=== PATIENT | male | born 1945 | race American Indian/Alaskan Native ===

== ENCOUNTER 2018-01-31 16:18 | Inpatient (IN) | payer MEDICARE ==
[2018-01-31] MEDS ORDERED: NITRO-BID 2% TP ONE ×2 (16:40→16:41)
[2018-01-31 17:06] LABS: Basophils % (Auto) 0.5 % (0.0-1.8); Eosinophils # (Auto) 0.1 K/mm3 (0.0-0.4); Eosinophils % (Auto) 1.1 % (0.0-4.3); Hematocrit 28.3 % (35.5-45.6); Hemoglobin 8.5 gm/dl (11.8-15.2); Lymphocytes # (Auto) 0.2 K/mm3 (1.2-5.4); Lymphocytes % (Auto) 3.6 % (13.4-35.0); Mean Corpuscular HGB Conc 30 % (32-34); Mean Corpuscular Volume 83 fl (84-94); Monocytes # (Auto) 0.8 K/mm3 (0.0-0.8); Monocytes % (Auto) 11.6 % (0.0-7.3); Platelet Count 289 K/mm3 (140-440); Red Cell Distribution Width 16.1 % (13.2-15.2)
[2018-01-31] MEDS ORDERED: NACL 0.9% 100 ML IV PRN (17:08)
[2018-01-31] MEDS ORDERED: NORMODYNE IV ONE ×3 (17:11→18:27)
[2018-01-31 17:13] LABS: Mean Corpuscular Hemoglobin 25 pg (28-32)
[2018-01-31 17:16] LABS: INR 1.38 (0.87-1.13)
[2018-01-31 17:17] LABS: Partial Thromboplastin Time 36.7 Sec. (24.2-36.6)
--- NOTE | 2018-01-31 17:30 | XRay Report ---
FINAL REPORT EXAM: XR CHEST 1V AP HISTORY: Dyspnea TECHNIQUE: Frontal chest radiograph. PRIORS: None. FINDINGS: There is mild cardiomegaly. Atherosclerotic calcifications are seen in the thoracic aorta. Scattered diffuse increased interstitial markings are seen in the lungs with more confluent ground-glass opacities in the right lower lobe. There is likely a small right pleural effusion. No pneumothorax. No acute osseous abnormality. IMPRESSION: Findings may represent interstitial pneumonitis versus pulmonary edema. Small right pleural effusion. Right lower lobe atelectasis versus pneumonia.
--- NOTE | 2018-01-31 17:35 | Emergency Department Report ---
ED General Adult HPI - General Chief complaint: Dyspnea/Respdistress Stated complaint: SEBASTIAN Time Seen by Provider: 01/31/18 16:24 Source: family, EMS Mode of arrival: Stretcher Limitations: Other - History of Present Illness Initial comments: The patient was transported to this facility on CPAP. He is not to be a bit hypotensive in the field. His sugar was normal. Paramedics were unaware of his pulse oximetry on room air because transport was primary service and the patient was already placed on supplemental O2 by the fire department. Patient states that he is breathing better. He is observed have continued increased work of breathing. However, he is awake and alert. Per paramedics his mental status has improved since they began CPAP. Patient does not complain of pain. He denies recent fever or chills. His family states he was too short of breath to make it to dialysis today. This is his regular scheduled today. He did not miss dialysis on Saturday. However apparently he cut his dialysis short on Saturday. He is currently a chronic dialysis patient at [facility] in [place]. -: Gradual Severity scale (0 -10): 0 - Related Data Home Medications Medication Instructions Recorded Confirmed Last Taken Prednisone 5 mg PO DAILY 01/31/18 01/31/18 1 Day Ago ~01/30/18 Tacrolimus [Prograf] 3 mg PO BID 01/31/18 01/31/18 1 Day Ago ~01/30/18 Tamsulosin [Flomax] 0.4 mg PO QHS 01/31/18 01/31/18 1 Day Ago ~01/30/18 cloNIDine [Catapres] 0.2 mg PO TID 01/31/18 01/31/18 1 Day Ago ~01/30/18 Allergies Allergy/AdvReac Type Severity Reaction Status Date / Time No Known Allergies Allergy Unverified 04/18/15 19:25 ED Review of Systems ROS: Stated complaint: SEBASTIAN Other details as noted in HPI Constitutional: denies: chills, fever Eyes: denies: eye discharge, vision change ENT: denies: ear pain, throat pain Respiratory: see HPI, shortness of breath Cardiovascular: denies: chest pain, palpitations Endocrine: no symptoms reported Gastrointestinal: denies: abdominal pain, vomiting Genitourinary: as per HPI Musculoskeletal: denies: back pain, joint swelling, arthralgia Skin: denies: rash, lesions Neurological: denies: headache, weakness Psychiatric: denies: anxiety, depression Hematological/Lymphatic: denies: easy bleeding, easy bruising ED Past Medical Hx - Past Medical History Hx Hypertension: Yes Hx Congestive Heart Failure: Yes Hx Diabetes: Yes Hx Renal Disease: Yes - Surgical History Additional Surgical History: kidney transplant 2 years ago - Social History Smoking Status: Never Smoker Substance Use Type: None - Medications Home Medications: Home Medications Medication Instructions Recorded Confirmed Last Taken Type Prednisone 5 mg PO DAILY 01/31/18 01/31/18 1 Day Ago History ~01/30/18 Tacrolimus [Prograf] 3 mg PO BID 01/31/18 01/31/18 1 Day Ago History ~01/30/18 Tamsulosin [Flomax] 0.4 mg PO QHS 01/31/18 01/31/18 1 Day Ago History ~01/30/18 cloNIDine [Catapres] 0.2 mg PO TID 01/31/18 01/31/18 1 Day Ago History ~01/30/18 ED Physical Exam - General Limitations: Physical Limitation, Other General appearance: alert, in no apparent distress - Head Head exam: Present: atraumatic, normocephalic - Eye Eye exam: Present: normal appearance. Absent: scleral icterus - ENT ENT exam: Present: mucous membranes moist - Neck Neck exam: Present: normal inspection. Absent: tenderness, meningismus - Respiratory Respiratory exam: Present: respiratory distress, rales (entire lung field bilaterally), accessory muscle use, other (increased work of breathing) - Cardiovascular Cardiovascular Exam: Present: regular rate, normal rhythm. Absent: systolic murmur, diastolic murmur, rubs, gallop - GI/Abdominal GI/Abdominal exam: Present: soft, normal bowel sounds. Absent: distended, tenderness, guarding, rebound, rigid - Rectal Rectal exam: Present: deferred - Extremities Exam Extremities exam: Present: normal inspection - Back Exam Back exam: Present: normal inspection - Neurological Exam Neurological exam: Present: alert, oriented X3, CN II-XII intact. Absent: motor sensory deficit - Psychiatric Psychiatric exam: Present: normal affect, normal mood - Skin Skin exam: Present: warm, dry, intact, normal color. Absent: rash ED Course Vital Signs 01/31/18 01/31/18 01/31/18 16:19 16:21 16:25 Temperature 97.9 F Pulse Rate 91 H 90 Respiratory 28 H 26 H 28 H Rate Blood Pressure Blood Pressure [Right] O2 Sat by Pulse 91 100 100 Oximetry O2 Sat by Pulse Oximetry [ Bilateral Throughout] 01/31/18 01/31/18 01/31/18 16:30 16:31 16:44 Temperature Pulse Rate 85 78 Respiratory 21 Rate Blood Pressure 179/80 175/90 Blood Pressure 179/80 [Right] O2 Sat by Pulse 100 Oximetry O2 Sat by Pulse Oximetry [ Bilateral Throughout] 01/31/18 01/31/18 01/31/18 16:45 17:01 17:13 Temperature Pulse Rate 82 82 82 Respiratory 19 17 Rate Blood Pressure 176/76 181/78 185/78 Blood Pressure [Right] O2 Sat by Pulse 100 100 Oximetry O2 Sat by Pulse Oximetry [ Bilateral Throughout] 01/31/18 01/31/18 01/31/18 17:15 17:31 17:45 Temperature 98.8 F Pulse Rate 70 74 71 Respiratory 16 17 18 Rate Blood Pressure 167/74 167/72 184/82 Blood Pressure [Right] O2 Sat by Pulse 97 100 100 Oximetry O2 Sat by Pulse 100 Oximetry [ Bilateral Throughout] 01/31/18 01/31/18 01/31/18 18:00 18:15 18:30 Temperature Pulse Rate 72 71 73 Respiratory 18 18 Rate Blood Pressure 192/95 191/87 187/85 Blood Pressure [Right] O2 Sat by Pulse 100 100 Oximetry O2 Sat by Pulse Oximetry [ Bilateral Throughout] 01/31/18 18:45 Temperature Pulse Rate 72 Respiratory Rate Blood Pressure 201/91 Blood Pressure [Right] O2 Sat by Pulse Oximetry O2 Sat by Pulse Oximetry [ Bilateral Throughout] - Reevaluation(s) Reevaluation #1: Patient was placed on BiPAP. He continues to be clinically stable. His chest x -ray is consistent with pulmonary edema. I spoke to Dr. Pizano and the dialysis unit concerning urgent dialysis. This is pending. Patient will be admitted by the hospitalist service. 01/31/18 17:36 Reevaluation #2: Patient has been seen by nephrology. He has been given a titrated dose of labetalol during his dialysis. We have been able to take him off BiPAP now. He will be admitted by the hospitalist service. 01/31/18 18:53 ED Medical Decision Making - Lab Data Result diagrams: 01/31/18 16:35 01/31/18 16:35 Laboratory Results - last 24 hr 01/31/18 01/31/18 01/31/18 16:35 16:35 16:35 WBC 6.5 RBC 3.40 L Hgb 8.5 L Hct 28.3 L MCV 83 L MCH 25 L MCHC 30 L RDW 16.1 H Plt Count 289 Lymph % (Auto) 3.6 L [place] % (Auto) 11.6 H Eos % (Auto) 1.1 Baso % (Auto) 0.5 Lymph # 0.2 L [place] # 0.8 Eos # 0.1 Baso # 0.0 Seg Neutrophils % 83.2 H Seg Neutrophils # 5.4 PT 17.8 H INR 1.38 H APTT 36.7 H Sodium 137 Potassium 4.0 Chloride 93.7 L Carbon Dioxide 23 Anion Gap 24 BUN 31 H Creatinine 5.7 H Estimated GFR 12 BUN/Creatinine Ratio 5 Glucose 318 H Calcium 7.0 L Magnesium 1.80 - EKG Data -: EKG Interpreted by Me EKG shows normal: sinus rhythm, intervals Rate: normal - EKG Data Interpretation: LVH (associated repolarization abnormality) - Radiology Data Radiology results: report reviewed (pulmonary edema noted) interpreted by me: Pulmonary edema Critical Care Time: Yes Critical care time in (mins) excluding proc time.: 70 Critical care attestation.: If time is entered above; I have spent that time in minutes in the direct care of this critically ill patient, excluding procedure time. ED Disposition Clinical Impression: ESRD needing dialysis, Uncontrolled hypertension Pulmonary edema Qualifiers: Chronicity: acute Qualified Code(s): J81.0 - Acute pulmonary edema Anemia Qualifiers: Anemia type: unspecified type Qualified Code(s): D64.9 - Anemia, unspecified Hyperglycemia due to type 2 diabetes mellitus Qualifiers: Diabetes mellitus retirement insulin use: unspecified retirement insulin use status Qualified Code(s): E11.65 - Type 2 diabetes mellitus with hyperglycemia Disposition: OP ADMIT IP TO THIS HOSP Is pt being admited?: Yes Does the pt Need Aspirin: Yes Condition: Stable Time of Disposition: 18:51
[2018-01-31 17:37] LABS: Alanine Aminotransferase 33 units/L (7-56); Albumin 3.2 g/dL (3.9-5); Bilirubin,Direct 0.2 mg/dL (0-0.2)
[2018-01-31] MEDS ORDERED: HumuLIN R IV ONE (17:37)
[2018-01-31 17:55] LABS: Chol/HDL Ratio 1.87 %; HDL Cholesterol 62 mg/dL (40-59); LDL Cholesterol,Direct 47 mg/dL (50-130)
--- NOTE | 2018-01-31 18:36 | Consultation ---
History of Present Illness - Reason for Consult Consult date: 01/31/18 end stage renal disease, accelerated hypertension, other (Pulmonary edema, volume overload) - History of Present Illness The patient is a 72 YO AAM with historsy significant for S/p failed Renal transplant started back on hemodialysis few days ago, ESRD, HTN, Anemia and medical non-compliance was brought into the ER by EMS with shortness of breath. Unable to obtain detailed history from patient sine patient was on BiPAP. He was found to have volume overload with pulmonary edema. During the last hemodialysis treatment he refused to remove sufficient fluid and reduced the dialysis time. He gets hemodialysis at [facility] and followed by . Patient was seen and examined while he was on hemodialysis. Past History Past Medical History: anemia, dialysis, ESRD, hypertension, other (Failed kidney transplant.) Medications and Allergies Allergies Allergy/AdvReac Type Severity Reaction Status Date / Time No Known Allergies Allergy Unverified 04/18/15 19:25 Home Medications Medication Instructions Recorded Confirmed Last Taken Type Prednisone 5 mg PO DAILY 01/31/18 01/31/18 1 Day Ago History ~01/30/18 Tacrolimus [Prograf] 3 mg PO BID 01/31/18 01/31/18 1 Day Ago History ~01/30/18 Tamsulosin [Flomax] 0.4 mg PO QHS 01/31/18 01/31/18 1 Day Ago History ~01/30/18 cloNIDine [Catapres] 0.2 mg PO TID 01/31/18 01/31/18 1 Day Ago History ~01/30/18 Active Meds: Active Medications Sodium Chloride (Nacl 0.9%) 100 mls @ 999 mls/hr IV VEDA PRN PRN Reason: Hypotension Review of Systems ROS unobtainable: due to mental status (Patient was on BiPAP) Exam - Vital Signs Vital signs: Vital Signs Temp Pulse Resp Pulse Ox 97.9 F 91 H 28 H 91 01/31/18 16:19 01/31/18 16:19 01/31/18 16:19 01/31/18 16:19 - General Appearance General appearance: well-developed, well-nourished, appears stated age, other ( on BIPAP) EENT: ATNC, PERRL, hearing intact Neck: Present: neck supple, trachea midline Heart: regular, S1S2, no murmurs Gastrointestinal: Present: normoactive bowel sounds. Absent: tenderness Integumentary: no rash, warm and dry Neurologic: other (follows command) Musculoskeletal: Present: other (left arm AVF, no edema) Psychiatric: cooperative Results - Lab Results 01/31/18 16:35 01/31/18 16:35 Most recent lab results Calcium 7.0 mg/dL (8.4-10.2) L 01/31/18 16:35 Phosphorus 3.40 mg/dL (2.5-4.5) 01/31/18 16:35 Magnesium 1.80 mg/dL (1.7-2.3) 01/31/18 16:35 Assessment and Plan 1. Volume overload with pulmonary edema: Emergent hemodialysis as planned. UF 3-4 Lts as tolerated. 2. ESRD: Hemodialysis three times a week. 3. Uncontrolled HTN: UF with hemodialysis. Resume home meds. Monitor BP. 4. Anemia: Epogen when the BP is controlled. 5. Medical non-compliance.
[2018-01-31] MEDS: BABY ASPIRIN PO SCH (22:48)
[2018-02-01] MEDS ORDERED: D50W (25GM) Syringe IV PRN (09:37)
--- NOTE | 2018-02-01 10:07 | Progress Note ---
Assessment and Plan 1. Volume overload with pulmonary edema: Symptoms improved after urgent hemodialysis yesterday. 2. ESRD: Hemodialysis three times a week. 3. Uncontrolled HTN: BP is better. 4. Anemia: Epogen as needed. 5. Medical non-compliance: Compliance encouraged. Subjective Date of service: 02/01/18 Interval history: Patient is feeling better today. Objective - Vital Signs Vital signs: Vital Signs - 12hr 01/31/18 01/31/18 02/01/18 22:10 22:35 00:19 Temperature 97.9 F 97.2 F L Pulse Rate 74 72 68 Respiratory 14 22 18 Rate Blood Pressure 151/69 155/68 171/80 O2 Sat by Pulse 100 99 100 Oximetry 02/01/18 02/01/18 02/01/18 01:25 05:03 08:06 Temperature 98.1 F 98.8 F Pulse Rate 68 72 70 Respiratory 20 18 Rate Blood Pressure 172/79 175/80 O2 Sat by Pulse 100 100 Oximetry - General Appearance General appearance: well-developed, well-nourished, appears stated age, other ( no distress) EENT: ATNC, PERRL, hearing intact Neck: supple Respiratory: Present: Clear to Ascultation Cardiology: S1S2, no murmurs Gastrointestinal: normoactive bowel sounds, no tenderness Integumentary: no rash, warm and dry Neurologic: no focal deficit, no asterixis, alert and oriented x3 Musculoskeletal: other (no edema, left arm AVF) Psychiatric: mood/affect appropriate, cooperative - Lab 01/31/18 16:35 01/31/18 16:35 Most recent lab results Calcium 7.0 mg/dL (8.4-10.2) L 01/31/18 16:35 Phosphorus 3.40 mg/dL (2.5-4.5) 01/31/18 16:35 Magnesium 1.80 mg/dL (1.7-2.3) 01/31/18 16:35
[2018-02-01] MEDS: BABY ASPIRIN PO SCH (10:21)
[2018-02-01] MEDS: CATAPRES PO SCH ×3 (10:40→21:40)
[2018-02-01] MEDS: HumaLOG SUB-Q SCH ×3 (12:35→23:18)
--- NOTE | 2018-02-01 14:26 | History and Physical Report ---
History of Present Illness Date of examination: 02/01/18 Date of admission: 01/31/18 16:56 Chief complaint: Shortness of breath Cough Generalized weakness History of present illness: Patient seen and examined chart reviewed records from the emergency room also reviewed. 72-year-old male in the patient was admitted initially to the hospitalist service presented emergency room yesterday on account of progressive shortness of breath cough and generalized weakness. Patient with history of end-stage renal disease on hemodialysis patient recently had failure of kidney transplant and restarted on hemodialysis approximately one month ago stated that he has been having progressive shortness of breath over the last one week currently on 3 times weekly hemodialysis and stated that he has not missed any days of dialysis. Patient reported a cough became more problematic yesterday with associated shortness of breath cough productive of mostly initially greenish sputum but has become clear, no fever no chest pain. 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 Redding who is not on staff at [facility]. Patient denied any leg swelling but has been having some orthopnea, denied any fever or chills. Past History Past Medical History: anemia, diabetes (previous hemicolectomy, permanent colostomy secondary to colon cancer), dialysis, ESRD, hypertension, other ( Failed kidney transplant.) Past Surgical History: bowel surgery (permanent colostomy secondary to colon cancer) Social history: , lives with family Family history: hypertension Medications and Allergies Allergies Allergy/AdvReac Type Severity Reaction Status Date / Time No Known Allergies Allergy Unverified 04/18/15 19:25 Home Medications Medication Instructions Recorded Confirmed Last Taken Type Prednisone 5 mg PO DAILY 01/31/18 01/31/18 1 Day Ago History ~01/30/18 Tacrolimus [Prograf] 3 mg PO BID 01/31/18 01/31/18 1 Day Ago History ~01/30/18 Tamsulosin [Flomax] 0.4 mg PO QHS 01/31/18 01/31/18 1 Day Ago History ~01/30/18 cloNIDine [Catapres] 0.2 mg PO TID 01/31/18 01/31/18 1 Day Ago History ~01/30/18 Active Meds: Active Medications Aspirin (Baby Aspirin) 81 mg PO QDAY [facility] Last Admin: 02/01/18 10:21 Dose: 81 mg Clonidine HCl (Catapres) 0.2 mg PO TID [facility] Last Admin: 02/01/18 10:40 Dose: 0.2 mg Dextrose (D50w (25gm) Syringe) 50 ml IV PRN PRN PRN Reason: Hypoglycemia Sodium Chloride (Nacl 0.9%) 100 mls @ 999 mls/hr IV VEDA PRN PRN Reason: Hypotension Insulin Human Lispro (Humalog) 0 unit SUB-Q ACHS [facility]; Protocol Last Admin: 02/01/18 12:35 Dose: Not Given Review of Systems Constitutional: fatigue, weakness Cardiovascular: orthopnea, palpitations, syncope, high blood pressure Respiratory: shortness of breath, dyspnea on exertion Allergic/Immunologic: wheezing Exam - Physical Exam Narrative exam: GENERAL: Chronically ill-looking, mild respiratory distress HEENT: Head examination showed normocephalic. Patient is mildly pale, not jaundiced, and not cyanosed. ucous membrane is moist, pharynx is clear, no exudates or hemorrhage. Dentition is normal.]ARAM: [Supe. Neck showed good range of motion. Engorged neck veins.] Nckascultation showed no carotid bruit.] LIDIA/LUNGS: [Good ai exchange bilateral coarse rales was in the bases bilaterally , prolonged expiration] HERTCARDIOVASCULAR: [No mumur Regular rate and rhythm. S1 and S2 only, no S3 gallop, no S4.] ABDMEN [Abdomenis oft, nontender. Patient has normal bowel sounds. There is no abdominal distention. Liver and spleen not palpably enlarged colostomy in place and functional no guarding no rebound no palpable mass palpable abdomen.] SKIN [Thre isno rsh. There is no edema. There is no diaphoresis.] NEURO [Thepatiet is wake, alert, and oriented. The patient is cooperative. The patient has no focal neurologic deficits. Cranial nerves 2-12 grossly normal, power is 5/5 in all the extremities tested. The patient has normal speech and gait.] MUSCULSKELETL: [There is n tendeness or deformity. There is no limitation range of motion. There is no evidence of acute injury.] EXTREMIIES: [N pedal edema, novaricose veins, good peripheral pulses symmetrical and bilaterally, no pretibial edema, no finger or toe clubbing.] - Constitutional Vitals: Temp Pulse Resp BP Pulse Ox 98.8 F 70 18 175/80 100 02/01/18 08:06 02/01/18 10:40 02/01/18 08:06 02/01/18 10:40 02/01/18 08:06 Results - Labs CBC & Chem 7: 01/31/18 16:35 01/31/18 16:35 Labs: Abnormal lab results 01/31/18 01/31/18 01/31/18 Range/Units 16:35 16:35 16:35 RBC 3.40 L (3.65-5.03) M/mm3 Hgb 8.5 L (11.8-15.2) gm/dl Hct 28.3 L (35.5-45.6) % MCV 83 L (84-94) fl MCH 25 L (28-32) pg MCHC 30 L (32-34) % RDW 16.1 H (13.2-15.2) % Lymph % (Auto) 3.6 L (13.4-35.0) % [place] % (Auto) 11.6 H (0.0-7.3) % Lymph # 0.2 L (1.2-5.4) K/mm3 Seg Neutrophils % 83.2 H (40.0-70.0) % PT 17.8 H (12.2-14.9) Sec. INR 1.38 H (0.87-1.13) APTT 36.7 H (24.2-36.6) Sec. Chloride 93.7 L (98-107) mmol/L BUN 31 H (9-20) mg/dL Creatinine 5.7 H (0.8-1.5) mg/dL Glucose 318 H (75-100) mg/dL POC Glucose (70-105) Calcium 7.0 L (8.4-10.2) mg/dL Alkaline Phosphatase (35-129) units/L Troponin T (0.00-0.029) ng/mL NT-Pro-B Natriuret Pep (0-900) pg/mL Albumin (3.9-5) g/dL LDL Cholesterol Direct (50-130) mg/dL HDL Cholesterol (40-59) mg/dL 01/31/18 02/01/18 Range/Units 16:35 11:15 RBC (3.65-5.03) M/mm3 Hgb (11.8-15.2) gm/dl Hct (35.5-45.6) % MCV (84-94) fl MCH (28-32) pg MCHC (32-34) % RDW (13.2-15.2) % Lymph % (Auto) (13.4-35.0) % [place] % (Auto) (0.0-7.3) % Lymph # (1.2-5.4) K/mm3 Seg Neutrophils % (40.0-70.0) % PT (12.2-14.9) Sec. INR (0.87-1.13) APTT (24.2-36.6) Sec. Chloride (98-107) mmol/L BUN (9-20) mg/dL Creatinine (0.8-1.5) mg/dL Glucose (75-100) mg/dL POC Glucose 147 H (70-105) Calcium (8.4-10.2) mg/dL Alkaline Phosphatase 167 H (35-129) units/L Troponin T 0.136 H* (0.00-0.029) ng/mL NT-Pro-B Natriuret Pep > 56279 H (0-900) pg/mL Albumin 3.2 L (3.9-5) g/dL LDL Cholesterol Direct 47 L (50-130) mg/dL HDL Cholesterol 62 H (40-59) mg/dL Assessment and Plan - Patient Problems (1) ESRD needing dialysis Current Visit: Yes Status: Acute Plan to address problem: Patient currently admitted with pulmonary edema, and see renal disease now back on hemodialysis and patient will need urgent hemodialysis. Nephrology consult already placed and patient has been evaluated had hemodialysis yesterday and probably will need another hemodialysis today. (2) Hyperglycemia due to type 2 diabetes mellitus Current Visit: Yes Status: Acute Qualifiers: Diabetes mellitus intermediate designer insulin use: unspecified intermediate insulin use status Qualified Code(s): E11.65 - Type 2 diabetes mellitus with hyperglycemia Plan to address problem: Will add long-acting insulin as well as sliding scale regular insulin for better coverage of uncontrolled diabetes at this time, admitting blood sugar was noted to be 347 (3) Pulmonary edema Current Visit: Yes Status: Acute Qualifiers: Chronicity: acute Qualified Code(s): J81.0 - Acute pulmonary edema Plan to address problem: Patient to have hemodialysis to pull additional volume (4) Uncontrolled hypertension Current Visit: Yes Status: Acute Plan to address problem: Currently medication will adjust current medication for better optimal control of blood pressure.
[2018-02-01] MEDS: TYLENOL PO PRN (15:15)
[2018-02-01] MEDS ORDERED: MUCINEX ER PO ONE ×2 (16:00→23:28)
[2018-02-01] MEDS ORDERED: CATAPRES PO SCH (20:00)
[2018-02-01] MEDS: BIDIL 20/37.5MG PO SCH (21:40)
[2018-02-01] MEDS: FLOMAX PO SCH (21:41)
[2018-02-01] MEDS ORDERED: LANTUS SUB-Q SCH (22:00)
[2018-02-01] MEDS ORDERED: DUONEB *Not for PRN Use IH (23:07)
[2018-02-01] MEDS: LANTUS SUB-Q SCH (23:18)
[2018-02-01] MEDS ORDERED: PROVENTIL IH PRN (23:45)
[2018-02-02] MEDS: BIDIL 20/37.5MG PO SCH ×3 (06:24→21:20)
[2018-02-02 07:01] LABS: Hematocrit 29.6 % (35.5-45.6); Hemoglobin 9.3 gm/dl (11.8-15.2); Mean Corpuscular HGB Conc 31 % (32-34); Mean Corpuscular Volume 81 fl (84-94); Platelet Count 287 K/mm3 (140-440); Red Blood Count 3.65 M/mm3 (3.65-5.03); Red Cell Distribution Width 16.1 % (13.2-15.2)
[2018-02-02 07:04] LABS: Mean Corpuscular Hemoglobin 26 pg (28-32)
--- NOTE | 2018-02-02 08:29 | Progress Note ---
Assessment and Plan 1. Volume overload with pulmonary edema: Symptoms improved after urgent hemodialysis 2 days ago. 2. ESRD: Hemodialysis three times a week. 3. Uncontrolled HTN: BP is better. 4. Anemia: Epogen as needed. 5. Medical non-compliance: Compliance encouraged. Subjective Date of service: 02/02/18 Interval history: Patient is feeling better today. Objective - Vital Signs Vital signs: Vital Signs - 12hr 02/01/18 02/02/18 02/02/18 21:40 00:20 01:15 Temperature 98.2 F Pulse Rate 77 64 Pulse Rate [ 64 Bilateral Throughout] Respiratory 18 Rate Respiratory 20 Rate [Bilateral Throughout] Blood Pressure 116/68 Blood Pressure 145/76 [Right] O2 Sat by Pulse 99 Oximetry 02/02/18 02/02/18 02/02/18 01:33 04:11 04:56 Temperature 98.2 F Pulse Rate 64 71 Pulse Rate [ 69 Bilateral Throughout] Respiratory 18 Rate Respiratory 20 Rate [Bilateral Throughout] Blood Pressure Blood Pressure 154/77 [Right] O2 Sat by Pulse 93 Oximetry 02/02/18 06:24 Temperature Pulse Rate 71 Pulse Rate [ Bilateral Throughout] Respiratory Rate Respiratory Rate [Bilateral Throughout] Blood Pressure 154/77 Blood Pressure [Right] O2 Sat by Pulse Oximetry - General Appearance General appearance: well-developed, well-nourished, appears stated age, other ( no distress) EENT: ATNC, PERRL, hearing intact, vision intact Neck: supple Respiratory: Present: Clear to Ascultation Cardiology: regular, S1S2, no murmurs Gastrointestinal: normoactive bowel sounds, no tenderness, no distended Integumentary: no rash, warm and dry Neurologic: no focal deficit, no asterixis, alert and oriented x3 Musculoskeletal: other (no edema, left arm AVF) Psychiatric: cooperative - Lab 02/02/18 06:26 01/31/18 16:35 Most recent lab results Calcium 7.0 mg/dL (8.4-10.2) L 01/31/18 16:35 Phosphorus 3.40 mg/dL (2.5-4.5) 01/31/18 16:35 Magnesium 1.80 mg/dL (1.7-2.3) 01/31/18 16:35
[2018-02-02] MEDS ORDERED: MUCINEX ER PO SCH (10:00)
[2018-02-02] MEDS: HumaLOG SUB-Q SCH ×4 (10:53→22:47)
[2018-02-02] MEDS: CATAPRES PO SCH ×3 (10:54→21:20)
[2018-02-02] MEDS: BABY ASPIRIN PO SCH (10:55)
--- NOTE | 2018-02-02 15:26 | Progress Note ---
Assessment and Plan - Patient Problems (1) ESRD needing dialysis Current Visit: Yes Status: Acute Plan to address problem: Patient currently admitted with pulmonary edema, and see renal disease now back on hemodialysis and patient will need urgent hemodialysis. Nephrology consult already placed and patient has been evaluated had hemodialysis yesterday and probably will need another hemodialysis today. (2) Hyperglycemia due to type 2 diabetes mellitus Current Visit: Yes Status: Acute Qualifiers: Diabetes mellitus meterman insulin use: unspecified penitentiary insulin use status Qualified Code(s): E11.65 - Type 2 diabetes mellitus with hyperglycemia Plan to address problem: Will add long-acting insulin as well as sliding scale regular insulin for better coverage of uncontrolled diabetes at this time, admitting blood sugar was noted to be 347 (3) Pulmonary edema Current Visit: Yes Status: Acute Qualifiers: Chronicity: acute Qualified Code(s): J81.0 - Acute pulmonary edema Plan to address problem: Patient to have hemodialysis to pull additional volume (4) Uncontrolled hypertension Current Visit: Yes Status: Acute Plan to address problem: Currently medication will adjust current medication for better optimal control of blood pressure. Subjective Date of service: 02/02/18 Principal diagnosis: congestive heart failure, end-stage renal disease. Interval history: Pressure stated that he is feeling better less short of breath and her reported cough minimally productive of clear sputum no chest pain Objective - Exam Narrative Exam: GENERAL: Chronically ill-looking, mild respiratory distress HEENT: Head examination showed normocephalic. Patient is mildly pale, not jaundiced, and not cyanosed. ucous membrane is moist, pharynx is clear, no exudates or hemorrhage. Dentition is normal.]ARAM: [Supe. Neck showed good range of motion. Engorged neck veins.] Nckascultation showed no carotid bruit.] LIDIA/LUNGS: [Good ai exchange bilateral coarse rales was in the bases bilaterally , prolonged expiration] HERTCARDIOVASCULAR: [No mumur Regular rate and rhythm. S1 and S2 only, no S3 gallop, no S4.] ABDMEN [Abdomenis oft, nontender. Patient has normal bowel sounds. There is no abdominal distention. Liver and spleen not palpably enlarged colostomy in place and functional no guarding no rebound no palpable mass palpable abdomen.] SKIN [Thre isno rsh. There is no edema. There is no diaphoresis.] NEURO [Thepatiet is wake, alert, and oriented. The patient is cooperative. The patient has no focal neurologic deficits. Cranial nerves 2-12 grossly normal, power is 5/5 in all the extremities tested. The patient has normal speech and gait.] MUSCULSKELETL: [There is n tendeness or deformity. There is no limitation range of motion. There is no evidence of acute injury.] EXTREMIIES: [N pedal edema, novaricose veins, good peripheral pulses symmetrical and bilaterally, no pretibial edema, no finger or toe clubbing.] - Constitutional Vitals: Vital Signs - 12hr 02/02/18 02/02/18 02/02/18 04:11 04:56 06:24 Temperature 98.2 F Pulse Rate 64 71 71 Respiratory 18 Rate Blood Pressure 154/77 Blood Pressure 154/77 [Right] O2 Sat by Pulse 93 Oximetry 02/02/18 02/02/18 02/02/18 08:55 09:05 10:54 Temperature 98.6 F 98.6 F Pulse Rate 74 74 72 Respiratory 18 18 Rate Blood Pressure Blood Pressure 133/65 133/65 [Right] O2 Sat by Pulse 95 95 Oximetry 02/02/18 02/02/18 12:33 14:27 Temperature 97.6 F Pulse Rate 69 73 Respiratory 18 Rate Blood Pressure 138/60 Blood Pressure 139/56 [Right] O2 Sat by Pulse 97 Oximetry - Labs CBC & Chem 7: 02/02/18 06:26 01/31/18 16:35 Labs: Abnormal lab results 02/02/18 02/02/18 02/02/18 Range/Units 04:42 06:26 12:21 Hgb 9.3 L (11.8-15.2) gm/dl Hct 29.6 L (35.5-45.6) % MCV 81 L (84-94) fl MCH 26 L (28-32) pg MCHC 31 L (32-34) % RDW 16.1 H (13.2-15.2) % POC Glucose 160 H 219 H (70-105)
[2018-02-02] MEDS: LANTUS SUB-Q SCH (21:20)
[2018-02-02] MEDS: FLOMAX PO SCH (21:20)
[2018-02-02] MEDS ORDERED: MUCINEX ER PO ONE (23:10)
[2018-02-03] MEDS: TYLENOL PO PRN (00:31)
[2018-02-03] MEDS: BIDIL 20/37.5MG PO SCH ×3 (05:24→22:55)
[2018-02-03] MEDS: HumaLOG SUB-Q SCH ×4 (09:00→22:56)
[2018-02-03] MEDS: BABY ASPIRIN PO SCH (09:02)
--- NOTE | 2018-02-03 09:14 | Discharge Summary ---
Providers - Providers Date of Admission: 01/31/18 16:56 Date of discharge: 02/03/18 Attending physician: LORI ALVAREZ 01/31/18 16:40 Consult to Physician [CONS] Urgent Comment: Consulting Provider: KAVON NOE Physician Instructions: Reason For Exam: ESRD needs dialysis Primary care physician: LORI ALVAREZ Hospitalization Reason for admission: shortness of breath, weakness Condition: Stable Pertinent studies: Chest x-ray showing increased vascular congestion Procedures: Emergency hemodialysis for pulmonary edema and volume overload Hospital course: 72-year-old male who was admitted via the emergency room with complaint of acute shortness of breath and difficulty with ambulation and generalized weakness. 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 Cough was described as mostly clear but with thick sputum no associated chest pain but patient has shortness of breath with minimal exertion and also orthopnea. Patient was evaluated in emergency room and consult was made to nephrology patient was evaluated by Dr. estrada and Emergency hemodialysis was ordered which was performed with some improvement in overall symptoms. Further evaluation including cardiac enzyme was unremarkable patient has chronically elevated troponin levels but there was no EKG changes consistent with any acute cardiac event. Patient had a repeat hemodialysis performed yesterday and has continued to improve clinically overall. Patient has remained afebrile white count has remained within normal range and patient is able to ambulate with minimal difficulty at this time and assessed to be stable enough to be discharged home to follow-up with his primary care physician Dr. Alvarez and also to follow up with the track moving machine operator Dr. Redding in [place]. Stressed the need for low- sodium diet and water restriction to patient's and compliance with follow-up. Disposition: TO HOME OR SELFCARE - Discharge Diagnoses (1) ESRD needing dialysis Status: Chronic (2) Hyperglycemia due to type 2 diabetes mellitus Status: Chronic Qualifiers: Diabetes mellitus fpc insulin use: unspecified supervisor chemical insulin use status Qualified Code(s): E11.65 - Type 2 diabetes mellitus with hyperglycemia (3) Pulmonary edema Status: Resolved Qualifiers: Chronicity: acute Qualified Code(s): J81.0 - Acute pulmonary edema (4) Uncontrolled hypertension Status: Resolved Core Measure Documentation - Palliative Care Palliative Care/ Comfort Measures: Not Applicable - Core Measures Any of the following diagnoses?: heart failure - Heart Failure Discharge Requirements MARSHA/ARB for LVSD if EF <40%: Yes Beta tiffany at discharge: Yes Exam - Physical Exam Narrative exam: GENERAL: Chronically ill-looking, mild respiratory distress HEENT: Head examination showed normocephalic. Patient is mildly pale, not jaundiced, and not cyanosed. ucous membrane is moist, pharynx is clear, no exudates or hemorrhage. Dentition is normal.]ARAM: [Supe. Neck showed good range of motion. Engorged neck veins.] Nckascultation showed no carotid bruit.] LIDIA/LUNGS: [Good ai exchange bilateral coarse rales was in the bases bilaterally , prolonged expiration] HERTCARDIOVASCULAR: [No mumur Regular rate and rhythm. S1 and S2 only, no S3 gallop, no S4.] ABDMEN [Abdomenis oft, nontender. Patient has normal bowel sounds. There is no abdominal distention. Liver and spleen not palpably enlarged colostomy in place and functional no guarding no rebound no palpable mass palpable abdomen.] SKIN [Thre isno rsh. There is no edema. There is no diaphoresis.] NEURO [Thepatiet is wake, alert, and oriented. The patient is cooperative. The patient has no focal neurologic deficits. Cranial nerves 2-12 grossly normal, power is 5/5 in all the extremities tested. The patient has normal speech and gait.] MUSCULSKELETL: [There is n tendeness or deformity. There is no limitation range of motion. There is no evidence of acute injury.] EXTREMIIES: [N pedal edema, novaricose veins, good peripheral pulses symmetrical and bilaterally, no pretibial edema, no finger or toe clubbing.] - Constitutional Vitals: Temp Pulse Resp BP Pulse Ox 97.4 F L 57 L 18 148/65 96 02/03/18 07:36 02/03/18 07:36 02/03/18 07:36 02/03/18 07:36 02/03/18 07:36 Plan Activity: advance as tolerated Weight Bearing Status: Full Weight Bearing Diet: low salt, diabetic (discharge only after hemodialysis is completed and patient is cleared by nephrology for discharge), low carbohydrate Special Instructions: restrict fluid intake to (1200 mL per day) Follow up with: PRIMARY CARE, [Referring] - 3-5 Days
[2018-02-03] MEDS ORDERED: NACL 0.9% 100 ML IV PRN (09:47)
--- NOTE | 2018-02-03 09:49 | Progress Note ---
Assessment and Plan 1. Volume overload with pulmonary edema: Symptoms improved after urgent hemodialysis. Salt and fluid compliance encouraged. 2. ESRD: Hemodialysis three times a week. HD today. 3. Uncontrolled HTN: BP is better. 4. Anemia: Epogen as needed. 5. Medical non-compliance: Compliance encouraged. Subjective Date of service: 02/03/18 Principal diagnosis: congestive heart failure, end-stage renal disease. Interval history: Patient is feeling better overall. Objective - Vital Signs Vital signs: Vital Signs - 12hr 02/02/18 02/02/18 02/03/18 22:00 23:31 00:31 Temperature 97.7 F Pulse Rate 69 Respiratory 20 22 Rate Blood Pressure 147/78 O2 Sat by Pulse 99 100 Oximetry 02/03/18 02/03/18 02/03/18 04:29 04:52 07:36 Temperature 98.0 F 97.4 F L Pulse Rate 69 62 57 L Respiratory 20 18 Rate Blood Pressure 147/70 148/65 O2 Sat by Pulse 98 96 Oximetry - General Appearance General appearance: well-developed, well-nourished, appears stated age, other ( no distress) EENT: ATNC, PERRL, hearing intact, vision intact Neck: supple Respiratory: Present: Rales (faint) Cardiology: regular, S1S2, no murmurs Gastrointestinal: normoactive bowel sounds, no tenderness, no distended Integumentary: no rash, warm and dry Neurologic: no focal deficit, no asterixis Musculoskeletal: other (no edema) Psychiatric: mood/affect appropriate, cooperative - Lab 02/02/18 06:26 01/31/18 16:35 Most recent lab results Calcium 7.0 mg/dL (8.4-10.2) L 01/31/18 16:35 Phosphorus 3.40 mg/dL (2.5-4.5) 01/31/18 16:35 Magnesium 1.80 mg/dL (1.7-2.3) 01/31/18 16:35
[2018-02-03] MEDS: CATAPRES PO SCH ×3 (14:00→22:55)
[2018-02-03] MEDS ORDERED: GUAIFENESIN DM SYRUP PO PRN (14:58)
[2018-02-03] MEDS: LANTUS SUB-Q SCH (22:53)
[2018-02-03] MEDS: FLOMAX PO SCH (22:55)
[2018-02-04] MEDS: BIDIL 20/37.5MG PO SCH (06:51)
--- NOTE | 2018-02-04 08:16 | Progress Note ---
Assessment and Plan 1. Volume overload with pulmonary edema: Symptoms improved after urgent hemodialysis. Salt and fluid compliance encouraged. 2. ESRD: Hemodialysis three times a week. 3. Uncontrolled HTN: BP is better. 4. Anemia: Epogen as needed. 5. Medical non-compliance: Compliance encouraged. Subjective Date of service: 02/04/18 Principal diagnosis: congestive heart failure, end-stage renal disease. Interval history: Patient is feeling better overall. Patient couldn't go home yesterday, he is leaving today. Objective - Vital Signs Vital signs: Vital Signs - 12hr 02/03/18 02/03/18 02/03/18 22:00 22:55 23:57 Temperature 98.7 F Pulse Rate 84 89 Respiratory 18 Rate Blood Pressure 188/85 130/68 Blood Pressure [Right] O2 Sat by Pulse 99 98 Oximetry 02/03/18 02/04/18 02/04/18 23:58 04:10 06:51 Temperature 98.1 F Pulse Rate 86 86 81 Respiratory 18 Rate Blood Pressure 134/66 Blood Pressure 134/66 [Right] O2 Sat by Pulse 99 99 Oximetry - General Appearance General appearance: well-developed, well-nourished, appears stated age, other ( no distress) EENT: ATNC, PERRL, hearing intact, vision intact Neck: supple Respiratory: Present: Clear to Ascultation Cardiology: regular, S1S2 Gastrointestinal: normoactive bowel sounds, no tenderness, no distended, other ( ostomy noted) Integumentary: no rash, warm and dry Neurologic: no focal deficit, no asterixis, alert and oriented x3 Musculoskeletal: other (no edema, left arm AVF) Psychiatric: mood/affect appropriate, cooperative - Lab 02/02/18 06:26 01/31/18 16:35 Most recent lab results Calcium 7.0 mg/dL (8.4-10.2) L 01/31/18 16:35 Phosphorus 3.40 mg/dL (2.5-4.5) 01/31/18 16:35 Magnesium 1.80 mg/dL (1.7-2.3) 01/31/18 16:35
[2018-02-04 09:06] VITALS: BP 133/76
--- NOTE | 2018-02-04 09:38 | Progress Note ---
Assessment and Plan - Patient Problems (1) ESRD needing dialysis Current Visit: Yes Status: Chronic Plan to address problem: Patient currently admitted with pulmonary edema, and see renal disease now back on hemodialysis and patient will need urgent hemodialysis. Nephrology consult already placed and patient has been evaluated had hemodialysis yesterday and probably will need another hemodialysis today. (2) Hyperglycemia due to type 2 diabetes mellitus Current Visit: Yes Status: Chronic Qualifiers: Diabetes mellitus fci insulin use: unspecified fci insulin use status Qualified Code(s): E11.65 - Type 2 diabetes mellitus with hyperglycemia Plan to address problem: Will add long-acting insulin as well as sliding scale regular insulin for better coverage of uncontrolled diabetes at this time, admitting blood sugar was noted to be 347 (3) Pulmonary edema Current Visit: Yes Status: Resolved Qualifiers: Chronicity: acute Qualified Code(s): J81.0 - Acute pulmonary edema Plan to address problem: Patient to have hemodialysis to pull additional volume (4) Uncontrolled hypertension Current Visit: Yes Status: Resolved Plan to address problem: Currently medication will adjust current medication for better optimal control of blood pressure. Subjective Date of service: 02/04/18 Principal diagnosis: congestive heart failure, end-stage renal disease. Interval history: Patient could not be discharged yesterday due to hemodialysis completed late in the evening. Patient feeling better no new complaints remains afebrile no chest pain and shortness of breath is improving. Objective - Exam Narrative Exam: GENERAL: Chronically ill-looking, mild respiratory distress HEENT: Head examination showed normocephalic. Patient is mildly pale, not jaundiced, and not cyanosed. ucous membrane is moist, pharynx is clear, no exudates or hemorrhage. Dentition is normal.]ARAM: [Supe. Neck showed good range of motion. Engorged neck veins.] Nckascultation showed no carotid bruit.] LIDIA/LUNGS: [Good ai exchange bilateral coarse rales was in the bases bilaterally , prolonged expiration] HERTCARDIOVASCULAR: [No mumur Regular rate and rhythm. S1 and S2 only, no S3 gallop, no S4.] ABDMEN [Abdomenis oft, nontender. Patient has normal bowel sounds. There is no abdominal distention. Liver and spleen not palpably enlarged colostomy in place and functional no guarding no rebound no palpable mass palpable abdomen.] SKIN [Thre isno rsh. There is no edema. There is no diaphoresis.] NEURO [Thepatiet is wake, alert, and oriented. The patient is cooperative. The patient has no focal neurologic deficits. Cranial nerves 2-12 grossly normal, power is 5/5 in all the extremities tested. The patient has normal speech and gait.] MUSCULSKELETL: [There is n tendeness or deformity. There is no limitation range of motion. There is no evidence of acute injury.] EXTREMIIES: [N pedal edema, novaricose veins, good peripheral pulses symmetrical and bilaterally, no pretibial edema, no finger or toe clubbing.] - Constitutional Vitals: Vital Signs - 12hr 02/03/18 02/03/18 02/03/18 22:00 22:55 23:57 Temperature 98.7 F Pulse Rate 84 89 Respiratory 18 Rate Blood Pressure 188/85 130/68 Blood Pressure [Right] O2 Sat by Pulse 99 98 Oximetry 02/03/18 02/04/18 02/04/18 23:58 04:10 06:51 Temperature 98.1 F Pulse Rate 86 86 81 Respiratory 18 Rate Blood Pressure 134/66 Blood Pressure 134/66 [Right] O2 Sat by Pulse 99 99 Oximetry 02/04/18 07:55 Temperature 98.0 F Pulse Rate 84 Respiratory 18 Rate Blood Pressure 133/76 Blood Pressure [Right] O2 Sat by Pulse 93 Oximetry - Labs CBC & Chem 7: 02/02/18 06:26 01/31/18 16:35 Labs: Abnormal lab results 02/03/18 02/03/18 02/04/18 Range/Units 10:32 22:53 06:11 POC Glucose 128 H 193 H 130 H (70-105)
[2018-02-04] MEDS: BABY ASPIRIN PO SCH (10:23)
[2018-02-04] MEDS: HumaLOG SUB-Q SCH (10:24)
== END 2018-02-04 11:18 | disposition home or self-care (01) | DRG 291 ==
LOC: ED 16:18 → 4A 16:56
PROVIDERS: ADMIT Internal Medicine; ATTEND Internal Medicine
PROC: 5A09357 Assistance with Respiratory Ventilation, Less than 24 Consecutive Hours, Continuous Positive Airway Pressure (ICD-10-PCS; principal; 2018-01-31)
PROC: 5A1D70Z Performance of Urinary Filtration, Intermittent, Less than 6 Hours Per Day (ICD-10-PCS; 2018-01-31)
PROC: 5A1D70Z Performance of Urinary Filtration, Intermittent, Less than 6 Hours Per Day (ICD-10-PCS; 2018-02-03)
DX: I13.2 Hypertensive heart and chronic kidney disease with heart failure and with stage 5 chronic kidney disease, or end stage renal disease (principal); N18.6 End stage renal disease; Z94.0 Kidney transplant status; J81.1 Chronic pulmonary edema; E87.70 Fluid overload, unspecified; E11.22 Type 2 diabetes mellitus with diabetic chronic kidney disease; E11.65 Type 2 diabetes mellitus with hyperglycemia; I50.9 Heart failure, unspecified; D64.9 Anemia, unspecified; Z79.899 Other long term (current) drug therapy; Z82.49 Family history of ischemic heart disease and other diseases of the circulatory system; Z91.14 Patient's other noncompliance with medication regimen
CPT/HCPCS: 36415; 71045; 80048; 80061; 80074; 82962; 83735; 83880; 84100; 84484; 85025; 85027; 85610; 85730; 93005; 93010; 94640; 94760; 96374; 99291; J1815

== ENCOUNTER 2018-08-14 14:14 | Inpatient (IN) | payer BC, MEDICARE ==
[2018-08-14] MEDS ORDERED: SODIUM CHLORIDE FLUSH SYRINGE 10 ML IV PRN (14:53)
[2018-08-14] MEDS ORDERED: D50W (25GM) Syringe IV PRN (14:53)
[2018-08-14 16:37] LABS: Basophils # (Auto) 0.1 K/mm3 (0.0-0.1); Basophils % (Auto) 1.9 % (0.0-1.8); Eosinophils # (Auto) 0.7 K/mm3 (0.0-0.4); Eosinophils % (Auto) 11.6 % (0.0-4.3); Hematocrit 32.8 % (35.5-45.6); Hemoglobin 10.5 gm/dl (11.8-15.2); Lymphocytes # (Auto) 0.9 K/mm3 (1.2-5.4); Lymphocytes % (Auto) 14.1 % (13.4-35.0); Mean Corpuscular HGB Conc 32 % (32-34); Mean Corpuscular Hemoglobin 26 pg (28-32); Mean Corpuscular Volume 82 fl (84-94); Monocytes # (Auto) 0.6 K/mm3 (0.0-0.8); Monocytes % (Auto) 10.5 % (0.0-7.3); Platelet Count 214 K/mm3 (140-440); Red Cell Distribution Width 18.4 % (13.2-15.2)
[2018-08-14 16:47] LABS: INR 1.41 (0.87-1.13)
[2018-08-14 16:48] LABS: Partial Thromboplastin Time 37.6 Sec. (24.2-36.6)
[2018-08-14 16:52] LABS: Albumin 3.5 g/dL (3.9-5); Calcium 8.2 mg/dL (8.4-10.2)
[2018-08-14] MEDS: HumuLIN R SUB-Q SCH (19:10)
[2018-08-14] MEDS: SODIUM CHLORIDE FLUSH SYRINGE 10 ML IV SCH (22:00)
--- NOTE | 2018-08-14 23:01 | History and Physical Report ---
History of Present Illness Date of examination: 08/14/18 Date of admission: 08/14/18 15:36 Chief complaint: Blood in the Urine Weakness History of present illness: 72 year old male brought to the pffice by family friend with complaint of blood in the urine on and off for the past four weeks .Patient stated that initially the urine had just tinge of redness but over the past few days ,his urine has been mostly blood . patient denied any associated urinary frequency and no burning with urination .Patient denied fever or chills but stated ongoing progressive weakness . Patient stated that he has not seek any treatment for the complaint because his has been busy and not able to bring him to the office . 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 Pateint also on treatment for Type 2 Diabetes and hypertension both of which he claimed are well controlled on current regimen . Patient was evaluated in the office and urine evaluation showed gross hematuria sundeep now being admitted for further evaluation and Urological workup . Past History Past Medical History: anemia, cancer, diabetes, dialysis, ESRD, heart failure, hypertension, hyperlipidemia, renal failure Past Surgical History: bowel surgery Social history: Medications and Allergies Allergies Allergy/AdvReac Type Severity Reaction Status Date / Time No Known Allergies Allergy Unverified 04/18/15 19:25 Home Medications Medication Instructions Recorded Confirmed Last Taken Type ALBUTEROL NEB's [Proventil 0.083% 2.5 mg IH Q6HRT PRN nebu 02/03/18 08/14/18 Unknown Rx NEBS] Isosorb Dinit/Hydralazine [Bidil 1 each PO Q8HR tablet 02/03/18 08/14/18 Rx 20/37.5MG] cloNIDine [Catapres] 0.2 mg PO TID tablet 02/03/18 08/14/18 08/13/18 Rx Active Meds: Active Medications Dextrose (D50w (25gm) Syringe) 50 ml IV PRN PRN PRN Reason: Hypoglycemia Insulin Human Regular (Humulin R) 0 units SUB-Q [facility]; Protocol Last Admin: 08/14/18 19:10 Dose: Not Given Sodium Chloride (Sodium Chloride Flush Syringe 10 Ml) 10 ml IV BID LUCHO Sodium Chloride (Sodium Chloride Flush Syringe 10 Ml) 10 ml IV PRN PRN PRN Reason: LINE FLUSH Review of Systems Constitutional: weight loss, anorexia, weakness, malaise, lethargy Cardiovascular: shortness of breath, dyspnea on exertion, high blood pressure, decreased exercise tolerance Respiratory: shortness of breath Gastrointestinal: loss of appetite Genitourinary Male: hematuria Endocrine: weight change Exam - Constitutional Vitals: Temp Pulse Resp BP Pulse Ox 97.9 F 78 20 158/91 97 08/14/18 16:53 08/14/18 16:53 08/14/18 16:53 08/14/18 16:53 08/14/18 16:53 General appearance: Present: no acute distress - EENT Eyes: Present: PERRL ENT: hearing intact - Neck Neck: Present: supple, normal ROM - Respiratory Respiratory effort: normal Respiratory: bilateral: CTA - Cardiovascular Rhythm: regular Heart Sounds: Present: S1 & S2 - Extremities Extremities: no ischemia, pulses intact, pulses symmetrical, No edema, normal temperature, normal color - Abdominal General gastrointestinal: Present: soft, non-tender, other (colostomy in place ) - Rectal Rectal Exam: deferred - Integumentary Integumentary: Present: warm - Musculoskeletal Musculoskeletal: generalized weakness - Psychiatric Psychiatric: appropriate mood/affect - Neurologic Neurologic: CNII-XII intact Results - Labs CBC & Chem 7: 08/15/18 04:43 08/14/18 16:10 Labs: Abnormal lab results 08/14/18 08/14/18 08/14/18 Range/Units 16:10 16:10 16:10 Hgb 10.5 L (11.8-15.2) gm/dl Hct 32.8 L (35.5-45.6) % MCV 82 L (84-94) fl MCH 26 L (28-32) pg RDW 18.4 H (13.2-15.2) % [place] % (Auto) 10.5 H (0.0-7.3) % Eos % (Auto) 11.6 H (0.0-4.3) % Baso % (Auto) 1.9 H (0.0-1.8) % Lymph # 0.9 L (1.2-5.4) K/mm3 Eos # 0.7 H (0.0-0.4) K/mm3 PT 17.8 H (12.2-14.9) Sec. INR 1.41 H (0.87-1.13) APTT 37.6 H (24.2-36.6) Sec. Sodium 135 L (137-145) mmol/L Chloride 94.2 L (98-107) mmol/L BUN 24 H (9-20) mg/dL Creatinine 4.3 H (0.8-1.5) mg/dL Glucose 116 H (75-100) mg/dL Calcium 8.2 L (8.4-10.2) mg/dL Total Protein 8.3 H (6.3-8.2) g/dL Albumin 3.5 L (3.9-5) g/dL Assessment and Plan - Patient Problems (1) Hematuria Current Visit: Yes Status: Acute Qualifiers: Hematuria type: gross Qualified Code(s): R31.0 - Gross hematuria Plan to address problem: Monitor hemoglobin, blood pressure noted is stable, awaiting urology evaluation no obvious sign of infection. 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 Receiving heparin during hemodialysis this would need to be discontinued per nephrology evaluation (2) Anemia Current Visit: No Status: Acute Qualifiers: Anemia type: unspecified type Qualified Code(s): D64.9 - Anemia, unspecified Plan to address problem: Monitor hemoglobin (3) ESRD needing dialysis Current Visit: No Status: Chronic Plan to address problem: Patient underwent hemodialysis and nephrology consults pending patient to have hemodialysis today (4) Hyperglycemia due to type 2 diabetes mellitus Current Visit: No Status: Chronic Qualifiers: Diabetes mellitus adjunct faculty for medical terminology insulin use: unspecified adjunct faculty for medical terminology insulin use status Qualified Code(s): E11.65 - Type 2 diabetes mellitus with hyperglycemia Plan to address problem: Start him on longer acting. Insulin Levemir with additional sliding scale regular insulin coverage monitor blood sugar
[2018-08-15] MEDS: HumuLIN R SUB-Q SCH ×4 (01:15→22:00)
[2018-08-15 05:50] LABS: Basophils # (Auto) 0.1 K/mm3 (0.0-0.1); Basophils % (Auto) 2.1 % (0.0-1.8); Eosinophils # (Auto) 0.9 K/mm3 (0.0-0.4); Hematocrit 32.6 % (35.5-45.6); Hemoglobin 10.3 gm/dl (11.8-15.2); Lymphocytes # (Auto) 0.8 K/mm3 (1.2-5.4); Lymphocytes % (Auto) 12.3 % (13.4-35.0); Mean Corpuscular HGB Conc 31 % (32-34); Mean Corpuscular Volume 82 fl (84-94); Monocytes # (Auto) 0.9 K/mm3 (0.0-0.8); Monocytes % (Auto) 12.9 % (0.0-7.3); Platelet Count 217 K/mm3 (140-440); Red Blood Count 3.96 M/mm3 (3.65-5.03); Red Cell Distribution Width 18.8 % (13.2-15.2)
[2018-08-15 05:57] LABS: Mean Corpuscular Hemoglobin 26 pg (28-32)
--- NOTE | 2018-08-15 09:28 | Progress Note ---
Assessment and Plan - Patient Problems (1) Hematuria Current Visit: Yes Status: Acute Qualifiers: Hematuria type: gross Qualified Code(s): R31.0 - Gross hematuria Plan to address problem: Monitor hemoglobin, blood pressure noted is stable, awaiting urology evaluation no obvious sign of infection. 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 Receiving heparin during hemodialysis this would need to be discontinued per nephrology evaluation (2) Anemia Current Visit: No Status: Acute Qualifiers: Anemia type: unspecified type Qualified Code(s): D64.9 - Anemia, unspecified Plan to address problem: Monitor hemoglobin (3) ESRD needing dialysis Current Visit: No Status: Chronic Plan to address problem: Patient underwent hemodialysis and nephrology consults pending patient to have hemodialysis today (4) Hyperglycemia due to type 2 diabetes mellitus Current Visit: No Status: Chronic Qualifiers: Diabetes mellitus senior living insulin use: unspecified senior living insulin use status Qualified Code(s): E11.65 - Type 2 diabetes mellitus with hyperglycemia Plan to address problem: Start him on longer acting. Insulin Levemir with additional sliding scale regular insulin coverage monitor blood sugar Subjective Date of service: 08/15/18 Principal diagnosis: hematuria, ESRD of disease on hemodialysis Interval history: Patient seen and examined chart reviewed, patient has ongoing hematuria, no fever noted. No chills. No shortness of breath. Patient denies any new complaints blood pressure stable Objective - Constitutional Vitals: Vital Signs - 12hr 08/14/18 08/14/18 08/15/18 22:00 23:23 06:22 Temperature 98.2 F 97.7 F Pulse Rate 81 87 Respiratory 20 17 17 Rate Blood Pressure 154/76 180/98 O2 Sat by Pulse 100 100 92 Oximetry General appearance: Present: no acute distress - Neck Neck: supple, normal ROM - Respiratory Respiratory effort: normal Respiratory: bilateral: CTA - Cardiovascular Rhythm: regular Heart Sounds: Present: S1 & S2 Extremities: no ischemia, normal temperature - Gastrointestinal General gastrointestinal: Present: soft, non-tender Rectal Exam: deferred - Genitourinary Male genitourinary: normal - Integumentary Integumentary: warm, dry - Musculoskeletal Musculoskeletal: strength equal bilaterally, generalized weakness - Neurologic Neurologic: CNII-XII intact - Psychiatric Psychiatric: appropriate mood/affect - Labs CBC & Chem 7: 08/15/18 04:43 08/14/18 16:10 Labs: Abnormal lab results 08/14/18 08/14/18 08/14/18 Range/Units 16:10 16:10 16:10 Hgb 10.5 L (11.8-15.2) gm/dl Hct 32.8 L (35.5-45.6) % MCV 82 L (84-94) fl MCH 26 L (28-32) pg MCHC (32-34) % RDW 18.4 H (13.2-15.2) % Lymph % (Auto) (13.4-35.0) % [place] % (Auto) 10.5 H (0.0-7.3) % Eos % (Auto) 11.6 H (0.0-4.3) % Baso % (Auto) 1.9 H (0.0-1.8) % Lymph # 0.9 L (1.2-5.4) K/mm3 [place] # (0.0-0.8) K/mm3 Eos # 0.7 H (0.0-0.4) K/mm3 PT 17.8 H (12.2-14.9) Sec. INR 1.41 H (0.87-1.13) APTT 37.6 H (24.2-36.6) Sec. Sodium 135 L (137-145) mmol/L Chloride 94.2 L (98-107) mmol/L BUN 24 H (9-20) mg/dL Creatinine 4.3 H (0.8-1.5) mg/dL Glucose 116 H (75-100) mg/dL POC Glucose (70-105) Calcium 8.2 L (8.4-10.2) mg/dL Total Protein 8.3 H (6.3-8.2) g/dL Albumin 3.5 L (3.9-5) g/dL 08/15/18 08/15/18 08/15/18 Range/Units 01:15 04:43 07:41 Hgb 10.3 L (11.8-15.2) gm/dl Hct 32.6 L (35.5-45.6) % MCV 82 L (84-94) fl MCH 26 L (28-32) pg MCHC 31 L (32-34) % RDW 18.8 H (13.2-15.2) % Lymph % (Auto) 12.3 L (13.4-35.0) % [place] % (Auto) 12.9 H (0.0-7.3) % Eos % (Auto) 14.0 H (0.0-4.3) % Baso % (Auto) 2.1 H (0.0-1.8) % Lymph # 0.8 L (1.2-5.4) K/mm3 [place] # 0.9 H (0.0-0.8) K/mm3 Eos # 0.9 H (0.0-0.4) K/mm3 PT (12.2-14.9) Sec. INR (0.87-1.13) APTT (24.2-36.6) Sec. Sodium (137-145) mmol/L Chloride (98-107) mmol/L BUN (9-20) mg/dL Creatinine (0.8-1.5) mg/dL Glucose (75-100) mg/dL POC Glucose 140 H 106 H (70-105) Calcium (8.4-10.2) mg/dL Total Protein (6.3-8.2) g/dL Albumin (3.9-5) g/dL
[2018-08-15] MEDS ORDERED: PROVENTIL IH PRN (09:32)
--- NOTE | 2018-08-15 10:10 | Consultation ---
History of Present Illness - Reason for Consult Consult date: 08/15/18 end stage renal disease Requesting physician: LORI CORONA - History of Present Illness 72 year old male brought to the pffice by family friend with complaint of blood in the urine on and off for the past four weeks .Patient stated that initially the urine had just tinge of redness but over the past few days ,his urine has been mostly blood . patient denied any associated urinary frequency and no burning with urination .Patient denied fever or chills but stated ongoing progressive weakness . Patient stated that he has not seek any treatment for the complaint because his has been busy and not able to bring him to the office . Patient is currently on treatment for end stage renal disease and on hemodialysis three times weekly (,, Saturday )and last dialysis was yesterday ( [facility]ician Dr Redding at [facility] [place] ) Patient is status post kidney transplant and transplant rejection last January after which he was restarted on Hemodialysis . Pateint also on treatment for Type 2 Diabetes and hypertension both of which he claimed are well controlled on current regimen . Patient was evaluated in the office and urine evaluation showed gross hematuria and now being admitted for further evaluation and Urological workup . Past History Past Medical History: anemia, cancer, diabetes, dialysis, ESRD, heart failure, hypertension, hyperlipidemia, renal failure Past Surgical History: bowel surgery Social history: Review of Systems Constitutional: weight loss, anorexia, weakness, malaise, lethargy Cardiovascular: shortness of breath, dyspnea on exertion, high blood pressure, decreased exercise tolerance Respiratory: shortness of breath Gastrointestinal: loss of appetite Genitourinary Male: hematuria Endocrine: weight change Past History Past Medical History: anemia, cancer, diabetes, dialysis, ESRD, heart failure, hypertension, hyperlipidemia, renal failure Past Surgical History: bowel surgery Social history: Medications and Allergies Allergies Allergy/AdvReac Type Severity Reaction Status Date / Time No Known Allergies Allergy Unverified 04/18/15 19:25 Home Medications Medication Instructions Recorded Confirmed Last Taken Type ALBUTEROL NEB's [Proventil 0.083% 2.5 mg IH Q6HRT PRN nebu 02/03/18 08/14/18 Unknown Rx NEBS] Isosorb Dinit/Hydralazine [Bidil 1 each PO Q8HR tablet 02/03/18 08/14/18 Rx 20/37.5MG] cloNIDine [Catapres] 0.2 mg PO TID tablet 02/03/18 08/14/18 08/13/18 Rx Active Meds: Active Medications Albuterol (Proventil) 2.5 mg IH Q6HRT PRN PRN Reason: Shortness Of Breath Clonidine HCl (Catapres) 0.2 mg PO TID LUCHO Dextrose (D50w (25gm) Syringe) 50 ml IV PRN PRN PRN Reason: Hypoglycemia Insulin Glargine (Lantus) 10 units SUB-Q QHS [facility] Insulin Human Regular (Humulin R) 0 units SUB-Q ACHS [facility]; Protocol Last Admin: 08/15/18 01:15 Dose: Not Given Isosorbide Dinitrate/Hydralazine (Bidil 20/37.5mg) 1 each PO Q8HR [facility] Sodium Chloride (Sodium Chloride Flush Syringe 10 Ml) 10 ml IV BID LUCHO Last Admin: 08/14/18 22:00 Dose: 10 ml Sodium Chloride (Sodium Chloride Flush Syringe 10 Ml) 10 ml IV PRN PRN PRN Reason: LINE FLUSH Exam - Vital Signs Vital signs: Vital Signs Temp Pulse Resp BP Pulse Ox 97.9 F 78 20 158/91 97 08/14/18 16:53 08/14/18 16:53 08/14/18 16:53 08/14/18 16:53 08/14/18 16:53 - Physical Exam Narrative exam: General appearance: Present: no acute distress - EENT Eyes: Present: PERRL ENT: hearing intact - Neck Neck: Present: supple, normal ROM - Respiratory Respiratory effort: normal Respiratory: bilateral: CTA - Cardiovascular Rhythm: regular Heart Sounds: Present: S1 & S2 - Extremities Extremities: no ischemia, pulses intact, pulses symmetrical, No edema, normal temperature, normal color - Abdominal General gastrointestinal: Present: soft, non-tender, other (colostomy in place ) - Rectal Rectal Exam: deferred - Integumentary Integumentary: Present: warm - Musculoskeletal Musculoskeletal: generalized weakness - Psychiatric Psychiatric: appropriate mood/affect - Neurologic Neurologic: CNII-XII intact Results - Lab Results 08/15/18 04:43 08/14/18 16:10 Most recent lab results Calcium 8.2 mg/dL (8.4-10.2) L 08/14/18 16:10 Assessment and Plan Impression: * ESRD * gross hematuria * HTN * anemia in ESRD Plan: * HD q MWF * no heparin with HD * urology to evalated hematuria * strict i/os * uf as tolerated with hd * cbc/lytes prn
[2018-08-15] MEDS ORDERED: PROCRIT IV PRN (10:12)
[2018-08-15] MEDS ORDERED: NACL 0.9% 100 ML IV PRN (10:12)
--- NOTE | 2018-08-15 10:54 | Cat Scan Report ---
CT abdomen and pelvis without contrast: Gross hematuria; failed transplant. Transverse images are obtained from lower chest to the ischium with coronal and sagittal 2-D reformatted images. No priors. The lung markings the bases are coarse. Coronary vascular calcification noted. There is pneumobilia. The pancreas is difficult to assess but has moderate fatty change. Small [place] kidneys bilaterally with a 2.5 cm cyst on the right kidney. Small nonobstructing calculi in both kidneys. Transplanted kidney in the right pelvis with no evidence of obstruction. The bladder is difficult to clearly distinguish but appears quite contracted. No evidence of calculus. Extensive fecal and gas throughout the colon. Small bowel evaluation quite limited due to lack of contrast but there is no obvious dilatation. Extensive vascular calcification in the abdominal aorta and branches. No evidence of aneurysm identified. The bones are generally demineralized with scattered cysts along the articular margins of the fourth and fifth vertebral bodies and in the posterior processes. Almost collapsed L4-5 interspace. Impressions: 1. Pneumobilia possibly from prior anastomotic surgery. Correlate with history. 2. Small [place] kidneys with transplant and right lower quadrant. Failed by history. 3. Extensive fecal matter throughout the colon.
[2018-08-15] MEDS ORDERED: AFLURIA QUAD 2018-2019 SYRINGE IM ONE (12:00)
[2018-08-15] MEDS: BIDIL 20/37.5MG PO SCH ×2 (12:35→21:49)
[2018-08-15] MEDS: SODIUM CHLORIDE FLUSH SYRINGE 10 ML IV SCH ×2 (12:35→21:51)
[2018-08-15] MEDS: CATAPRES PO SCH ×2 (12:36→21:49)
--- NOTE | 2018-08-15 12:47 | Consultation ---
History of Present Illness - Reason for Consult Consult date: 08/15/18 - History of Present Illness 2 year old male brought to the pffice by family friend with complaint of blood in the urine on and off for the past four weeks .Patient stated that initially the urine had just tinge of redness but over the past few days ,his urine has been mostly blood . patient denied any associated urinary frequency and no burning with urination .Patient denied fever or chills but stated ongoing progressive weakness . Patient stated that he has not seek any treatment for the complaint because his has been busy and not able to bring him to the office . Patient is currently on treatment for end stage renal disease and on hemodialysis three times weekly (,, Saturday )and last dialysis was yesterday ( [facility] [place] [facility] [place] Patient is status post kidney transplant and transplant rejection last January after which he was restarted on Hemodialysis . Pateint also on treatment for Type 2 Diabetes and hypertension both of which he claimed are well controlled on current regimen . pt states had cysto 1-2 yrs ago as part of transplant work up will see if we can get records from Dr. Alvarez [facility] today (08-15-18)---small [place] kidneys, + collapsed L4-5 A/P gross hematuria will review transplant records may need cysto Past History Past Medical History: anemia, cancer, diabetes, dialysis, ESRD, heart failure, hypertension, hyperlipidemia, renal failure Past Surgical History: bowel surgery Social history: Medications and Allergies Allergies Allergy/AdvReac Type Severity Reaction Status Date / Time No Known Allergies Allergy Unverified 04/18/15 19:25 Home Medications Medication Instructions Recorded Confirmed Last Taken Type ALBUTEROL NEB's [Proventil 0.083% 2.5 mg IH Q6HRT PRN nebu 02/03/18 08/14/18 Unknown Rx NEBS] Isosorb Dinit/Hydralazine [Bidil 1 each PO Q8HR tablet 02/03/18 08/14/18 Rx 20/37.5MG] cloNIDine [Catapres] 0.2 mg PO TID tablet 02/03/18 08/14/18 08/13/18 Rx Active Meds: Active Medications Albuterol (Proventil) 2.5 mg IH Q6HRT PRN PRN Reason: Shortness Of Breath Clonidine HCl (Catapres) 0.2 mg PO TID [facility] Last Admin: 08/15/18 12:36 Dose: 0.2 mg Dextrose (D50w (25gm) Syringe) 50 ml IV PRN PRN PRN Reason: Hypoglycemia Epoetin [place] (Procrit) 10,000 unit IV VEDA PRN PRN Reason: hemodialysis Sodium Chloride (Nacl 0.9%) 100 mls @ 999 mls/hr IV VEDA PRN PRN Reason: Hypotension Ceftriaxone Sodium (Rocephin/Ns 1 Gm/50 Ml) 1 gm in 50 mls @ 100 mls/hr IV Q24HR LUCHO; Protocol Insulin Glargine (Lantus) 10 units SUB-Q QHS LUCHO Insulin Human Regular (Humulin R) 0 units SUB-Q ACHS LUCHO; Protocol Last Admin: 08/15/18 11:30 Dose: Not Given Isosorbide Dinitrate/Hydralazine (Bidil 20/37.5mg) 1 each PO Q8HR [facility] Last Admin: 08/15/18 12:35 Dose: 1 each Sodium Chloride (Sodium Chloride Flush Syringe 10 Ml) 10 ml IV BID [facility] Last Admin: 08/15/18 12:35 Dose: 10 ml Sodium Chloride (Sodium Chloride Flush Syringe 10 Ml) 10 ml IV PRN PRN PRN Reason: LINE FLUSH Exam - Constitutional Vitals: Temp Pulse Resp BP Pulse Ox 97.8 F 78 18 166/83 96 08/15/18 12:10 08/15/18 12:10 08/15/18 12:10 08/15/18 12:10 08/15/18 12:10 Results - Labs CBC & Chem 7: 08/15/18 04:43 08/14/18 16:10 Labs: Abnormal lab results 08/14/18 08/14/18 08/14/18 Range/Units 16:10 16:10 16:10 Hgb 10.5 L (11.8-15.2) gm/dl Hct 32.8 L (35.5-45.6) % MCV 82 L (84-94) fl MCH 26 L (28-32) pg MCHC (32-34) % RDW 18.4 H (13.2-15.2) % Lymph % (Auto) (13.4-35.0) % [place] % (Auto) 10.5 H (0.0-7.3) % Eos % (Auto) 11.6 H (0.0-4.3) % Baso % (Auto) 1.9 H (0.0-1.8) % Lymph # 0.9 L (1.2-5.4) K/mm3 [place] # (0.0-0.8) K/mm3 Eos # 0.7 H (0.0-0.4) K/mm3 PT 17.8 H (12.2-14.9) Sec. INR 1.41 H (0.87-1.13) APTT 37.6 H (24.2-36.6) Sec. Sodium 135 L (137-145) mmol/L Chloride 94.2 L (98-107) mmol/L BUN 24 H (9-20) mg/dL Creatinine 4.3 H (0.8-1.5) mg/dL Glucose 116 H (75-100) mg/dL POC Glucose (70-105) Calcium 8.2 L (8.4-10.2) mg/dL Total Protein 8.3 H (6.3-8.2) g/dL Albumin 3.5 L (3.9-5) g/dL 08/15/18 08/15/18 08/15/18 Range/Units 01:15 04:43 07:41 Hgb 10.3 L (11.8-15.2) gm/dl Hct 32.6 L (35.5-45.6) % MCV 82 L (84-94) fl MCH 26 L (28-32) pg MCHC 31 L (32-34) % RDW 18.8 H (13.2-15.2) % Lymph % (Auto) 12.3 L (13.4-35.0) % [place] % (Auto) 12.9 H (0.0-7.3) % Eos % (Auto) 14.0 H (0.0-4.3) % Baso % (Auto) 2.1 H (0.0-1.8) % Lymph # 0.8 L (1.2-5.4) K/mm3 [place] # 0.9 H (0.0-0.8) K/mm3 Eos # 0.9 H (0.0-0.4) K/mm3 PT (12.2-14.9) Sec. INR (0.87-1.13) APTT (24.2-36.6) Sec. Sodium (137-145) mmol/L Chloride (98-107) mmol/L BUN (9-20) mg/dL Creatinine (0.8-1.5) mg/dL Glucose (75-100) mg/dL POC Glucose 140 H 106 H (70-105) Calcium (8.4-10.2) mg/dL Total Protein (6.3-8.2) g/dL Albumin (3.9-5) g/dL
--- NOTE | 2018-08-15 15:04 | Ultrasound Report ---
Renal ultrasound: Renal failure. Transplant. The [place] right kidney is markedly echogenic. The inferior contour is difficult to assess for size. It may be as long as 8 cm. No calculus, mass, hydronephrosis. The [place] left kidney is not identified. The transplanted kidney is in the right lower quadrant measuring 11.5 cm in length. It is generally echogenic. No hydronephrosis and no renal mass identified. No perinephric stranding. Color imaging demonstrates vascular flow. Impressions: Abnormal transplant kidney echogenicity consistent with failure. No obstruction identified.
[2018-08-15] MEDS: ROCEPHIN/NS 1 GM/50 ML 1 GM/50 ML BAG IV SCH (15:18)
[2018-08-15] MEDS ORDERED: NACL 0.9 (PRIMING MACHINE ONLY DIALYSIS) MC ONE (20:20)
[2018-08-15] MEDS: LANTUS SUB-Q SCH (21:47)
[2018-08-16 05:42] LABS: BUN/Creatinine Ratio 5; Blood Urea Nitrogen 19 mg/dL (9-20); Calcium 8.1 mg/dL (8.4-10.2); Hemolysis Index 259
[2018-08-16 05:51] LABS: Albumin 3.4 g/dL (3.9-5); Calcium 8.1 mg/dL (8.4-10.2)
[2018-08-16] MEDS: BIDIL 20/37.5MG PO SCH ×3 (05:54→22:50)
[2018-08-16 07:24] LABS: Hematocrit 31.5 % (35.5-45.6); Hemoglobin 10.1 gm/dl (11.8-15.2); Red Blood Count 3.85 M/mm3 (3.65-5.03)
[2018-08-16 07:25] LABS: Basophils % (Auto) 1.7 % (0.0-1.8); Eosinophils % (Auto) 15.1 % (0.0-4.3); Lymphocytes % (Auto) 9.2 % (13.4-35.0); Mean Corpuscular HGB Conc 32 % (32-34); Mean Corpuscular Hemoglobin 26 pg (28-32); Mean Corpuscular Volume 82 fl (84-94); Monocytes % (Auto) 12.4 % (0.0-7.3); Platelet Count 190 K/mm3 (140-440)
[2018-08-16 07:26] LABS: Basophils # (Auto) 0.1 K/mm3 (0.0-0.1); Eosinophils # (Auto) 0.9 K/mm3 (0.0-0.4); Lymphocytes # (Auto) 0.6 K/mm3 (1.2-5.4); Monocytes # (Auto) 0.7 K/mm3 (0.0-0.8)
[2018-08-16] MEDS: HumuLIN R SUB-Q SCH ×5 (08:05→23:20)
[2018-08-16] MEDS: CATAPRES PO SCH ×3 (08:40→22:56)
[2018-08-16] MEDS: ROCEPHIN/NS 1 GM/50 ML 1 GM/50 ML BAG IV SCH (09:45)
[2018-08-16] MEDS: SODIUM CHLORIDE FLUSH SYRINGE 10 ML IV SCH ×2 (10:16→23:21)
--- NOTE | 2018-08-16 12:02 | Progress Note ---
Assessment and Plan Impression: * ESRD * gross hematuria * HTN * anemia in ESRD Plan: * HD q TTHSAT * no heparin with HD * urology to evalated hematuria * strict i/os * uf as tolerated with hd * cbc/lytes prn Subjective Date of service: 08/16/18 Principal diagnosis: hematuria, ESRD of disease on hemodialysis Interval history: resting well in bed today Objective - Exam Narrative Exam: General appearance: Present: no acute distress - EENT Eyes: Present: PERRL ENT: hearing intact - Neck Neck: Present: supple, normal ROM - Respiratory Respiratory effort: normal Respiratory: bilateral: CTA - Cardiovascular Rhythm: regular Heart Sounds: Present: S1 & S2 - Extremities Extremities: no ischemia, pulses intact, pulses symmetrical, No edema, normal temperature, normal color - Abdominal General gastrointestinal: Present: soft, non-tender, other (colostomy in place ) - Rectal Rectal Exam: deferred - Integumentary Integumentary: Present: warm - Musculoskeletal Musculoskeletal: generalized weakness - Psychiatric Psychiatric: appropriate mood/affect - Neurologic Neurologic: CNII-XII intact - Vital Signs Vital signs: Vital Signs - 12hr 08/16/18 08/16/18 08/16/18 05:54 08:32 08:40 Temperature 97.8 F Pulse Rate 75 80 78 Respiratory 18 Rate Respiratory Rate [Chest] Blood Pressure 158/85 147/75 147/75 O2 Sat by Pulse 96 Oximetry 08/16/18 10:00 Temperature Pulse Rate Respiratory 18 Rate Respiratory 18 Rate [Chest] Blood Pressure O2 Sat by Pulse Oximetry - Lab 08/16/18 06:39 08/16/18 04:25 Most recent lab results Calcium 8.1 mg/dL (8.4-10.2) L 08/16/18 04:25
--- NOTE | 2018-08-16 12:05 | Progress Note ---
Assessment and Plan - Gross Hematuria contiue to monitor. For cycto per Urology - ESRD on HD on F Nephrology folowing - Anemia of chronic disease From ESRD and hematuria - Diabetes mellitus continue with SSI Consistent carbohydrate diet - DVT PPx with SCD only b/c hematuria Subjective Date of service: 08/16/18 Principal diagnosis: hematuria, ESRD of disease on hemodialysis Interval history: Still having hematuria. No fever Objective - Exam Narrative Exam: Constitutional: Well-nourished well-developed. In no distress Head: Normocephalic atraumatic Eyes: Pupils are equal round and reactive to light Nose: No enlarged turbinates, no septal deviation. Mouth: Moist mucous membranes. Neck: Supple no thyromegaly. No bruit. No JVD Heart: Regular rate and rhythm, S1-S2 abnormal. No rubs murmurs or gallop Lungs: Clear to auscultation bilaterally no rales or rhonchi Abdomen: Soft, nontender. Bowel sound are present. Extremities: No edema no cyanosis and no clubbing. Neuro: Alert oriented Oriented x3. No focal sensory or motor deficit. Skin: No rashes no hyperemic spots Psychiatry: Euthymic. Calm. - Constitutional Vitals: Vital Signs - 12hr 08/16/18 08/16/18 08/16/18 05:54 08:32 08:40 Temperature 97.8 F Pulse Rate 75 80 78 Respiratory 18 Rate Respiratory Rate [Chest] Blood Pressure 158/85 147/75 147/75 O2 Sat by Pulse 96 Oximetry 08/16/18 10:00 Temperature Pulse Rate Respiratory 18 Rate Respiratory 18 Rate [Chest] Blood Pressure O2 Sat by Pulse Oximetry - Labs CBC & Chem 7: 08/16/18 06:39 08/16/18 04:25 Labs: Abnormal lab results 08/15/18 08/15/18 08/16/18 Range/Units 12:12 21:39 04:25 Hgb (11.8-15.2) gm/dl Hct (35.5-45.6) % MCV (84-94) fl MCH (28-32) pg RDW (13.2-15.2) % Lymph % (Auto) (13.4-35.0) % [place] % (Auto) (0.0-7.3) % Eos % (Auto) (0.0-4.3) % Lymph # (1.2-5.4) K/mm3 Eos # (0.0-0.4) K/mm3 Sodium 135 L (137-145) mmol/L Chloride 94.9 L (98-107) mmol/L Creatinine 4.0 H (0.8-1.5) mg/dL POC Glucose 134 H 165 H (70-105) Calcium 8.1 L (8.4-10.2) mg/dL Albumin (3.9-5) g/dL 08/16/18 08/16/18 Range/Units 04:25 06:39 Hgb 10.1 L (11.8-15.2) gm/dl Hct 31.5 L (35.5-45.6) % MCV 82 L (84-94) fl MCH 26 L (28-32) pg RDW 19.0 H (13.2-15.2) % Lymph % (Auto) 9.2 L (13.4-35.0) % [place] % (Auto) 12.4 H (0.0-7.3) % Eos % (Auto) 15.1 H (0.0-4.3) % Lymph # 0.6 L (1.2-5.4) K/mm3 Eos # 0.9 H (0.0-0.4) K/mm3 Sodium 136 L (137-145) mmol/L Chloride 95.8 L (98-107) mmol/L Creatinine 3.8 H (0.8-1.5) mg/dL POC Glucose (70-105) Calcium 8.1 L (8.4-10.2) mg/dL Albumin 3.4 L (3.9-5) g/dL
[2018-08-16] MEDS ORDERED: NACL 0.9 (PRIMING MACHINE ONLY DIALYSIS) MC ONE (13:55)
[2018-08-16] MEDS: LANTUS SUB-Q SCH (22:51)
[2018-08-17 00:03] LABS: Creatine Kinase MB 2.5 ng/mL (0.0-4.0)
[2018-08-17] MEDS: BIDIL 20/37.5MG PO SCH ×3 (06:00→22:32)
[2018-08-17] MEDS: HumuLIN R SUB-Q SCH ×4 (07:44→22:32)
[2018-08-17 08:34] LABS: Albumin 3.5 g/dL (3.9-5); Calcium 8.1 mg/dL (8.4-10.2)
--- NOTE | 2018-08-17 09:44 | Progress Note ---
Assessment and Plan Impression: * ESRD * gross hematuria * HTN * anemia in ESRD Plan: * HD q TTHSAT * no heparin with HD * urology following, cysto in am * strict i/os * bp control--will amend medications * uf as tolerated with hd * cbc/lytes prn Subjective Date of service: 08/17/18 Principal diagnosis: hematuria, ESRD of disease on hemodialysis Interval history: resting well in bed today Objective - Exam Narrative Exam: General appearance: Present: no acute distress - EENT Eyes: Present: PERRL ENT: hearing intact - Neck Neck: Present: supple, normal ROM - Respiratory Respiratory effort: normal Respiratory: bilateral: CTA - Cardiovascular Rhythm: regular Heart Sounds: Present: S1 & S2 - Extremities Extremities: no ischemia, pulses intact, pulses symmetrical, No edema, normal temperature, normal color - Abdominal General gastrointestinal: Present: soft, non-tender, other (colostomy in place ) - Rectal Rectal Exam: deferred - Integumentary Integumentary: Present: warm - Musculoskeletal Musculoskeletal: generalized weakness - Psychiatric Psychiatric: appropriate mood/affect - Neurologic Neurologic: CNII-XII intact - Vital Signs Vital signs: Vital Signs - 12hr 08/16/18 08/16/18 08/16/18 22:17 22:22 22:50 Temperature 97.8 F 97.8 F Pulse Rate 90 90 Respiratory 16 16 Rate Blood Pressure 141/79 122/74 122/74 O2 Sat by Pulse 95 Oximetry 08/16/18 08/17/18 08/17/18 22:56 05:32 06:00 Temperature 97.8 F Pulse Rate 90 77 83 Respiratory 20 Rate Blood Pressure 122/74 181/104 171/111 O2 Sat by Pulse 99 Oximetry - Lab 08/16/18 06:39 08/17/18 07:47 Most recent lab results Calcium 8.1 mg/dL (8.4-10.2) L 08/17/18 07:47
[2018-08-17] MEDS: ROCEPHIN/NS 1 GM/50 ML 1 GM/50 ML BAG IV SCH (11:25)
--- NOTE | 2018-08-17 12:39 | Progress Note ---
Assessment and Plan - Gross Hematuria continue to monitor. For cycto in am per Urology - ESRD on HD on TTH and Sat Nephrology following - Anemia of chronic disease From ESRD and hematuria - Diabetes mellitus continue with SSI Consistent carbohydrate diet - Hypertension BP control optimized - DVT PPx with SCD only b/c hematuria Subjective Date of service: 08/17/18 Principal diagnosis: hematuria, ESRD of disease on hemodialysis Interval history: Still having hematuria. No abdominal pain or fever. sitting up and having lunch Objective - Exam Narrative Exam: Constitutional: Well-nourished well-developed.In no distress Head: Normocephalic atraumatic Eyes: Pupils are equal round and reactive to light Nose: No enlarged turbinates, no septal deviation. Mouth: Moist mucous membranes. Neck: Supple no thyromegaly. No bruit. No JVD Heart: Regular rate and rhythm, S1-S2 abnormal. No rubs murmurs or gallop Lungs: Clear to auscultation bilaterally no rales or rhonchi Abdomen: Soft, nontender. Bowel sound are present. Extremities: No edema no cyanosis and no clubbing. Neuro: Alert oriented Oriented x3. No focal sensory or motor deficit. Skin: No rashes no hyperemic spots Psychiatry: Euthymic. Calm. - Constitutional Vitals: Vital Signs - 12hr 08/17/18 08/17/18 05:32 06:00 Temperature 97.8 F Pulse Rate 77 83 Respiratory 20 Rate Blood Pressure 181/104 171/111 O2 Sat by Pulse 99 Oximetry - Labs CBC & Chem 7: 08/16/18 06:39 08/17/18 07:47 Labs: Abnormal lab results 08/16/18 08/17/18 Range/Units 21:38 07:47 Sodium 135 L (137-145) mmol/L Chloride 92.5 L (98-107) mmol/L BUN 22 H (9-20) mg/dL Creatinine 3.5 H (0.8-1.5) mg/dL Glucose 60 L (75-100) mg/dL POC Glucose 157 H (70-105) Calcium 8.1 L (8.4-10.2) mg/dL ALT 6 L (7-56) units/L Albumin 3.5 L (3.9-5) g/dL
[2018-08-17] MEDS: COZAAR PO SCH (13:33)
[2018-08-17] MEDS: CATAPRES PO SCH ×3 (13:33→22:30)
[2018-08-17] MEDS: SODIUM CHLORIDE FLUSH SYRINGE 10 ML IV SCH (13:34)
[2018-08-17] MEDS: LANTUS SUB-Q SCH (22:33)
[2018-08-18 07:20] LABS: Albumin 3.4 g/dL (3.9-5)
[2018-08-18] MEDS: HumuLIN R SUB-Q SCH ×4 (07:30→21:47)
--- NOTE | 2018-08-18 08:33 | Progress Note ---
Assessment and Plan Impression: * ESRD * gross hematuria * HTN * anemia in ESRD Plan: * Continue HD q TTHSAT * He undergoes dialysis at [facility] under the care of Dr Mouna Cordon on TTS schedule * no heparin with HD * urology following, cysto scheduled for today * strict i/os * bp control--will amend medications * uf as tolerated with hd * cbc/lytes prn Subjective Date of service: 08/18/18 Principal diagnosis: hematuria, ESRD of disease on hemodialysis Interval history: patient is comfortable today . Denies SOB . Objective - Vital Signs Vital signs: Vital Signs - 12hr 08/17/18 08/17/18 08/17/18 22:30 22:32 22:58 Temperature 98.2 F Pulse Rate 75 Respiratory 16 Rate Blood Pressure 105/60 105/60 137/77 O2 Sat by Pulse 96 Oximetry 08/18/18 05:47 Temperature 98.4 F Pulse Rate 75 Respiratory 18 Rate Blood Pressure 166/84 O2 Sat by Pulse 97 Oximetry - General Appearance General appearance: well-developed, well-nourished, appears stated age EENT: PERRL, mucous membranes moist Neck: no JVD, no thyromegaly, no carotid bruit, supple Respiratory: Present: Clear to Ascultation Cardiology: regular, normal heart rate, S1S2, no murmurs Gastrointestinal: normal, normoactive bowel sounds Integumentary: no rash, other (AVF left UE . Good bruit and thrill ) - Lab 08/16/18 06:39 08/18/18 06:15 Most recent lab results Calcium 8.0 mg/dL (8.4-10.2) L 08/18/18 06:15
[2018-08-18] MEDS: SODIUM CHLORIDE FLUSH SYRINGE 10 ML IV SCH ×3 (11:37→21:59)
[2018-08-18] MEDS: ROCEPHIN/NS 1 GM/50 ML 1 GM/50 ML BAG IV SCH (11:39)
[2018-08-18] MEDS: CATAPRES PO SCH ×3 (11:39→21:54)
[2018-08-18] MEDS: BIDIL 20/37.5MG PO SCH ×3 (14:49→21:58)
[2018-08-18] MEDS: COZAAR PO SCH (14:50)
[2018-08-18] MEDS: LANTUS SUB-Q SCH (21:47)
[2018-08-19 05:45] LABS: Albumin 3.4 g/dL (3.9-5); Calcium 7.5 mg/dL (8.4-10.2)
[2018-08-19] MEDS: BIDIL 20/37.5MG PO SCH ×3 (06:00→22:05)
--- NOTE | 2018-08-19 08:36 | Progress Note ---
Assessment and Plan - Patient Problems (1) Hematuria Current Visit: Yes Status: Chronic Qualifiers: Hematuria type: gross Qualified Code(s): R31.0 - Gross hematuria Plan to address problem: Patient scheduled for cystoscopy possibly today. Patient currently nothing by mouth (2) Anemia Current Visit: No Status: Acute Qualifiers: Anemia type: due to chronic kidney disease Chronic kidney disease stage: on chronic dialysis Qualified Code(s): N18.6 - End stage renal disease; D63.1 - Anemia in chronic kidney disease; Z99.2 - Dependence on renal dialysis Plan to address problem: Monitor hemoglobin. 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 Insulin Levemir with additional sliding scale regular insulin coverage monitor blood sugar Subjective Date of service: 08/18/18 Principal diagnosis: hematuria, ESRD of disease on hemodialysis Interval history: Patient seen and examined charts reviewed, events over the weekend noted. Patient stated that he continues to have hematuria but denied any pain no fever no chills reported vitals stable Objective - Exam Narrative Exam: GENERAL: Patient is not in any acute distress HEENT: Mildly pale but not jaundiced and not cyanosed NECK: [No JVD, no thyroid enlargement and no lymphadenopathy.] CHEST/LUNGS: [Good air exchange bilaterally, no wheeze, no rales and no rhonchi. ] [No chest wall tenderness, percussion is normal, symmetrical chest wall.] HEART/CARDIOVASCULAR: Regular rate and rhythm. First and Second heart sounds only systolic murmur grade 3/6 in the mitral area ABDOMEN: Abdomen is flat soft active bowel sounds, colostomy in place and functional SKIN: [Warm and dry, no rash.] NEURO: [Awake, alert, oriented x3, speech normal. Power 5/5 in all the extremities.] EXTREMITIES: [No pedal edema, good peripheral pulses, no finger or toe clubbing. ] - Constitutional Vitals: Vital Signs - 12hr 08/18/18 08/18/18 08/18/18 21:52 21:53 21:54 Temperature 98.4 F Pulse Rate 76 77 77 Respiratory 18 Rate Respiratory Rate [Chest] Blood Pressure 138/68 138/68 O2 Sat by Pulse 96 96 Oximetry 08/18/18 08/19/18 08/19/18 22:00 00:17 05:49 Temperature 98.4 F 98.3 F Pulse Rate 78 81 Respiratory 16 16 Rate Respiratory 18 Rate [Chest] Blood Pressure 141/85 149/81 O2 Sat by Pulse 98 94 Oximetry - Labs CBC & Chem 7: 08/16/18 06:39 08/19/18 04:51 Labs: Abnormal lab results 08/18/18 08/18/18 08/18/18 Range/Units 11:28 16:42 21:26 Sodium (137-145) mmol/L Chloride (98-107) mmol/L BUN (9-20) mg/dL Creatinine (0.8-1.5) mg/dL Glucose (75-100) mg/dL POC Glucose 116 H 162 H 171 H (70-105) Calcium (8.4-10.2) mg/dL Albumin (3.9-5) g/dL 08/19/18 Range/Units 04:51 Sodium 132 L (137-145) mmol/L Chloride 92.7 L (98-107) mmol/L BUN 50 H (9-20) mg/dL Creatinine 6.3 H (0.8-1.5) mg/dL Glucose 106 H (75-100) mg/dL POC Glucose (70-105) Calcium 7.5 L (8.4-10.2) mg/dL Albumin 3.4 L (3.9-5) g/dL
--- NOTE | 2018-08-19 08:38 | Progress Note ---
Assessment and Plan - Patient Problems (1) Hematuria Current Visit: Yes Status: Chronic Qualifiers: Hematuria type: gross Qualified Code(s): R31.0 - Gross hematuria Plan to address problem: Cystoscopy scheduled for this morning. We'll contact Dr. Granda urologist to confirm and coordinate care with travel accommodations rater patient did not have hemodialysis yesterday (2) Anemia Current Visit: No Status: Acute Qualifiers: Anemia type: due to chronic kidney disease Chronic kidney disease stage: on chronic dialysis Qualified Code(s): N18.6 - End stage renal disease; D63.1 - Anemia in chronic kidney disease; Z99.2 - Dependence on renal dialysis Plan to address problem: Monitor hemoglobin. 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 Insulin Levemir with additional sliding scale regular insulin coverage monitor blood sugar Subjective Date of service: 08/19/18 Principal diagnosis: hematuria, ESRD of disease on hemodialysis Interval history: Patient seen and examined, denied any new complaints besides ongoing hematuria. Cystoscopy was not performed yesterday due to patient's knee was not on the list for the operating room. Patient now scheduled to have cystoscopy today, no fever reported patient denied any pain no shortness of breath Objective - Exam Narrative Exam: GENERAL: Patient is not in any acute distress HEENT: Mildly pale but not jaundiced and not cyanosed NECK: [No JVD, no thyroid enlargement and no lymphadenopathy.] CHEST/LUNGS: [Good air exchange bilaterally, no wheeze, no rales and no rhonchi. ] [No chest wall tenderness, percussion is normal, symmetrical chest wall.] HEART/CARDIOVASCULAR: Regular rate and rhythm. First and Second heart sounds only systolic murmur grade 3/6 in the mitral area ABDOMEN: Abdomen is flat soft active bowel sounds, colostomy in place and functional SKIN: [Warm and dry, no rash.] NEURO: [Awake, alert, oriented x3, speech normal. Power 5/5 in all the extremities.] EXTREMITIES: [No pedal edema, good peripheral pulses, no finger or toe clubbing. ] - Constitutional Vitals: Vital Signs - 12hr 08/18/18 08/18/18 08/18/18 21:52 21:53 21:54 Temperature 98.4 F Pulse Rate 76 77 77 Respiratory 18 Rate Respiratory Rate [Chest] Blood Pressure 138/68 138/68 O2 Sat by Pulse 96 96 Oximetry 08/18/18 08/19/18 08/19/18 22:00 00:17 05:49 Temperature 98.4 F 98.3 F Pulse Rate 78 81 Respiratory 16 16 Rate Respiratory 18 Rate [Chest] Blood Pressure 141/85 149/81 O2 Sat by Pulse 98 94 Oximetry - Labs CBC & Chem 7: 08/16/18 06:39 08/19/18 04:51 Labs: Abnormal lab results 08/18/18 08/18/18 08/18/18 Range/Units 11:28 16:42 21:26 Sodium (137-145) mmol/L Chloride (98-107) mmol/L BUN (9-20) mg/dL Creatinine (0.8-1.5) mg/dL Glucose (75-100) mg/dL POC Glucose 116 H 162 H 171 H (70-105) Calcium (8.4-10.2) mg/dL Albumin (3.9-5) g/dL 08/19/18 Range/Units 04:51 Sodium 132 L (137-145) mmol/L Chloride 92.7 L (98-107) mmol/L BUN 50 H (9-20) mg/dL Creatinine 6.3 H (0.8-1.5) mg/dL Glucose 106 H (75-100) mg/dL POC Glucose (70-105) Calcium 7.5 L (8.4-10.2) mg/dL Albumin 3.4 L (3.9-5) g/dL
[2018-08-19] MEDS: HumuLIN R SUB-Q SCH ×3 (08:56→22:06)
[2018-08-19] MEDS: CATAPRES PO SCH ×3 (08:57→22:05)
--- NOTE | 2018-08-19 08:57 | Progress Note ---
Assessment and Plan Impression: * ESRD * gross hematuria * HTN * anemia in ESRD Plan: * Continue HD q TTHSAT * He undergoes dialysis at [facility] under the care of Dr Mouna Cordon on TTS schedule * no heparin with HD * urology following, cysto rescheduled for today. Coordinate with dialysis . D/ W rolls baker * strict i/os * bp control--will amend medications * uf as tolerated with hd * cbc/lytes prn Subjective Date of service: 08/19/18 Principal diagnosis: hematuria, ESRD of disease on hemodialysis Interval history: patient is comfortable today . Denies SOB . Objective - Vital Signs Vital signs: Vital Signs - 12hr 08/18/18 08/18/18 08/18/18 21:52 21:53 21:54 Temperature 98.4 F Pulse Rate 76 77 77 Respiratory 18 Rate Respiratory Rate [Chest] Blood Pressure 138/68 138/68 O2 Sat by Pulse 96 96 Oximetry 08/18/18 08/19/18 08/19/18 22:00 00:17 05:49 Temperature 98.4 F 98.3 F Pulse Rate 78 81 Respiratory 16 16 Rate Respiratory 18 Rate [Chest] Blood Pressure 141/85 149/81 O2 Sat by Pulse 98 94 Oximetry - General Appearance General appearance: well-developed, well-nourished, appears stated age EENT: PERRL, mucous membranes moist Neck: no JVD, no thyromegaly, no carotid bruit, supple Respiratory: Present: Clear to Ascultation Cardiology: regular, normal heart rate, S1S2, no murmurs Gastrointestinal: normoactive bowel sounds, other (colostomy bag in place ) Integumentary: other (AVF left UE . Good bruit and thrill ) - Lab 08/16/18 06:39 08/19/18 04:51 Most recent lab results Calcium 7.5 mg/dL (8.4-10.2) L 08/19/18 04:51
[2018-08-19] MEDS: COZAAR PO SCH (10:00)
[2018-08-19] MEDS ORDERED: NACL 0.9 (PRIMING MACHINE ONLY DIALYSIS) MC ONE (12:48)
[2018-08-19] MEDS: ROCEPHIN/NS 1 GM/50 ML 1 GM/50 ML BAG IV SCH (14:27)
[2018-08-19] MEDS ORDERED: DIPRIVAN 10 MG/ML IV ONE (16:44)
[2018-08-19] MEDS ORDERED: XYLOCAINE MPF 2% ONE (16:45)
[2018-08-19] MEDS ORDERED: DILAUDID ONE (16:46)
--- NOTE | 2018-08-19 17:13 | Anesthesia Consultation ---
Anesthesia Consult and Med Hx Date of service: 08/19/18 - Airway Anesthetic Teeth Evaluation: Poor ROM Head & Neck: Adequate Mental/Hyoid Distance: Adequate Mallampati Class: Class II Intubation Access Assessment: Probably Good - Pulmonary Exam CTA: Yes - Cardiac Exam Cardiac Exam: RRR - Pre-Operative Health Status ASA Pre-Surgery Classification: ASA3 Proposed Anesthetic Plan: General - Pulmonary Hx Smoking: No Hx Asthma: No Hx Respiratory Symptoms: No COPD: No - Cardiovascular System Hx Hypertension: Yes Hx Heart Attack/AMI: No Hx Percutaneous Transluminal Coronary Angioplasty (PTCA): No - Central Nervous System Hx Seizures: No CVA: No - Endocrine Hx Renal Disease: Yes (hematuria) Hx End Stage Renal Disease: Yes (s/p failed renal transplant 2014; last HD ) Hx Insulin Dependent Diabetes: Yes - Hematic Hx Anemia: Yes - Additional Comments Anesthesia Medical History Comments: No hx anesthetic complications.
[2018-08-19] MEDS ORDERED: SUBLIMAZE IV PRN (17:25)
--- NOTE | 2018-08-19 17:26 | Anesthesia Day of Surgery ---
Anesthesia Day of Surgery - Day of Surgery Patient Examined: Yes Patient H&P Reviewed: Yes Patient is NPO: Yes
[2018-08-19] MEDS: SODIUM CHLORIDE FLUSH SYRINGE 10 ML IV SCH ×2 (17:35→22:08)
[2018-08-19] MEDS ORDERED: NACL 0.9% 1000 ML 1,000 ML ONE (17:51)
[2018-08-19] MEDS ORDERED: ZOFRAN ONE (17:59)
[2018-08-19] MEDS ORDERED: OMNIPAQUE (240mg) IV ONE (17:59)
[2018-08-19] MEDS ORDERED: ANCEF ONE (18:00)
--- NOTE | 2018-08-19 18:09 | Post Operative Note ---
Date of procedure: 08/19/18 Pre-op diagnosis: gross hematuria Post-op diagnosis: other (prostaic inflammation-------NO TUMORS OR STONES) Procedure: CYSTO, CYSTOGRAM Surgeon: JOSUE MOULTON Estimated blood loss: none Pathology: none Condition: stable Disposition: PACU (OK TO DC HOME (NO MEDS NEEDED)---F/U WITH OR OR [facility] )
[2018-08-19] MEDS ORDERED: NORMODYNE IV ONE ×2 (18:36→19:42)
--- NOTE | 2018-08-19 18:52 | Operative Report ---
PREOPERATIVE DIAGNOSIS: Gross hematuria. POSTOPERATIVE DIAGNOSES: Gross hematuria, prostatic inflammation. PROCEDURE: Cystoscopy, cystogram. SURGEON: Blair Granda MD ANESTHESIA: General. ESTIMATED BLOOD LOSS: Minimal. FLUIDS: Crystalloid. COMPLICATIONS: No complications. INDICATIONS: This 72-year-old gentleman admitted to the hospital by Dr. Alvarez for gross hematuria. CT of abdomen and pelvis was performed. Small kidneys were noted. Renal transplant in right lower quadrant of the pelvis failed by history. Also of note, the patient has collapsed L4-L5 vertebral interspace. No other abnormalities could be appreciated. Discussed options, he was cleared. They agreed to proceed with surgical intervention. DESCRIPTION OF PROCEDURE: The patient was taken to the operative suite, placed in supine position. After adequate general anesthesia, placed in a dorsal lithotomy position, prepped and draped in a sterile fashion. Pancystourethroscopy was performed with 22-Turkish Storz cystoscope, no urethral abnormalities. His prostate was consistent with a previous TUR, right lateral lobe mildly protruding into the bladder. Left side had been resected; however, there was some inflammation in the prostatic bed. Bladder, no tumors or stones were noted. Panendoscopy at the dome of the bladder, you could see the area of ureteral anastomosis. A cystogram was performed. No reflux in the [place] or transplant kidneys. Bladder was drained. Rectal exam could not be performed. The patient is status post colostomy. He was extubated and taken to recovery room in stable condition. JOB# [id number] HUGO/SAJI
--- NOTE | 2018-08-19 22:15 | Post Anesthesia Evaluation ---
- Post Anesthesia Evaluation Patient Participated: Yes Airway Patent: Yes Stable Respiratory Function: Yes Nausea/Vomiting: No Temp > 96.8F: Yes Pain Manageable: Yes Adequeate Hydration: Yes Anesthesia Complications: No
[2018-08-20] MEDS: LANTUS SUB-Q SCH (04:06)
[2018-08-20 06:12] LABS: Basophils # (Auto) 0.1 K/mm3 (0.0-0.1); Basophils % (Auto) 1.4 % (0.0-1.8); Eosinophils # (Auto) 0.2 K/mm3 (0.0-0.4); Hematocrit 34.3 % (35.5-45.6); Hemoglobin 10.7 gm/dl (11.8-15.2); Lymphocytes # (Auto) 0.7 K/mm3 (1.2-5.4); Lymphocytes % (Auto) 11.7 % (13.4-35.0); Mean Corpuscular HGB Conc 31 % (32-34); Mean Corpuscular Hemoglobin 26 pg (28-32); Mean Corpuscular Volume 84 fl (84-94); Monocytes # (Auto) 0.7 K/mm3 (0.0-0.8); Monocytes % (Auto) 11.4 % (0.0-7.3); Platelet Count 207 K/mm3 (140-440); Red Blood Count 4.09 M/mm3 (3.65-5.03); Red Cell Distribution Width 18.8 % (13.2-15.2)
[2018-08-20 06:35] LABS: Albumin 3.2 g/dL (3.9-5); Calcium 7.9 mg/dL (8.4-10.2)
[2018-08-20] MEDS: BIDIL 20/37.5MG PO SCH (06:40)
--- NOTE | 2018-08-20 07:28 | Fluoroscopy Report ---
FLUOROSCOPY CYSTOGRAM STATIC-OR History: Hematuria, end-stage renal disease. Findings: Fluoroscopy was provided by radiology during cystogram by the urologist. 3 fluoroscopic images were captured. In Classroom [employer] film of the pelvis is unremarkable other than vascular calcifications. The second image demonstrates a Mcdaniel catheter in the bladder and the bladder distended with contrast agent. No bladder abnormality is detected. The third image was obtained after removal of the Mcdaniel catheter with a small postvoid residual evident. Impression: Unremarkable bladder. Small post void residual.
[2018-08-20] MEDS: HumuLIN R SUB-Q SCH (07:29)
--- NOTE | 2018-08-20 08:41 | Discharge Summary ---
Providers - Providers Date of Admission: 08/14/18 15:36 Date of discharge: 08/20/18 Attending physician: LORI CORONA 08/14/18 14:53 Consult to Physician [CONS] Urgent Comment: Consulting Provider: BLAIR GRANDA Physician Instructions: Reason For Exam: GROSS HEMATURIA Consult to Physician [CONS] Urgent Comment: Consulting Provider: RACHEAL BANKS Physician Instructions: Reason For Exam: ESRD NEEDING DIALYSIS !! Primary care physician: LORI CORONA Hospitalization Reason for admission: gross hematuria Condition: Fair Pertinent studies: CT scan of the abdomen and pelvis Cystoscopy showing inflammation of the prostatic bed but no tumor or mass found Procedures: Cystoscopy under anesthesia showing inflammation of of the prostatic bed and the previously resected section of the prostate on the left lobe Hospital course: 72-year-old male with history of hypertension and diabetes and previous kidney transplants presented in the office on account of ongoing hematuria which had been ongoing for approximately 3-4 weeks prior to presentation. Patient describes painless hematuria no fever or chills. Patient has history of prostate resection approximately one year ago at [facility] and also history of kidney transplant which failed in January 2018 and patient now back on hemodialysis. Patient was evaluated on admission initial hemoglobin on admission was 10.8 and there was no evidence of urinary tract infection or sepsis. Consultation was put in to urology and patient was evaluated by Dr. Blair Granda and scheduled for operating room cystoscopy under general anesthesia. Patient was also evaluative. Continuum Of Care Manager Dr. Banks and patient had hemodialysis while on admission. Cystoscopy was performed under general anesthesia report showed inflammation of the prostatic bed and areas of previous prostate resection on the left lobe of the prostate there was no mass or tumor found inside the bladder. Patient continues to have intermittent hematuria Ultram the time of hospitalization. Urologist Dr. Singh advised patient to follow-up as outpatient and adviced that hematuria will gradually subside over time but no additional plan for surgery or any other procedure at this time. This was extended to the patient and his with a plan to follow-up with Dr. Granda as outpatient oral to follow-up with [facility] who performed initial prostatic resection over a year ago Patient had hemodialysis yesterday and is clinically stable and hemoglobin remained above 10 and no evidence of infection. Blood sugar and blood pressure remained fairly stable during. Of hospitalization. Patient will be discharged to follow-up as outpatient with the urologist. Disposition: DC-01 TO HOME OR SELFCARE - Discharge Diagnoses (1) Hematuria Status: Chronic Qualifiers: Hematuria type: gross Qualified Code(s): R31.0 - Gross hematuria Comment: Discussed with Dr. Blair Granda the urologist was advised patient that hematuria was gradually subside over time and to follow up as outpatient. No malignancy found on cystoscopy (2) Anemia Status: Acute Qualifiers: Anemia type: due to chronic kidney disease Chronic kidney disease stage: on chronic dialysis Qualified Code(s): N18.6 - End stage renal disease; D63.1 - Anemia in chronic kidney disease; Z99.2 - Dependence on renal dialysis Comment: Hemoglobin noted to be stable for the period of hospitalization despite ongoing hematuria (3) ESRD needing dialysis Status: Chronic Comment: . Patient to follow-up with is ld teacher Dr. 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 senior living insulin use status Qualified Code(s): E11.65 - Type 2 diabetes mellitus with hyperglycemia Comment: Continue current ongoing diabetes management and monitor blood sugar at home as previously Core Measure Documentation - Palliative Care Palliative Care/ Comfort Measures: Not Applicable - Core Measures Any of the following diagnoses?: none Exam - Physical Exam Narrative exam: GENERAL: Patient is not in any acute distress HEENT: Mildly pale but not jaundiced and not cyanosed NECK: [No JVD, no thyroid enlargement and no lymphadenopathy.] CHEST/LUNGS: [Good air exchange bilaterally, no wheeze, no rales and no rhonchi. ] [No chest wall tenderness, percussion is normal, symmetrical chest wall.] HEART/CARDIOVASCULAR: Regular rate and rhythm. First and Second heart sounds only systolic murmur grade 3/6 in the mitral area ABDOMEN: Abdomen is flat soft active bowel sounds, colostomy in place and functional SKIN: [Warm and dry, no rash.] NEURO: [Awake, alert, oriented x3, speech normal. Power 5/5 in all the extremities.] EXTREMITIES: [No pedal edema, good peripheral pulses, no finger or toe clubbing. ] - Constitutional Vitals: Temp Pulse Resp BP Pulse Ox 98.0 F 73 16 92/49 94 10//18 06:10 08/20/18 06:10 08/20/18 06:10 08/20/18 06:10 08/20/18 06:10 Plan Activity: no restrictions Weight Bearing Status: Full Weight Bearing Diet: renal Follow up with: LORI CORONA MD [Primary Care Provider] - 7 Days BLAIR GRANDA MD [Staff Physician] - 7 Days
[2018-08-20] MEDS: COZAAR PO SCH (09:14)
[2018-08-20] MEDS: CATAPRES PO SCH (09:14)
[2018-08-20] MEDS: SODIUM CHLORIDE FLUSH SYRINGE 10 ML IV SCH (09:16)
[2018-08-20 09:17] VITALS: BP 98/56
[2018-08-20] MEDS: ROCEPHIN/NS 1 GM/50 ML 1 GM/50 ML BAG IV SCH (10:13)
== END 2018-08-20 11:15 | disposition home or self-care (01) | DRG 727 ==
LOC: 3A 14:14 → UNDOADMIN 14:14 → 3A 15:36
PROVIDERS: ADMIT Internal Medicine; ATTEND Internal Medicine
PROC: 5A1D70Z Performance of Urinary Filtration, Intermittent, Less than 6 Hours Per Day (ICD-10-PCS; 2018-08-15)
PROC: 5A1D70Z Performance of Urinary Filtration, Intermittent, Less than 6 Hours Per Day (ICD-10-PCS; 2018-08-16)
PROC: BT14ZZZ Fluoroscopy of Kidneys, Ureters and Bladder (ICD-10-PCS; principal; 2018-08-19)
PROC: 0TJB8ZZ Inspection of Bladder, Via Natural or Artificial Opening Endoscopic (ICD-10-PCS; 2018-08-19)
PROC: 0TJD8ZZ Inspection of Urethra, Via Natural or Artificial Opening Endoscopic (ICD-10-PCS; 2018-08-19)
PROC: 5A1D70Z Performance of Urinary Filtration, Intermittent, Less than 6 Hours Per Day (ICD-10-PCS; 2018-08-19)
DX: N41.9 Inflammatory disease of prostate, unspecified (principal); N18.6 End stage renal disease; Z94.0 Kidney transplant status; I12.0 Hypertensive chronic kidney disease with stage 5 chronic kidney disease or end stage renal disease; E11.65 Type 2 diabetes mellitus with hyperglycemia; R31.0 Gross hematuria; D63.1 Anemia in chronic kidney disease; E11.22 Type 2 diabetes mellitus with diabetic chronic kidney disease; Z79.51 Long term (current) use of inhaled steroids; Z93.3 Colostomy status; Z99.2 Dependence on renal dialysis; Z79.84 Long term (current) use of oral hypoglycemic drugs
CPT/HCPCS: 36415; 74176; 74430; 76770; 80048; 80053; 82550; 82553; 82962; 85025; 85610; 85730; 90686; 93005; 93010; J0690; J0696; J0885; J1170; J1815; J2405; J2704; J7030; Q9967

== ENCOUNTER 2019-01-12 18:52 | Inpatient (IN) | payer MEDICARE ==
--- NOTE | 2019-01-12 20:31 | Emergency Department Report ---
ED Palpitations HPI - General Chief Complaint: Arrhythmia/Palpitations Stated Complaint: BRADYCARDIA DURING DIALYSIS Time Seen by Provider: 01/12/19 20:10 Source: patient Mode of arrival: Stretcher Limitations: No Limitations - History of Present Illness Initial Comments: 73-year-old male with history of ESRD presents to ED for bradycardia during dialysis. Patient states he received 2-1/2 hours of his three-hour dialysis treatment. Patient states he was on his heart rate went into the 30s. Patient denies being symptomatic at that time, denies chest pain, shortness of breath, dizziness, vomiting or nausea. Patient denies any cardiac history other than HTN. PCP: Kim Slabbing Machine Operator: Leo Software Firmware Engineer: Vahid -: This evening Context: occured during rest (during dialysis) Associated Symptoms: denies: chest pain, shortness of breath, syncope, near- syncope, nausea/vomiting, diaphoresis - Related Data Previous Rx's Medication Instructions Recorded Last Taken Type Isosorb Dinit/Hydralazine [Bidil 1 each PO Q8HR tablet 08/20/18 Unknown Rx 20/37.5MG] cloNIDine [Catapres] 0.2 mg PO TID tablet 08/20/18 Unknown Rx Allergies Allergy/AdvReac Type Severity Reaction Status Date / Time No Known Allergies Allergy Unverified 04/18/15 19:25 ED Review of Systems ROS: Stated complaint: BRADYCARDIA DURING DIALYSIS Other details as noted in HPI Comment: All other systems reviewed and negative Constitutional: denies: chills, fever Respiratory: denies: shortness of breath Cardiovascular: denies: chest pain Gastrointestinal: denies: nausea, vomiting Neurological: denies: weakness ED Past Medical Hx - Past Medical History Previous Medical History?: Yes Hx Hypertension: Yes Hx Heart Attack/AMI: No Hx Congestive Heart Failure: Yes Hx Diabetes: Yes Hx Renal Disease: Yes (hematuria, m/w/f dialysis, left fistula) Hx Seizures: No Hx Asthma: No Hx COPD: No Hx HIV: No - Surgical History Past Surgical History?: Yes Additional Surgical History: kidney transplant 2 years ago - Social History Smoking Status: Never Smoker Substance Use Type: None - Medications Home Medications: Home Medications Medication Instructions Recorded Confirmed Last Taken Type Isosorb Dinit/Hydralazine [Bidil 1 each PO Q8HR tablet 08/20/18 01/12/19 Unknown Rx 20/37.5MG] cloNIDine [Catapres] 0.2 mg PO TID tablet 08/20/18 01/12/19 Unknown Rx ED Physical Exam - General Limitations: No Limitations General appearance: alert, in no apparent distress, other (frail) - Head Head exam: Present: atraumatic, normocephalic - Eye Eye exam: Present: normal appearance - ENT ENT exam: Present: mucous membranes moist - Neck Neck exam: Present: normal inspection - Respiratory Respiratory exam: Present: normal lung sounds bilaterally. Absent: respiratory distress - Cardiovascular Cardiovascular Exam: Present: regular rate, normal rhythm - GI/Abdominal GI/Abdominal exam: Present: soft. Absent: distended, tenderness - Extremities Exam Extremities exam: Present: normal inspection - Neurological Exam Neurological exam: Present: alert, oriented X3 - Psychiatric Psychiatric exam: Present: normal affect, normal mood - Skin Skin exam: Present: warm, dry, intact, normal color ED Course Vital Signs 01/12/19 01/12/19 01/12/19 19:04 19:13 20:00 Temperature 97.9 F Pulse Rate 89 83 Respiratory 19 16 Rate Blood Pressure 153/95 147/85 Blood Pressure 153/95 [Right] O2 Sat by Pulse 97 96 98 Oximetry 01/12/19 01/12/19 01/12/19 21:00 21:20 22:00 Temperature Pulse Rate 89 84 Respiratory 18 12 Rate Blood Pressure 158/89 144/96 Blood Pressure 144/96 [Right] O2 Sat by Pulse 98 98 98 Oximetry 01/12/19 01/12/19 01/13/19 23:00 23:07 00:00 Temperature 98.1 F Pulse Rate 82 84 78 Respiratory 14 19 14 Rate Blood Pressure 145/101 Blood Pressure 145/101 [Right] O2 Sat by Pulse 98 99 100 Oximetry ED Medical Decision Making - Lab Data Result diagrams: 01/12/19 20:30 01/12/19 21:51 - EKG Data -: EKG Interpreted by Me EKG shows normal: sinus rhythm Rate: normal (rate 83) - EKG Data When compared to previous EKG there are: no significant change (compared to ) Interpretation: LVH, other (mult PVCs present; T wave inversion V4-6, I, aVL; prolonged QT) - Radiology Data Radiology results: report reviewed, image reviewed - Medical Decision Making 73-year-old male presents to the ED for bradycardia that occurred during dialysis today. Apparently has been normal here in ED. Lab work was done, initial BMP was erroneous given no findings of renal failure and there is also a potassium elevation even though the patient was just dialyzed, so BMP was repeated which was unremarkable. Patient did have elevated troponin of 0.2, however no acute ST changes on EKG, appeared unchanged from previous. The patient also denies any chest pain. Spoke with patient's PCP, Dr Alvarez, will admit for monitoring. Bridge orders placed. - Differential Diagnosis bradycardia, ACS, hyperkalemia Critical care attestation.: If time is entered above; I have spent that time in minutes in the direct care of this critically ill patient, excluding procedure time. ED Disposition Clinical Impression: Bradycardia, Elevated troponin Disposition: OP ADMIT IP TO THIS HOSP Is pt being admited?: Yes Condition: Stable Time of Disposition: 22:55
[2019-01-12 21:17] LABS: INR 1.35 (0.87-1.13); Partial Thromboplastin Time 31.4 Sec. (24.2-36.6)
[2019-01-12 21:18] LABS: Hemolysis Index 2
[2019-01-12 21:29] LABS: Mean Corpuscular HGB Conc 31 % (32-34); Mean Corpuscular Volume 84 fl (84-94); Red Blood Count 6.06 M/mm3 (3.65-5.03)
[2019-01-12 21:30] LABS: Hematocrit 50.8 % (35.5-45.6)
[2019-01-12 21:31] LABS: Hemoglobin 15.7 gm/dl (11.8-15.2); Red Cell Distribution Width 21.9 % (13.2-15.2)
[2019-01-12 21:42] LABS: BUN/Creatinine Ratio 7; Blood Urea Nitrogen 30 mg/dL (9-20); Calcium 8.6 mg/dL (8.4-10.2)
--- NOTE | 2019-01-12 21:51 | XRay Report ---
PROCEDURE: XR CHEST 1V AP TECHNIQUE: Portable semiupright AP chest x-ray HISTORY: weakness COMPARISONS: None FINDINGS: The heart is magnified due to projection although appears to be enlarged. There are increased densiti es in the perihilar regions. This is greatest in the right upper lobe although not densely consolidat ed. These findings could be chronic and represent fibrosis. I cannot exclude atelectasis or small pat rhys infiltrates. Lungs otherwise are clear. No effusions are seen. No evidence of pneumothorax. No ac [place] bone abnormalities are visualized. IMPRESSION: Increased perihilar densities greatest in the right upper lobe as described may represent chronic fib rosis. I cannot exclude small areas of superimposed atelectasis or infiltrate.. Cardiomegaly. This document is electronically signed by Kain Barrios MD., January 12 2019 09:49:38 PM ET
[2019-01-12 22:00] LABS: Giant Platelets 1+; Total Cells Counted 100
[2019-01-12 22:01] LABS: Anisocytosis 1+; Large Platelets Few; Target Cells 1+
[2019-01-12 22:02] LABS: Macrocytosis 2+; Platelet Estimate Consistent w Auto
[2019-01-12 22:06] LABS: Platelet Count 112 K/mm3 (140-440)
[2019-01-12 22:13] LABS: Calcium 8.5 mg/dL (8.4-10.2)
[2019-01-12 22:27] LABS: Chol/HDL Ratio 2.69 %; HDL Cholesterol 65 mg/dL (40-59); LDL Cholesterol,Direct 96 mg/dL (50-130)
[2019-01-12] MEDS ORDERED: ASPIRIN PO ONE (22:50)
[2019-01-13] MEDS ORDERED: D50W (25GM) Syringe IV PRN (01:28)
--- NOTE | 2019-01-13 01:40 | History and Physical Report ---
History of Present Illness Date of examination: 01/13/19 Date of admission: 01/12/19 22:56 Chief complaint: bradycardia change in mental status weakness History of present illness: 73 year old male admitted from the dialysis center after a sudden drop in hear rate into the 30'swith associated change in mental status and weakness patient's blood pressure was also reported to have dropped and patient became weak and disoriented.patient was advised to be transferred to the ER by his import/export agent Dr Redding for further evaluation .Patient'stroponin level was found to be elevated in the ER but heart rate was back to normal range,no shortness of breath or chest pain during evaluation in the ER. 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 Patient denied any associated chest pain prior to or during the hemodialysis outpatient was 2 hours into the dialysis when the arteries was reported to have dropped. Procedure coronary medication for hypertension as well as diabetes and he stated that his blood pressure and blood sugar has been under good control hospital. The patient would now be admitted for further evaluation ,serum potassium was noted to be elevated and patient will be evaluated for resumption of hemodialysis today, case discussed with import/export agent Medications and Allergies Allergies Allergy/AdvReac Type Severity Reaction Status Date / Time No Known Allergies Allergy Unverified 04/18/15 19:25 Home Medications Medication Instructions Recorded Confirmed Last Taken Type Isosorb Dinit/Hydralazine [Bidil 1 each PO Q8HR tablet 08/20/18 01/12/19 Unknown Rx 20/37.5MG] cloNIDine [Catapres] 0.2 mg PO TID tablet 08/20/18 01/12/19 Unknown Rx Active Meds: Active Medications Clonidine HCl (Catapres) 0.2 mg PO TID [facility] Dextrose (D50w (25gm) Syringe) 50 ml IV PRN PRN PRN Reason: Hypoglycemia Isosorbide Dinitrate/Hydralazine (Bidil 20/37.5mg) 1 each PO Q8HR [facility] Exam - Physical Exam Narrative exam: GENERAL: Elderly male, chronically ill-looking emaciated not in acute distress resting comfortably in bed. HEENT: Normocephalic, mildly pale but not jaundiced no cyanosis, mucous membrane is moist Mucous membrane is moist, pharynx is clear, no exudates or hemorrhage. Dentition is normal. NECK: Supple. Neck showed good range of motion. There is no adenopathy noted. No jugular venous distention and no thyromegaly. Neck auscultation showed no carotid bruit. CHEST/LUNGS: Good air exchange bilaterally. Clear to auscultation. There is no respiratory distress noted. Chest percussion normal, symmetrical chest movements with no chest wall tenderness. HEART/CARDIOVASCULAR: No murmur. Regular rate and rhythm. S1 and S2 only, no S 3 gallop, no S4. ABDOMEN: Abdomen is soft nondistended, colostomy in place in the left side of the abdomen colostomy function, no palpable mass bowel sounds active no tenderness, liver or spleen and kidneys are not enlarged SKIN: Skin is dry, poor skin turgor, scaly rash in the lower extremity NEURO: The patient is awake, alert, and oriented. The patient is cooperative. The patient has no focal neurologic deficits. Cranial nerves 2-12 grossly normal, power is 5/5 in all the extremities tested. The patient has normal speech and gait. MUSCULOSKELETAL: Muscle bulk is noted to be diminished bilaterally and the lower extremities muscles EXTREMITIES: No pedal edema, no varicose veins, good peripheral pulses symmetrical and bilaterally, no pretibial edema, no finger or toe clubbing. - Constitutional Vitals: Temp Pulse Resp BP Pulse Ox 98.1 F 78 14 145/101 100 01/12/19 23:07 01/13/19 00:00 01/13/19 00:00 01/13/19 00:00 01/13/19 00:00 Results - Labs CBC & Chem 7: 01/13/19 07:17 01/12/19 21:51 Labs: Abnormal lab results 01/12/19 01/12/19 01/12/19 Range/Units 20:30 20:30 20:46 WBC 3.6 L (4.5-11.0) K/mm3 RBC 6.06 H (3.65-5.03) M/mm3 Hgb 15.7 H (11.8-15.2) gm/dl Hct 50.8 H (35.5-45.6) % MCH 26 L (28-32) pg MCHC 31 L (32-34) % RDW 21.9 H (13.2-15.2) % Plt Count 112 L (140-440) K/mm3 Monocytes % (Manual) 14.0 H (0.0-7.3) % Eosinophils % (Manual) 11.0 H (0.0-4.3) % Basophils % (Manual) 2.0 H (0.0-1.8) % Lymphocytes # (Manual) 0.6 L (1.2-5.4) K/mm3 PT 17.5 H (12.2-14.9) Sec. INR 1.35 H (0.87-1.13) Sodium 135 L (137-145) mmol/L Potassium 6.5 H* (3.6-5.0) mmol/L Chloride 92.3 L (98-107) mmol/L Carbon Dioxide (22-30) mmol/L BUN 30 H (9-20) mg/dL Creatinine < 0.2 L (0.8-1.5) mg/dL Troponin T 0.242 H* (0.00-0.029) ng/mL HDL Cholesterol 65 H (40-59) mg/dL 01/12/19 Range/Units 21:51 WBC (4.5-11.0) K/mm3 RBC (3.65-5.03) M/mm3 Hgb (11.8-15.2) gm/dl Hct (35.5-45.6) % MCH (28-32) pg MCHC (32-34) % RDW (13.2-15.2) % Plt Count (140-440) K/mm3 Monocytes % (Manual) (0.0-7.3) % Eosinophils % (Manual) (0.0-4.3) % Basophils % (Manual) (0.0-1.8) % Lymphocytes # (Manual) (1.2-5.4) K/mm3 PT (12.2-14.9) Sec. INR (0.87-1.13) Sodium 134 L (137-145) mmol/L Potassium (3.6-5.0) mmol/L Chloride 94.3 L (98-107) mmol/L Carbon Dioxide 21 L (22-30) mmol/L BUN 27 H (9-20) mg/dL Creatinine 4.1 H D (0.8-1.5) mg/dL Troponin T (0.00-0.029) ng/mL HDL Cholesterol (40-59) mg/dL Assessment and Plan - Patient Problems (1) Bradycardia Current Visit: Yes Status: Acute Plan to address problem: Transient bradycardia while on hemodialysis, patient is noted to be in sinus rhythm at this time with heart rate in the 70s, patient currently asymptomatic we'll continue to monitor in telemetry. (2) Elevated troponin Current Visit: Yes Status: Acute Plan to address problem: At the present elevated troponin level but cardiac enzymes noted to be within normal range patient is currently asymptomatic no chest pain and no prior histor y of coronary artery disease we'll continue to monitor, suspect elevated troponin was likely secondary to underlying renal end-stage renal disease (3) Anemia Current Visit: No Status: Acute Qualifiers: Anemia type: due to chronic kidney disease Chronic kidney disease stage: on chronic dialysis Qualified Code(s): N18.6 - End stage renal disease; D63.1 - Anemia in chronic kidney disease; Z99.2 - Dependence on renal dialysis (4) ESRD needing dialysis Current Visit: No Status: Chronic Plan to address problem: Patient currently on hemodialysis and has been tolerating hemodialysis over the last 2 years following rejection) of transplanted kidney. Patient was not able to complete her dialysis yesterday secondary to bradycardia will reconsult nep hrology to evaluate The patient's stated ongoing challenge with taking care of the patient at home as he is mostly at home by himself but patient's is at work and all children are grown and in college. Patient's is requesting evaluation by case management for possible placement in a prison due to increasing difficulty with attending to all his needs and care at home. We'll consult case management to discuss with his and patient regarding requests (5) Hyperglycemia due to type 2 diabetes mellitus Current Visit: No Status: Chronic Qualifiers: Diabetes mellitus terminal gauger supervisor insulin use: unspecified terminal gauger supervisor insulin use status Qualified Code(s): E11.65 - Type 2 diabetes mellitus with hyperglycemia Plan to address problem: Patient currently fairly well controlled on current diabetes medication will place on sliding scale and monitor blood sugar and cover appropriately
[2019-01-13] MEDS: BIDIL 20/37.5MG PO SCH ×3 (05:13→21:30)
[2019-01-13 07:28] LABS: Mean Corpuscular HGB Conc 31 % (32-34); Mean Corpuscular Volume 82 fl (84-94); Red Blood Count 5.47 M/mm3 (3.65-5.03)
[2019-01-13 07:31] LABS: Red Cell Distribution Width 21.4 % (13.2-15.2)
--- NOTE | 2019-01-13 09:14 | Progress Note ---
Assessment and Plan - Patient Problems (1) Bradycardia Current Visit: Yes Status: Acute Plan to address problem: Transient bradycardia while on hemodialysis, patient is noted to be in sinus rhythm at this time with heart rate in the 70s, patient currently asymptomatic we'll continue to monitor in telemetry. (2) Elevated troponin Current Visit: Yes Status: Acute Plan to address problem: At the present elevated troponin level but cardiac enzymes noted to be within normal range patient is currently asymptomatic no chest pain and no prior history of coronary artery disease we'll continue to monitor, suspect elevated troponin was likely secondary to underlying renal end-stage renal disease (3) Anemia Current Visit: No Status: Acute Qualifiers: Anemia type: due to chronic kidney disease Chronic kidney disease stage: on chronic dialysis Qualified Code(s): N18.6 - End stage renal disease; D63.1 - A nemia in chronic kidney disease; Z99.2 - Dependence on renal dialysis Plan to address problem: Hemoglobin noted to be fairly stable to monitor (4) ESRD needing dialysis Current Visit: No Status: Chronic Plan to address problem: Patient currently on hemodialysis and has been tolerating hemodialysis over the last 2 years following rejection) of transplanted kidney. Patient was not able to complete her dialysis yesterday secondary to bradycardia will reconsult nephrology to evaluate The patient's stated ongoing challenge with taking care of the patient at home as he is mostly at home by himself but patient's is at work and all children are grown and in college. Patient's is requesting evaluation by case management for possible placement in a correction due to increasing difficulty with attending to all his needs and care at home. We'll consult case management to discuss with his and patient regarding requests (5) Hyperglycemia due to type 2 diabetes mellitus Current Visit: No Status: Chronic Qualifiers: Diabetes mellitus senior living insulin use: unspecified vending attendant insulin use status Qualified Code(s): E11.65 - Type 2 diabetes mellitus with hyperglycemia Plan to address problem: Patient currently fairly well controlled on current diabetes medication will place on sliding scale and monitor blood sugar and cover appropriately (6) Hyperkalemia Current Visit: Yes Status: Acute Plan to address problem: Case discussed with nephrology, who would like to resume hemodialysis again today, monitor serum potassium to assess need for additional treatment Subjective Date of service: 01/13/19 Interval history: Patient denied any new symptoms, no chest pain or shortness of breath, heart rate noted to be more stable in the 60s to 70s. Blood pressure noted to be stable Objective - Exam Narrative Exam: GENERAL: Ill looking, not in acute distress HEENT: Patient is not pale, not jaundiced, not cyanosed. NECK: No JVD, no thyroid enlargement and no lymphadenopathy. CHEST/LUNGS: Good air exchange bilaterally, no wheeze, no rales and no rhonchi. No chest wall tenderness, percussion is normal, symmetrical chest wall. HEART/CARDIOVASCULAR: Regular rate and rhythm, S1 and S2 only, no murmur. ABDOMEN: Abdomen is soft, nondistended, no guarding, no rebound tenderness, no masses palpable per abdomen, active bowel sounds colostomy in place, active bowel sounds no palpable mass. SKIN: Warm and dry, scaly rash in the lower extremities . NEURO: Awake, alert, oriented x3, speech normal. Power 5/5 in all the extremities. EXTREMITIES: No pedal edema, good peripheral pulses, no finger or toe clubbing. - Constitutional Vitals: Vital Signs - 12hr 01/12/19 01/12/19 01/12/19 21:20 22:00 23:00 Temperature Pulse Rate 89 84 82 Respiratory 18 12 14 Rate Blood Pressure 144/96 Blood Pressure 144/96 [Right] O2 Sat by Pulse 98 98 98 Oximetry 01/12/19 01/12/19 01/13/19 23:07 23:29 00:00 Temperature 98.1 F Pulse Rate 84 78 78 Respiratory 19 14 Rate Blood Pressure 145/101 Blood Pressure 145/101 [Right] O2 Sat by Pulse 99 100 Oximetry 01/13/19 05:02 Temperature 98.2 F Pulse Rate 83 Respiratory 18 Rate Blood Pressure 143/89 Blood Pressure [Right] O2 Sat by Pulse 94 Oximetry - Labs CBC & Chem 7: 01/13/19 07:17 01/12/19 21:51 Labs: Abnormal lab results 01/12/19 01/12/19 01/12/19 Range/Units 20:30 20:30 20:46 WBC 3.6 L (4.5-11.0) K/mm3 RBC 6.06 H (3.65-5.03) M/mm3 Hgb 15.7 H (11.8-15.2) gm/dl Hct 50.8 H (35.5-45.6) % MCV (84-94) fl MCH 26 L (28-32) pg MCHC 31 L (32-34) % RDW 21.9 H (13.2-15.2) % Plt Count 112 L (140-440) K/mm3 Monocytes % (Manual) 14.0 H (0.0-7.3) % Eosinophils % (Manual) 11.0 H (0.0-4.3) % Basophils % (Manual) 2.0 H (0.0-1.8) % Lymphocytes # (Manual) 0.6 L (1.2-5.4) K/mm3 PT 17.5 H (12.2-14.9) Sec. INR 1.35 H (0.87-1.13) Sodium 135 L (137-145) mmol/L Potassium 6.5 H* (3.6-5.0) mmol/L Chloride 92.3 L (98-107) mmol/L Carbon Dioxide (22-30) mmol/L BUN 30 H (9-20) mg/dL Creatinine < 0.2 L (0.8-1.5) mg/dL Troponin T 0.242 H* (0.00-0.029) ng/mL HDL Cholesterol 65 H (40-59) mg/dL 01/12/19 01/13/19 Range/Units 21:51 07:17 WBC 3.6 L (4.5-11.0) K/mm3 RBC 5.47 H (3.65-5.03) M/mm3 Hgb (11.8-15.2) gm/dl Hct (35.5-45.6) % MCV 82 L (84-94) fl MCH 26 L (28-32) pg MCHC 31 L (32-34) % RDW 21.4 H (13.2-15.2) % Plt Count (140-440) K/mm3 Monocytes % (Manual) (0.0-7.3) % Eosinophils % (Manual) (0.0-4.3) % Basophils % (Manual) (0.0-1.8) % Lymphocytes # (Manual) (1.2-5.4) K/mm3 PT (12.2-14.9) Sec. INR (0.87-1.13) Sodium 134 L (137-145) mmol/L Potassium (3.6-5.0) mmol/L Chloride 94.3 L (98-107) mmol/L Carbon Dioxide 21 L (22-30) mmol/L BUN 27 H (9-20) mg/dL Creatinine 4.1 H D (0.8-1.5) mg/dL Troponin T (0.00-0.029) ng/mL HDL Cholesterol (40-59) mg/dL
--- NOTE | 2019-01-13 09:15 | Consultation ---
History of Present Illness - Reason for Consult Consult date: 01/13/19 end stage renal disease Requesting physician: LORI CORONA - History of Present Illness Mr. Ingram is a 73-year-old [place] male with past medical history significant for hypertension, diabetes and end-stage renal disease on maintenance hemodialysis was sent to the emergency room for evaluation of bradycardia. He had a potassium of 6.5 in the emergency room which was treated medically. He undergoes dialysis at the [facility] on MWF schedule under the care of Dr. Cordon . He only had approximately 2-1/2 hours of treatment yesterday. Patient denies any shortness of breath. No chest pain. No nausea or vomiting. Past History Past Medical History: diabetes, dialysis, hypertension, other (history of kidney transplant) Past Surgical History: Other (AV fistula creation. History of kidney transplant about 4 years ago) Social history: no significant social history Family history: no significant family history Medications and Allergies Allergies Allergy/AdvReac Type Severity Reaction Status Date / Time No Known Allergies Allergy Unverified 04/18/15 19:25 Home Medications Medication Instructions Recorded Confirmed Last Taken Type Isosorb Dinit/Hydralazine [Bidil 1 each PO Q8HR tablet 08/20/18 01/12/19 Unknown Rx 20/37.5MG] cloNIDine [Catapres] 0.2 mg PO TID tablet 08/20/18 01/12/19 Unknown Rx Active Meds: Active Medications Clonidine HCl (Catapres) 0.2 mg PO TID [facility] Dextrose (D50w (25gm) Syringe) 50 ml IV PRN PRN PRN Reason: Hypoglycemia Isosorbide Dinitrate/Hydralazine (Bidil 20/37.5mg) 1 each PO Q8HR [facility] Last Admin: 01/13/19 05:13 Dose: 1 each Documented by: Review of Systems All systems: negative (negative except as noted above) Exam - Vital Signs Vital signs: Vital Signs Pulse Ox 97 01/12/19 19:04 - General Appearance General appearance: chronically ill, frail EENT: ATNC Neck: Present: neck supple, trachea midline. Absent: JVD/HJR, Masses Respiratory: Clear to Ascultation Heart: regular, normal heart rate, S1S2, no murmurs Gastrointestinal: Present: normal, normoactive bowel sounds Integumentary: no rash, other (AV fistula in his left upper arm. Good bruit and thrill. Aneurysmal dilation noted) Results - Lab Results 01/13/19 07:17 01/12/19 21:51 Most recent lab results Calcium 8.5 mg/dL (8.4-10.2) 01/12/19 21:51 Assessment and Plan Impression * End-stage renal disease on maintenance hemodialysis * Bradycardia * Hyperkalemia * Hypertension * History of diabetes * History of renal transplant * Anemia secondary to ESRD Recommendations * Suspect his bradycardia was due to hyperkalemia. * Although his potassium was corrected with medical treatment, his hyperkalemia may rebound. * Schedule patient for hemodialysis today and keep him on TTS schedule for now * He undergoes dialysis on MWF schedule as outpatient under the care of Dr. Cordon * Avoid nephrotoxins * Monitor fluid status and electrolytes closely * No IV, BP or venipuncture and his access arm * Adjust diet and meds for ESRD state * Hold Procrit for now as his hemoglobin is >12 * Binders with meals * Thank you very much for the consultation. Shall follow along with
[2019-01-13] MEDS ORDERED: NACL 0.9% 100 ML IV PRN (09:18)
[2019-01-13] MEDS: CATAPRES PO SCH ×3 (09:33→20:00)
[2019-01-13 09:45] LABS: Total Cells Counted 100
[2019-01-13 09:46] LABS: Anisocytosis 1+
[2019-01-13 09:47] LABS: Platelet Estimate Consistent w Auto; Poikilocytosis 1+; Target Cells 1+
[2019-01-13 09:48] LABS: Platelet Count 151 K/mm3 (140-440)
[2019-01-13] MEDS ORDERED: NACL 0.9 (PRIMING MACHINE ONLY DIALYSIS) MC ONE (16:42)
[2019-01-14 07:20] LABS: Albumin 3.5 g/dL (3.9-5); Calcium 8.7 mg/dL (8.4-10.2)
--- NOTE | 2019-01-14 08:36 | Progress Note ---
Assessment and Plan - Patient Problems (1) Bradycardia Current Visit: Yes Status: Acute Plan to address problem: Heart rate noted to be stable. Continue to monitor, blood pressure however noted to be slightly low Will hold all blood pressure medication at this time (2) Elevated troponin Current Visit: Yes Status: Acute Plan to address problem: At the present elevated troponin level but cardiac enzymes noted to be within normal range patient is currently asymptomatic no chest pain and no prior history of coronary artery disease we'll continue to monitor, suspect elevated troponin was likely secondary to underlying renal end-stage renal disease (3) Anemia Current Visit: No Status: Acute Qualifiers: Anemia type: due to chronic kidney disease Chronic kidney disease stage: on chronic dialysis Qualified Code(s): N18.6 - End stage renal disease; D63.1 - Anemia in chronic kidney disease; Z99.2 - Dependence on renal dialysis Plan to address problem: Hemoglobin noted to be fairly stable to monitor (4) ESRD needing dialysis Current Visit: No Status: Chronic Plan to address problem: Awaiting hemodialysis today and will continue to monitor electrolytes and serum potassium noted to be within normal range following hemodialysis yesterday (5) Hyperglycemia due to type 2 diabetes mellitus Current Visit: No Status: Chronic Qualifiers: 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 Patient denied any new complaints, no chest pain or shortness of breath and no fever reported. Objective - Exam Narrative Exam: GENERAL: Ill looking, not in acute distress HEENT: Patient is not pale, not jaundiced, not cyanosed. NECK: No JVD, no thyroid enlargement and no lymphadenopathy. CHEST/LUNGS: Good air exchange bilaterally, no wheeze, no rales and no rhonchi. No chest wall tenderness, percussion is normal, symmetrical chest wall. HEART/CARDIOVASCULAR: Regular rate and rhythm, S1 and S2 only, no murmur. ABDOMEN: Abdomen is soft, nondistended, no guarding, no rebound tenderness, no masses palpable per abdomen, active bowel sounds colostomy in place, active bowel sounds no palpable mass. SKIN: Warm and dry, scaly rash in the lower extremities . NEURO: Awake, alert, oriented x3, speech normal. Power 5/5 in all the extremities. EXTREMITIES: No pedal edema, good peripheral pulses, no finger or toe clubbing. - Constitutional Vitals: Vital Signs - 12hr 01/13/19 01/13/19 01/14/19 21:30 23:00 00:22 Temperature 98.1 F Pulse Rate 82 91 H 77 Respiratory 17 Rate Blood Pressure 91/57 108/68 O2 Sat by Pulse 97 Oximetry 01/14/19 03:49 Temperature 97.7 F Pulse Rate 78 Respiratory 18 Rate Blood Pressure 96/61 O2 Sat by Pulse 95 Oximetry - Labs CBC & Chem 7: 01/13/19 07:17 01/14/19 05:40 Labs: Abnormal lab results 01/13/19 01/14/19 Range/Units 07:17 05:40 Eosinophils % (Manual) 8.0 H (0.0-4.3) % Lymphocytes # (Manual) 0.8 L (1.2-5.4) K/mm3 Chloride 91.6 L (98-107) mmol/L BUN 25 H (9-20) mg/dL Creatinine 3.9 H (0.8-1.5) mg/dL Alkaline Phosphatase 137 H (35-129) units/L Total Protein 8.7 H (6.3-8.2) g/dL Albumin 3.5 L (3.9-5) g/dL
[2019-01-14] MEDS: BIDIL 20/37.5MG PO SCH ×2 (16:27→21:28)
[2019-01-14] MEDS: CATAPRES PO SCH ×3 (16:27→21:29)
--- NOTE | 2019-01-14 23:13 | Progress Note ---
Assessment and Plan - Patient Problems (1) ESRD needing dialysis Current Visit: No Status: Chronic Plan to address problem: ESRD on Hemodialysis - Access : Left arm AVF with aneurysm - Discussed follow up with vascular surgery - Hemodialysis will be TTS. (2) Hyperglycemia due to type 2 diabetes mellitus Current Visit: No Status: Chronic Qualifiers: Diabetes mellitus senior care insulin use: unspecified manager payer insulin use status Qualified Code(s): E11.65 - Type 2 diabetes mellitus with hyperglycemia Plan to address problem: DM type II continue current medications (3) HTN (hypertension) Current Visit: Yes Status: Acute Plan to address problem: HTN :controlled continue current medications. (4) Bradycardia Current Visit: Yes Status: Acute Plan to address problem: Bradycardia Admitted with hyperkalemia and bradycardia. - Recent EKG with repolarization changes and LVH - intermittent bradycardia reported by nursing - asymptomatic this am. - Will aim to keep potassium WNL Subjective Date of service: 01/14/19 Interval history: 73 year old Gentleman with medical history signficant for ESRD on hemodialysis admitted with bradycardia and hyperkalemia and received hemodialysis on Saturday . 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 no peripheral edema. He does have some memory loss. Objective - Vital Signs Vital signs: Vital Signs - 12hr 01/14/19 01/14/19 01/14/19 16:27 17:30 18:01 Temperature 97.5 F L Pulse Rate 86 46 L Respiratory 18 Rate Blood Pressure 146/98 133/77 O2 Sat by Pulse 98 Oximetry 01/14/19 01/14/19 01/14/19 18:02 21:28 21:29 Temperature 97.2 F L Pulse Rate 65 65 Respiratory Rate Blood Pressure 93/59 93/59 O2 Sat by Pulse Oximetry - General Appearance General appearance: cachectic, chronically ill, frail EENT: ATNC, PERRL, mucous membranes dry Neck: no JVD Respiratory: Present: Clear to Ascultation Cardiology: S1S2 Gastrointestinal: normal, normoactive bowel sounds Integumentary: no rash Neurologic: alert and oriented x3 Musculoskeletal: deferred Psychiatric: mood/affect appropriate - Lab 01/13/19 07:17 01/14/19 05:40 Most recent lab results Calcium 8.7 mg/dL (8.4-10.2) 01/14/19 05:40 - Imaging Other: other (ekg) Medications & Allergies - Medications Allergies/Adverse Reactions: Allergies No Known Allergies Allergy (Unverified 04/18/15 19:25) Home Medications: Home Medications Medication Instructions Recorded Confirmed Last Taken Type Isosorb Dinit/Hydralazine [Bidil 1 each PO Q8HR tablet 08/20/18 01/12/19 Unknown Rx 20/37.5MG] cloNIDine [Catapres] 0.2 mg PO TID tablet 08/20/18 01/12/19 Unknown Rx Active Medications: Generic Name Dose Route Start Last Admin Trade Name Freq PRN Reason Stop Dose Admin Clonidine HCl 0.2 mg 01/13/19 08:00 01/14/19 21:29 Catapres PO Not Given TID LUCHO Dextrose 50 ml 01/13/19 01:28 D50w (25gm) Syringe IV PRN PRN Hypoglycemia Sodium Chloride 100 mls @ 999 mls/hr 01/13/19 09:18 Nacl 0.9% IV VEDA PRN Hypotension Isosorbide Dinitrate/Hydralazine 1 each 01/13/19 06:00 01/14/19 21:28 Bidil 20/37.5mg PO Not Given Q8HR LUCHO
[2019-01-15 06:52] LABS: Hematocrit 44.4 % (35.5-45.6); Hemoglobin 14.2 gm/dl (11.8-15.2); Mean Corpuscular HGB Conc 32 % (32-34); Mean Corpuscular Volume 82 fl (84-94); Red Blood Count 5.42 M/mm3 (3.65-5.03)
[2019-01-15 06:55] LABS: Platelet Count 141 K/mm3 (140-440)
[2019-01-15] MEDS: BIDIL 20/37.5MG PO SCH ×4 (07:00→23:11)
[2019-01-15 07:16] LABS: Albumin 3.4 g/dL (3.9-5); Calcium 8.7 mg/dL (8.4-10.2)
--- NOTE | 2019-01-15 08:35 | Progress Note ---
Assessment and Plan - Patient Problems (1) Bradycardia Current Visit: Yes Status: Acute Plan to address problem: Heart rate noted to be stable. Continue to monitor, blood pressure however noted to be slightly low Will hold all blood pressure medication at this time (2) Elevated troponin Current Visit: Yes Status: Resolved (3) Anemia Current Visit: No Status: Chronic Qualifiers: Anemia type: due to chronic kidney disease Chronic kidney disease stage: on chronic dialysis Qualified Code(s): N18.6 - End stage renal disease; D63.1 - Anemia in chronic kidney disease; Z99.2 - Dependence on renal dialysis Plan to address problem: Hemoglobin noted to be fairly stable to monitor (4) ESRD needing dialysis Current Visit: No Status: Chronic Plan to address problem: Awaiting hemodialysis today and will continue to monitor electrolytes and serum potassium noted to be within normal range . Patent's spouse requesting [facility] placement ,case management working on placing patient . 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 Objective - Exam Narrative Exam: GENERAL: Ill looking, not in acute distress HEENT: Patient is not pale, not jaundiced, not cyanosed. NECK: No JVD, no thyroid enlargement and no lymphadenopathy. CHEST/LUNGS: Good air exchange bilaterally, no wheeze, no rales and no rhonchi. No chest wall tenderness, percussion is normal, symmetrical chest wall. HEART/CARDIOVASCULAR: Regular rate and rhythm, S1 and S2 only, no murmur. ABDOMEN: Abdomen is soft, nondistended, no guarding, no rebound tenderness, no masses palpable per abdomen, active bowel sounds colostomy in place, active bowel sounds no palpable mass. SKIN: Warm and dry, scaly rash in the lower extremities . NEURO: Awake, alert, oriented x3, speech normal. Power 5/5 in all the extremities. EXTREMITIES: No pedal edema, good peripheral pulses, no finger or toe clubbing. - Constitutional Vitals: Vital Signs - 12hr 01/14/19 01/14/19 01/15/19 21:28 21:29 00:00 Temperature 97.8 F Pulse Rate 65 65 70 Respiratory 20 Rate Blood Pressure 93/59 93/59 Blood Pressure 134/79 [Right] O2 Sat by Pulse 100 Oximetry 01/15/19 01/15/19 05:00 07:00 Temperature 97.2 F L Pulse Rate 73 73 Respiratory 20 Rate Blood Pressure 128/80 128/80 Blood Pressure 128/80 [Right] O2 Sat by Pulse 98 Oximetry - Labs CBC & Chem 7: 01/15/19 06:00 01/15/19 06:00 Labs: Abnormal lab results 01/14/19 01/15/19 01/15/19 Range/Units 18:06 06:00 06:00 WBC 4.1 L (4.5-11.0) K/mm3 RBC 5.42 H (3.65-5.03) M/mm3 MCV 82 L (84-94) fl MCH 26 L (28-32) pg RDW 21.0 H (13.2-15.2) % Sodium 132 L (137-145) mmol/L Chloride 88.4 L (98-107) mmol/L BUN 38 H (9-20) mg/dL Creatinine 5.2 H (0.8-1.5) mg/dL Glucose 101 H (75-100) mg/dL POC Glucose 177 H (70-105) Alkaline Phosphatase 143 H (35-129) units/L Total Protein 8.7 H (6.3-8.2) g/dL Albumin 3.4 L (3.9-5) g/dL
[2019-01-15 08:46] LABS: Total Cells Counted 100
[2019-01-15 08:49] LABS: Anisocytosis 1+; Platelet Estimate Consistent w Auto; Poikilocytosis 1+; Target Cells 1+
[2019-01-15] MEDS: CATAPRES PO SCH ×3 (11:28→20:26)
--- NOTE | 2019-01-15 15:33 | Progress Note ---
Assessment and Plan - Patient Problems (1) ESRD needing dialysis Current Visit: No Status: Chronic Plan to address problem: ESRD on Hemodialysis - Access : Left arm AVF with aneurysm - Discussed follow up with vascular surgery - Hemodialysis will be TTS. - UF: 2L as tolerated. 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 (4) Bradycardia Current Visit: Yes Status: Acute Plan to address problem: Bradycardia Admitted with hyperkalemia and bradycardia. - Recent EKG with repolarization changes and LVH - intermittent bradycardia reported by nursing - asymptomatic this am. - Will aim to keep potassium WNL Thank you for this consultation . Subjective Date of service: 01/15/19 Interval history: 73 year old Gentleman with medical history signficant for ESRD on hemodialysis admitted with bradycardia and hyperkalemia and received hemodialysis on Saturday . He denies any orthopnea or PND no peripheral edema. He does have some memory loss. I attest that I saw the patient on hemodialysis. Blood pressure is borderline Denies any fever or chills. Objective - Vital Signs Vital signs: Vital Signs - 12hr 01/15/19 01/15/19 01/15/19 05:00 07:00 08:02 Temperature 97.2 F L 97.2 F L Pulse Rate 73 76 Respiratory 20 18 Rate Blood Pressure 128/80 128/80 134/70 Blood Pressure 128/80 [Right] O2 Sat by Pulse 98 Oximetry 01/15/19 01/15/19 01/15/19 12:14 12:27 14:45 Temperature 98.0 F 97.5 F L Pulse Rate 70 58 L Respiratory 18 16 Rate Blood Pressure 143/121 115/53 Blood Pressure 137/92 [Right] O2 Sat by Pulse Oximetry 01/15/19 01/15/19 14:55 15:00 Temperature Pulse Rate 58 L 55 L Respiratory Rate Blood Pressure 115/63 103/46 Blood Pressure [Right] O2 Sat by Pulse Oximetry - General Appearance General appearance: well-developed, well-nourished EENT: ATNC, PERRL Neck: no JVD, no thyromegaly Respiratory: Present: Clear to Ascultation. Absent: Increased Expir. Phase Cardiology: regular, S1S2 Gastrointestinal: normal, normoactive bowel sounds Integumentary: no rash, warm and dry Neurologic: alert and oriented x3 Musculoskeletal: deferred Psychiatric: mood/affect appropriate - Lab 01/15/19 06:00 01/15/19 06:00 Most recent lab results Calcium 8.7 mg/dL (8.4-10.2) 01/15/19 06:00 - Imaging Chest x-ray: other (I reviewed CXR without overt edema. ) Medications & Allergies - Medications Allergies/Adverse Reactions: Allergies No Known Allergies Allergy (Unverified 04/18/15 19:25) Home Medications: Home Medications Medication Instructions Recorded Confirmed Last Taken Type Isosorb Dinit/Hydralazine [Bidil 1 each PO Q8HR tablet 08/20/18 01/12/19 Unknown Rx 20/37.5MG] cloNIDine [Catapres] 0.2 mg PO TID tablet 08/20/18 01/12/19 Unknown Rx Active Medications: Generic Name Dose Route Start Last Admin Trade Name Freq PRN Reason Stop Dose Admin Clonidine HCl 0.2 mg 01/13/19 08:00 01/15/19 14:48 Catapres PO Not Given TID LUCHO Dextrose 50 ml 01/13/19 01:28 D50w (25gm) Syringe IV PRN PRN Hypoglycemia Sodium Chloride 100 mls @ 999 mls/hr 01/13/19 09:18 Nacl 0.9% IV VEDA PRN Hypotension Isosorbide Dinitrate/Hydralazine 1 each 01/13/19 06:00 01/15/19 13:15 Bidil 20/37.5mg PO 1 each Q8HR LUCHO Administration
--- NOTE | 2019-01-15 16:54 | Discharge Summary ---
Providers - Providers Date of Admission: 01/12/19 22:56 Date of discharge: 01/15/19 Attending physician: LORI CORONA 01/13/19 01:20 Consult to Case Management [CONS] Routine Services Needed at Discharge: Other Notified:: TRUNG Comment:: fornursing home placement per family request 01/14/19 08:28 Consult to Case Management [CONS] Urgent Services Needed at Discharge: Other Notified:: no Was contact made?: No Additional Physician Instructions: For [facility] placement per 's wishes 01/14/19 10:34 Occupational Therapy Evaluate and Treat [CONS] Routine Comment: Reason For Exam: weakness Physical Therapy Evaluation and Treat [CONS] Routine Comment: Reason For Exam: weakness Primary care physician: DWAIN YING Hospitalization Reason for admission: Bradycardia during hemodialysis Condition: Fair Pertinent studies: Chest XRay EKG Procedures: Hemodialysis Hospital course: 73 year old male admitted following development of Bradycardia and hypotension during hemodialysis . Patient was evaluated and potassium was noted to be elevated at admission . Hemodialysis was resumed and heart rate and blood pressure has now remained stableover the past 24 hours . 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 Patient has been accepted for placement at [facility] and will be discharged after dialysis is completed today Disposition: [id number] [facility] - Discharge Diagnoses (1) Bradycardia Status: Acute (2) Elevated troponin Status: Resolved (3) Anemia Status: Chronic Qualifiers: Anemia type: due to chronic kidney disease Chronic kidney disease stage: on chronic dialysis Qualified Code(s): N18.6 - End stage renal disease; D63.1 - Anemia in chronic kidney disease; Z99.2 - Dependence on renal dialysis Comment: Hemoglobin noted to be stable for the period of hospitalization despite ongoing hematuria (4) ESRD needing dialysis Status: Chronic Comment: . Patient to follow-up with is full time paramedic Dr. Mary brito at [facility] Patient to continue with current hemodialysis scheduled Saturday and Saturday (5) Hyperglycemia due to type 2 diabetes mellitus Status: Chronic Qualifiers: Diabetes mellitus retirement insulin use: unspecified retirement insulin use status Qualified Code(s): E11.65 - Type 2 diabetes mellitus with hyperglycemia Comment: Continue current ongoing diabetes management and monitor blood sugar at home as previously (6) Hyperkalemia Status: Resolved Core Measure Documentation - Palliative Care Palliative Care/ Comfort Measures: Not Applicable - Core Measures Any of the following diagnoses?: history only Exam - Physical Exam Narrative exam: GENERAL: Ill looking, not in acute distress HEENT: Patient is not pale, not jaundiced, not cyanosed. NECK: No JVD, no thyroid enlargement and no lymphadenopathy. CHEST/LUNGS: Good air exchange bilaterally, no wheeze, no rales and no rhonchi. No chest wall tenderness, percussion is normal, symmetrical chest wall. HEART/CARDIOVASCULAR: Regular rate and rhythm, S1 and S2 only, no murmur. ABDOMEN: Abdomen is soft, nondistended, no guarding, no rebound tenderness, no masses palpable per abdomen, active bowel sounds colostomy in place, active bowel sounds no palpable mass. SKIN: Warm and dry, scaly rash in the lower extremities . NEURO: Awake, alert, oriented x3, speech normal. Power 5/5 in all the extremities. EXTREMITIES: No pedal edema, good peripheral pulses, no finger or toe clubbing. - Constitutional Vitals: Temp Pulse Resp BP Pulse Ox 97.5 F L 55 L 16 103/46 98 01/15/19 14:45 01/15/19 15:00 01/15/19 14:45 01/15/19 15:00 01/15/19 05:00 Plan Activity: advance as tolerated, fall precautions Weight Bearing Status: Full Weight Bearing Diet: renal Follow up with: LORI CORONA MD [Staff Physician] - 7 Days
[2019-01-15 19:30] LABS: Hepatitis B Surface Antigen Non-Reactive (Negative); Hepatitis C Virus Antibody Non-Reactive (NonReactive)
[2019-01-16] MEDS: BIDIL 20/37.5MG PO SCH (05:26)
[2019-01-16 09:14] VITALS: BP 116/55
[2019-01-16] MEDS: CATAPRES PO SCH (10:19)
== END 2019-01-16 12:31 | DRG 308 ==
LOC: ED 18:52 → 4A 22:56
PROVIDERS: ADMIT Internal Medicine; ATTEND Internal Medicine
PROC: 5A1D70Z Performance of Urinary Filtration, Intermittent, Less than 6 Hours Per Day (ICD-10-PCS; principal; 2019-01-13)
PROC: 5A1D70Z Performance of Urinary Filtration, Intermittent, Less than 6 Hours Per Day (ICD-10-PCS; 2019-01-15)
DX: R00.1 Bradycardia, unspecified (principal); N18.6 End stage renal disease; Z94.0 Kidney transplant status; I12.0 Hypertensive chronic kidney disease with stage 5 chronic kidney disease or end stage renal disease; E11.65 Type 2 diabetes mellitus with hyperglycemia; E87.5 Hyperkalemia; E11.22 Type 2 diabetes mellitus with diabetic chronic kidney disease; D63.1 Anemia in chronic kidney disease; Z99.2 Dependence on renal dialysis; Z79.84 Long term (current) use of oral hypoglycemic drugs
CPT/HCPCS: 36415; 71045; 80048; 80053; 80061; 80074; 82962; 84484; 85007; 85025; 85610; 85730; 93005; 93010; G0378; J7030

== ENCOUNTER 2019-02-13 20:26 | Emergency (ER) | payer MEDICARE, BC ==
[2019-02-13] MEDS ORDERED: APRESOLINE IV ONE (20:48)
--- NOTE | 2019-02-13 20:52 | Emergency Department Report ---
ED General Adult HPI - General Chief complaint: High BP Stated complaint: HYPERTENSION Time Seen by Provider: 02/13/19 20:43 Source: patient Mode of arrival: Stretcher Limitations: No Limitations - History of Present Illness Initial comments: 73-year-old male with history of ESRD who presents to ED with elevated BP. Patient completed dialysis today, however, upon completion patient is hypertensive, 200/118. Clonidine 0.2 mg given at dialysis clinic. Patient remained hypertensive and was transported to ED. Patient has no complaints, denies headache, dizziness, chest pain, shortness of breath, nausea or vomiting. Concert Promoter: Dr [place] -: This evening Severity scale (0 -10): 0 Improves with: none Worsens with: none Associated Symptoms: denies other symptoms. denies: chest pain, headaches, nausea/vomiting, shortness of breath Treatments Prior to Arrival: other (clonidine) - Related Data Previous Rx's Medication Instructions Recorded Last Taken Type Isosorb Dinit/Hydralazine [Bidil 1 each PO Q8HR tablet 08/20/18 Unknown Rx 20/37.5MG] cloNIDine [Catapres] 0.2 mg PO TID tablet 08/20/18 Unknown Rx Allergies Allergy/AdvReac Type Severity Reaction Status Date / Time No Known Allergies Allergy Unverified 04/18/15 19:25 ED Review of Systems ROS: Stated complaint: HYPERTENSION Other details as noted in HPI Comment: All other systems reviewed and negative Respiratory: denies: shortness of breath Cardiovascular: denies: chest pain Gastrointestinal: denies: abdominal pain, vomiting Neurological: denies: headache ED Past Medical Hx - Past Medical History Previous Medical History?: Yes Hx Hypertension: Yes Hx Heart Attack/AMI: No Hx Congestive Heart Failure: Yes Hx Diabetes: Yes Hx Renal Disease: Yes (ESRD) Hx Seizures: No Hx Asthma: No Hx COPD: No Hx HIV: No - Surgical History Past Surgical History?: Yes Additional Surgical History: kidney transplant 2 years ago, fistula left arm - Social History Smoking Status: Former Smoker Substance Use Type: None - Medications Home Medications: Home Medications Medication Instructions Recorded Confirmed Last Taken Type Isosorb Dinit/Hydralazine [Bidil 1 each PO Q8HR tablet 08/20/18 01/12/19 Unknown Rx 20/37.5MG] cloNIDine [Catapres] 0.2 mg PO TID tablet 08/20/18 01/12/19 Unknown Rx ED Physical Exam - General Limitations: No Limitations General appearance: alert, in no apparent distress - Head Head exam: Present: atraumatic, normocephalic - Eye Eye exam: Present: normal appearance - ENT ENT exam: Present: mucous membranes moist - Neck Neck exam: Present: normal inspection - Respiratory Respiratory exam: Present: normal lung sounds bilaterally. Absent: respiratory distress - Cardiovascular Cardiovascular Exam: Present: regular rate, normal rhythm - GI/Abdominal GI/Abdominal exam: Present: soft. Absent: distended, tenderness - Extremities Exam Extremities exam: Present: normal inspection - Neurological Exam Neurological exam: Present: alert, oriented X3 - Psychiatric Psychiatric exam: Present: normal affect, normal mood - Skin Skin exam: Present: warm, dry, intact, normal color ED Course Vital Signs 02/13/19 02/13/19 02/13/19 20:28 20:39 20:58 Temperature 98.3 F 98.2 F Pulse Rate 81 97 H 89 Respiratory 16 20 Rate Blood Pressure 181/97 181/97 174/97 Blood Pressure 181/97 [Right] O2 Sat by Pulse 97 97 Oximetry 02/13/19 23:27 Temperature 98.2 F Pulse Rate 101 H Respiratory 22 Rate Blood Pressure Blood Pressure 179/110 [Right] O2 Sat by Pulse 96 Oximetry ED Medical Decision Making - Lab Data Result diagrams: 02/13/19 20:41 02/13/19 20:41 - Medical Decision Making 73-year-old male with ESRD, hypertension presents to ED from dialysis with elevated blood pressure, 200/118. Hydralazine given. Remains hypertensive, but BP improved to 170s/90s. Labs unremarkable, except for known elevated creatinine. Potassium normal. O2 sats normal, patient in no respiratory distress. Family member at bedside, brought food for patient, patient currently eating, no complaints. Asymptomatic hypertension, no urgency or emergency present. Will discharge at this time. Outpatient follow-up recommended. - Differential Diagnosis essential HTN Critical care attestation.: If time is entered above; I have spent that time in minutes in the direct care of this critically ill patient, excluding procedure time. ED Disposition Clinical Impression: HTN (hypertension) Disposition: -01 TO HOME OR SELFCARE Is pt being admited?: No Condition: Stable Instructions: Hypertension (ED) Referrals: LEVON QIU MD [Primary Care Provider] - 3-5 Days Time of Disposition: 21:43
[2019-02-13 21:11] LABS: Hematocrit 40.3 % (35.5-45.6); Hemoglobin 12.7 gm/dl (11.8-15.2); Mean Corpuscular HGB Conc 32 % (32-34); Mean Corpuscular Volume 84 fl (84-94); Platelet Count 164 K/mm3 (140-440); Red Blood Count 4.82 M/mm3 (3.65-5.03)
[2019-02-13 21:13] LABS: Red Cell Distribution Width 22.8 % (13.2-15.2)
[2019-02-13 21:34] LABS: Calcium 8.4 mg/dL (8.4-10.2)
[2019-02-13 21:58] LABS: Basophils % (Manual) 0 % (0.0-1.8); RBC Morphology Normal; Total Cells Counted 100
[2019-02-13 23:32] VITALS: BP 179/110
== END 2019-02-13 23:31 | disposition home or self-care (01) ==
LOC: ED 20:26
DX: I13.2 Hypertensive heart and chronic kidney disease with heart failure and with stage 5 chronic kidney disease, or end stage renal disease (principal); E11.22 Type 2 diabetes mellitus with diabetic chronic kidney disease; N18.6 End stage renal disease; Z87.891 Personal history of nicotine dependence; Z99.2 Dependence on renal dialysis
CPT/HCPCS: 36415; 80048; 85007; 85025; 96374; 99284; J0360

== ENCOUNTER 2019-02-16 23:03 | Inpatient (IN) | payer MEDICARE ==
--- NOTE | 2019-02-17 00:30 | Emergency Department Report ---
HPI - General Chief Complaint: Dyspnea/Respdistress Time Seen by Provider: 02/16/19 23:54 - HPI HPI: Room 2 The patient is a 73-year-old male presented with a chief complaint of shortness of breath. Patient is to shortness of breath and cough for 1 day. Patient states his cough is nonproductive. The patient was sent from the alf to the ED for evaluation of shortness of breath. Patient was placed on 100% nonrebreather and states his shortness of breath has improved. The patient desats to 90% on room air. The patient states he is not on oxygen at the [place] [facility]. Patient denied ever having chest pain nausea vomiting or fever. Location: Lungs Duration: One day Quality:. Shortness of Breath Severity: Moderate Modifying factors: [see above] Context: [see above] Mode of transportation: [not driving] ED Past Medical Hx - Past Medical History Hx Hypertension: Yes Hx Congestive Heart Failure: Yes Hx Diabetes: Yes Hx Renal Disease: Yes (ESRD) - Surgical History Additional Surgical History: kidney transplant 2 years ago, fistula left arm - Family History Family history: no significant - Social History Smoking Status: Never Smoker Substance Use Type: None - Medications Home Medications: Home Medications Medication Instructions Recorded Confirmed Last Taken Type Isosorb Dinit/Hydralazine [Bidil 1 each PO Q8HR tablet 08/20/18 01/12/19 Unknown Rx 20/37.5MG] cloNIDine [Catapres] 0.2 mg PO TID tablet 08/20/18 01/12/19 Unknown Rx ED Review of Systems ROS: Stated complaint: SEBASTIAN Other details as noted in HPI Constitutional: denies: fever Eyes: denies: eye pain ENT: denies: throat pain Respiratory: cough, shortness of breath Cardiovascular: denies: chest pain Endocrine: no symptoms reported Gastrointestinal: denies: abdominal pain Genitourinary: denies: testicular pain Musculoskeletal: denies: back pain Neurological: denies: headache Physical Exam - Physical Exam Vital Signs: Vital Signs 02/16/19 02/16/19 23:33 23:45 Pulse Rate 95 H Respiratory 30 H Rate Blood Pressure 167/92 O2 Sat by Pulse 100 100 Oximetry Physical Exam: GENERAL: The patient is well-developed well-nourished male lying on stretcher not appearing to be in acute distress. 1% nonrebreather in place HEENT: Normocephalic. Atraumatic. Extraocular motions are intact. Patient has moist mucous membranes. NECK: Supple. Trachea midline CHEST/LUNGS: Diffuse rhonchi. There is no respiratory distress noted. HEART/CARDIOVASCULAR: Regular. There is no tachycardia. There is no gallop rub or murmur. ABDOMEN: Abdomen is soft, nontender. Patient has normal bowel sounds. There is no abdominal distention. SKIN: There is no rash. There is no edema. There is no diaphoresis. NEURO: The patient is awake, alert, and oriented. The patient is cooperative. The patient has normal speech MUSCULOSKELETAL: There is no evidence of acute injury. ED Course Vital Signs 02/16/19 02/16/19 23:33 23:45 Pulse Rate 95 H Respiratory 30 H Rate Blood Pressure 167/92 O2 Sat by Pulse 100 100 Oximetry ED Medical Decision Making - Lab Data Result diagrams: 02/17/19 00:10 02/17/19 00:10 Laboratory Tests 02/17/19 02/17/19 02/17/19 00:10 00:10 00:10 WBC 5.0 RBC 4.45 Hgb 11.8 Hct 37.3 MCV 84 MCH 26 L MCHC 32 RDW 23.1 H Plt Count 159 Lymph % (Auto) 7.5 L [place] % (Auto) 15.7 H Eos % (Auto) 0.8 Baso % (Auto) 1.9 H Lymph # 0.4 L [place] # 0.8 Eos # 0.0 Baso # 0.1 Seg Neutrophils % 74.1 H Seg Neutrophils # 3.7 PT 20.6 H INR 1.65 H APTT 34.9 POC ABG pH POC ABG pCO2 POC ABG pO2 POC ABG HCO3 POC ABG Total CO2 POC ABG O2 Sat POC ABG Base Excess FiO2 Sodium 140 Potassium 4.8 Chloride 94.4 L Carbon Dioxide 25 Anion Gap 25 BUN 23 H Creatinine 3.8 H Estimated GFR 19 BUN/Creatinine Ratio 6 Glucose 137 H Calcium 8.9 Total Bilirubin 0.90 AST 42 H ALT 43 Alkaline Phosphatase 228 H Ammonia Total Creatine Kinase 143 CK-MB (CK-2) 5.8 H CK-MB (CK-2) Rel Index 4.0 Troponin T 0.195 H* Total Protein 9.1 H Albumin 4.5 Albumin/Globulin Ratio 1.0 02/17/19 02/17/19 00:10 00:26 WBC RBC Hgb Hct MCV MCH MCHC RDW Plt Count Lymph % (Auto) [place] % (Auto) Eos % (Auto) Baso % (Auto) Lymph # [place] # Eos # Baso # Seg Neutrophils % Seg Neutrophils # PT INR APTT POC ABG pH 7.430 POC ABG pCO2 36.3 POC ABG pO2 53 L POC ABG HCO3 24.1 POC ABG Total CO2 25 POC ABG O2 Sat 88 POC ABG Base Excess 0 FiO2 21 Sodium Potassium Chloride Carbon Dioxide Anion Gap BUN Creatinine Estimated GFR BUN/Creatinine Ratio Glucose Calcium Total Bilirubin AST ALT Alkaline Phosphatase Ammonia 55.0 Total Creatine Kinase CK-MB (CK-2) CK-MB (CK-2) Rel Index Troponin T Total Protein Albumin Albumin/Globulin Ratio - EKG Data -: EKG Interpreted by Me EKG shows normal: sinus rhythm Rate: normal - EKG Data When compared to previous EKG there are: previous EKG unavailable Interpretation: unchanged when compared t (01/12/2019) - Radiology Data Radiology results: report reviewed (chest x-ray), image reviewed (chest x-ray) interpreted by me: Chest [id number]. No pneumothorax [facility] [address] [place] [address] XRay Report Signed Patient: SURENDRA MOORE MR#: [id number] : 1945 Acct:[id number] Age/Sex: 73 / M ADM Date: 02/16/19 Loc: ED Attending Dr: Ordering Physician: MAXIMINO ZAPATA MD Date of Service: 02/17/19 Procedure(s): XR chest 1V ap Accession Number(s): [id number] cc: MAXIMINO ZAPATA MD Fluoro Time In Minutes: PROCEDURE: XR CHEST 1V AP TECHNIQUE: Chest radiograph single view. HISTORY: shortness of breath COMPARISONS: January 12, 2019 . FINDINGS: Heart: The heart size is slightly pronounced but stable. Mediastinum/Vessels: Normal. Lungs/Pleural space: Mild vascular congestion with slight atelectasis bilateral lower lungs. Mild bilateral effusions are suspected. No pneumothorax. Bony thorax: No acute osseous abnormality. Life support devices: None. IMPRESSION: Mild CHF with slight atelectasis bilateral lower lungs. Mild bilat eral effusions are suspected.. This document is electronically signed by Barb Chacon DO., February 17 2019 12:30:50 AM ET Transcribed By: [facility] Dictated By: BARB CHACON MD Electronically Authenticated By: BARB CHACON MD Signed Date/Time: 02/17/1931 DD/ TD/TT: 02/17/1924 - Differential Diagnosis volume overload, pneumonia, Critical care attestation.: If time is entered above; I have spent that time in minutes in the direct care of this critically ill patient, excluding procedure time. ED Disposition Clinical Impression: Shortness of breath, Hypoxia, Cough Disposition: OP ADMIT IP TO THIS HOSP Is pt being admited?: Yes Does the pt Need Aspirin: No Condition: Fair Time of Disposition: 01:14 (hospitalist paged (Dr Reva Cornell))
--- NOTE | 2019-02-17 00:32 | XRay Report ---
PROCEDURE: XR CHEST 1V AP TECHNIQUE: Chest radiograph single view. HISTORY: shortness of breath COMPARISONS: January 12, 2019 . FINDINGS: Heart: The heart size is slightly pronounced but stable. Mediastinum/Vessels: Normal. Lungs/Pleural space: Mild vascular congestion with slight atelectasis bilateral lower lungs. Mild bi lateral effusions are suspected. No pneumothorax. Bony thorax: No acute osseous abnormality. Life support devices: None. IMPRESSION: Mild CHF with slight atelectasis bilateral lower lungs. Mild bilateral effusions are zach pected.. This document is electronically signed by Barb Chacon DO., February 17 2019 12:30:50 AM ET
[2019-02-17 00:47] LABS: Creatine Kinase MB 5.8 ng/mL (0.0-4.0); INR 1.65 (0.87-1.13)
[2019-02-17 00:48] LABS: Albumin 4.5 g/dL (3.9-5); Calcium 8.9 mg/dL (8.4-10.2); Partial Thromboplastin Time 34.9 Sec. (24.2-36.6)
[2019-02-17 01:07] LABS: Basophils # (Auto) 0.1 K/mm3 (0.0-0.1); Basophils % (Auto) 1.9 % (0.0-1.8); Eosinophils % (Auto) 0.8 % (0.0-4.3); Hematocrit 37.3 % (35.5-45.6); Hemoglobin 11.8 gm/dl (11.8-15.2); Lymphocytes # (Auto) 0.4 K/mm3 (1.2-5.4); Lymphocytes % (Auto) 7.5 % (13.4-35.0); Mean Corpuscular HGB Conc 32 % (32-34); Mean Corpuscular Volume 84 fl (84-94); Monocytes # (Auto) 0.8 K/mm3 (0.0-0.8); Monocytes % (Auto) 15.7 % (0.0-7.3); Platelet Count 159 K/mm3 (140-440); Red Blood Count 4.45 M/mm3 (3.65-5.03); Red Cell Distribution Width 23.1 % (13.2-15.2)
[2019-02-17 01:20] LABS: Chol/HDL Ratio 1.78 %
[2019-02-17] MEDS ORDERED: D50W (25GM) Syringe IV PRN (01:49)
[2019-02-17] MEDS ORDERED: SODIUM CHLORIDE FLUSH SYRINGE 10 ML IV PRN (01:49)
[2019-02-17] MEDS ORDERED: ZOFRAN IV PRN (01:49)
--- NOTE | 2019-02-17 01:53 | History and Physical Report ---
History of Present Illness Date of examination: 02/17/19 History of present illness: 73 year old man with a history of hypertension, end-stage renal disease on dialysis, diabetes, comes to the emergency room because his blood pressure was elevated after dialysis. They gave him some medication but his blood pressure did not responded appropriately. He also complained of shortness of breath. The patient was seen here a few days ago for the same, his blood pressure was elevated after dialysis, he was treated in the emergency room and discharged back to halfway. No coughReview of systems Constitutional: no weight loss, chills, fever Ears, eyes, nose, mouth and throat: no nasal congestion, no nasal discharge, no sinus pressure, no vision change, no red eye. Neck: No neck pain or rigidity. Cardiovascular: no palpitations, chest pain Respiratory: no cough, shortness of breath Gastrointestinal: no hematochezia, abdominal pain Genitourinary : no frequency , no hematuria Musculoskeletal: no joint swelling or muscle ache Integumentary: no rash, no pruritis Neurological: no parathesias, no focal weakness Endocrine: no cold or heat intolerance, no polyuria or polydipsia Hematologic/Lymphatic: no easy bruising, no easy bleeding, no gland swelling Allergic/Immunologic: no urticaria, no angioedema. PAST MEDICAL HISTORY:hypertension, end-stage renal disease on dialysis, diabetes PAST SURGICAL HISTORY: Heavy fistula, renal transplant SOCIAL HISTORY: Denies alcohol, drugs, tobacco FAMILY HISTORY: Hypertension Medications and Allergies Allergies Allergy/AdvReac Type Severity Reaction Status Date / Time No Known Allergies Allergy Unverified 04/18/15 19:25 Home Medications Medication Instructions Recorded Confirmed Last Taken Type ALBUTEROL NEB's [Proventil 0.083% 2.5 mg IH Q4HRT PRN nebu 02/20/19 Unknown Rx NEBS] Ipratropium [Atrovent NEB] 0.5 mg IH Q4HRT PRN nebu 02/20/19 Unknown Rx Isosorb Dinit/Hydralazine [Bidil 1 each PO Q8HR tablet 02/20/19 Unknown Rx 20/37.5MG] NIFEdipine XL [Procardia Xl] 60 mg PO Q12HR #60 tablet 02/20/19 Unknown Rx cloNIDine [Catapres] 0.2 mg PO TID tablet 02/20/19 Unknown Rx Active Meds: Active Medications Acetaminophen (Tylenol) 650 mg PO Q4H PRN PRN Reason: Pain MILD(1-3)/Fever >100.5/[place] Dextrose (D50w (25gm) Syringe) 50 ml IV PRN PRN PRN Reason: Hypoglycemia Insulin Human Lispro (Humalog) 0 unit SUB-Q ACHS LUCHO; Protocol Ondansetron HCl (Zofran) 4 mg IV Q8H PRN PRN Reason: Nausea And Vomiting Sodium Chloride (Sodium Chloride Flush Syringe 10 Ml) 10 ml IV BID ULCHO Sodium Chloride (Sodium Chloride Flush Syringe 10 Ml) 10 ml IV PRN PRN PRN Reason: LINE FLUSH Exam - Physical Exam Narrative exam: General Apperance: The patient lying in bed, breathing comfortable HEENT: Normocephalic, atraumatic. Pupils equally round and reactive to light, EOMI, no sclericterus or JVD or thyromegaly or nodule. , no carotid bruit, mucous membranes moist, no exudate or erythema Heart: S1-S2, regular is rhythm Lungs: Wheezing bilaterally, breathing comfortable Abdomen: Positive bowel sounds, soft, nontender, nondistended, no organomegaly Extremities: No edema cyanosis clubbing Skin: no rash, nodule, warm and dry Neuro: cranial nerves 2-12 intact, speech is fluent, motor/sensory intact - Constitutional Vitals: Temp Pulse Resp BP Pulse Ox 93 H 27 H 171/96 100 02/17/19 01:46 02/17/19 01:46 02/17/19 01:46 02/17/19 01:46 Results - Labs CBC & Chem 7: 02/17/19 05:56 02/17/19 05:56 Labs: Abnormal lab results 02/17/19 02/17/19 02/17/19 Range/Units 00:10 00:10 00:10 MCH 26 L (28-32) pg RDW 23.1 H (13.2-15.2) % Lymph % (Auto) 7.5 L (13.4-35.0) % [place] % (Auto) 15.7 H (0.0-7.3) % Baso % (Auto) 1.9 H (0.0-1.8) % Lymph # 0.4 L (1.2-5.4) K/mm3 Seg Neutrophils % 74.1 H (40.0-70.0) % PT 20.6 H (12.2-14.9) Sec. INR 1.65 H (0.87-1.13) POC ABG pO2 (80-105) Chloride 94.4 L (98-107) mmol/L BUN 23 H (9-20) mg/dL Creatinine 3.8 H (0.8-1.5) mg/dL Glucose 137 H (75-100) mg/dL AST 42 H (5-40) units/L Alkaline Phosphatase 228 H (35-129) units/L CK-MB (CK-2) 5.8 H (0.0-4.0) ng/mL Troponin T 0.195 H* (0.00-0.029) ng/mL Total Protein 9.1 H (6.3-8.2) g/dL HDL Cholesterol 85 H (40-59) mg/dL 02/17/19 Range/Units 00:26 MCH (28-32) pg RDW (13.2-15.2) % Lymph % (Auto) (13.4-35.0) % [place] % (Auto) (0.0-7.3) % Baso % (Auto) (0.0-1.8) % Lymph # (1.2-5.4) K/mm3 Seg Neutrophils % (40.0-70.0) % PT (12.2-14.9) Sec. INR (0.87-1.13) POC ABG pO2 53 L (80-105) Chloride (98-107) mmol/L BUN (9-20) mg/dL Creatinine (0.8-1.5) mg/dL Glucose (75-100) mg/dL AST (5-40) units/L Alkaline Phosphatase (35-129) units/L CK-MB (CK-2) (0.0-4.0) ng/mL Troponin T (0.00-0.029) ng/mL Total Protein (6.3-8.2) g/dL HDL Cholesterol (40-59) mg/dL - Imaging and Cardiology Chest x-ray: report reviewed Assessment and Plan Assessment Acute bronchitis Hypertension uncontrolled answered renal disease on dialysis Diabetes Plan Admit to medicine Start IV steroids, nebulizer treatments Drowsiness if blood pressure control Consult renal DVT prophylaxis
[2019-02-17] MEDS ORDERED: SOLU-Medrol ONE (03:02)
[2019-02-17 03:09] LABS: Creatine Kinase MB 4.8 ng/mL (0.0-4.0)
[2019-02-17] MEDS ORDERED: APRESOLINE ONE (04:54)
[2019-02-17] MEDS ORDERED: APRESOLINE IV PRN (05:36)
[2019-02-17] MEDS ORDERED: PROVENTIL IH SCH (06:00)
[2019-02-17] MEDS ORDERED: SOLU-Medrol IV SCH (06:00)
[2019-02-17] MEDS ORDERED: ATROVENT IH SCH (06:00)
[2019-02-17] MEDS: TYLENOL PO PRN (06:02)
[2019-02-17 06:47] LABS: Basophils # (Auto) 0.1 K/mm3 (0.0-0.1); Basophils % (Auto) 0.9 % (0.0-1.8); Eosinophils % (Auto) 0.1 % (0.0-4.3); Hematocrit 35.4 % (35.5-45.6); Hemoglobin 11.3 gm/dl (11.8-15.2); Lymphocytes # (Auto) 0.2 K/mm3 (1.2-5.4); Lymphocytes % (Auto) 2.9 % (13.4-35.0); Mean Corpuscular HGB Conc 32 % (32-34); Mean Corpuscular Volume 84 fl (84-94); Monocytes # (Auto) 0.7 K/mm3 (0.0-0.8); Monocytes % (Auto) 11.9 % (0.0-7.3); Platelet Count 162 K/mm3 (140-440); Red Blood Count 4.24 M/mm3 (3.65-5.03); Red Cell Distribution Width 22.8 % (13.2-15.2)
[2019-02-17 07:13] LABS: Calcium 8.2 mg/dL (8.4-10.2)
[2019-02-17 07:14] LABS: Creatine Kinase MB 4.6 ng/mL (0.0-4.0)
[2019-02-17] MEDS: HumaLOG SUB-Q SCH ×4 (07:30→21:52)
--- NOTE | 2019-02-17 08:30 | Event Note ---
Date: 02/17/19 Reviewing prior records, it appears this patient pcp is Dr. Alvarez, I called his cell phone and left a message if he wants to assume care of this patient. He called me back and will resume care tomorrow. Also, he instructed me to reach out to consult Dr. Rodriguez.
[2019-02-17] MEDS: CATAPRES PO SCH ×3 (08:55→21:46)
--- NOTE | 2019-02-17 09:58 | Consultation ---
History of Present Illness - Reason for Consult Consult date: 02/17/19 end stage renal disease, hyperkalemia Medications and Allergies Allergies Allergy/AdvReac Type Severity Reaction Status Date / Time No Known Allergies Allergy Unverified 04/18/15 19:25 Home Medications Medication Instructions Recorded Confirmed Last Taken Type Isosorb Dinit/Hydralazine [Bidil 1 each PO Q8HR tablet 08/20/18 02/17/19 1 Day Ago Rx 20/37.5MG] ~02/16/19 cloNIDine [Catapres] 0.2 mg PO TID tablet 08/20/18 02/17/19 2 Days Ago Rx ~02/15/19 Active Meds: Active Medications Acetaminophen (Tylenol) 650 mg PO Q4H PRN PRN Reason: Pain MILD(1-3)/Fever >100.5/[place] Last Admin: 02/17/19 06:02 Dose: 650 mg Documented by: Albuterol (Proventil) 2.5 mg IH Q4HRT PRN PRN Reason: Shortness Of Breath Clonidine HCl (Catapres) 0.2 mg PO TID LUCHO Last Admin: 02/17/19 08:55 Dose: 0.2 mg Documented by: Dextrose (D50w (25gm) Syringe) 50 ml IV PRN PRN PRN Reason: Hypoglycemia Enoxaparin Sodium (Lovenox) 30 mg SUB-Q QDAY [facility] Hydralazine HCl (Apresoline) 5 mg IV Q6HR PRN PRN Reason: Blood Pressure Last Admin: 02/17/19 05:20 Dose: 5 mg Documented by: Insulin Human Lispro (Humalog) 0 unit SUB-Q [facility]; Protocol Last Admin: 02/17/19 07:30 Dose: Not Given Documented by: Ipratropium [place] (Atrovent) 0.5 mg IH Q4HRT PRN PRN Reason: Shortness Of Breath Isosorbide Dinitrate/Hydralazine (Bidil 20/37.5mg) 1 each PO Q8HR [place] Methylprednisolone Sodium Succinate (Solu-Medrol) 40 mg IV Q12HR [place] Ondansetron HCl (Zofran) 4 mg IV Q8H PRN PRN Reason: Nausea And Vomiting Sodium Chloride (Sodium Chloride Flush Syringe 10 Ml) 10 ml IV BID LU[place] Sodium Chloride (Sodium Chloride Flush Syringe 10 Ml) 10 ml IV PRN PRN PRN Reason: LINE FLUSH Exam - Vital Signs Vital signs: Vital Signs Pulse Ox 100 02/16/19 23:33 Results - Lab Results 02/17/19 05:56 02/17/19 05:56 Most recent lab results Calcium 8.2 mg/dL (8.4-10.2) L 02/17/19 05:56
[2019-02-17] MEDS ORDERED: LOVENOX SUB-Q SCH (10:00)
[2019-02-17] MEDS ORDERED: NACL 0.9% 100 ML IV PRN ×2 (10:35→19:25)
[2019-02-17] MEDS ORDERED: KIONEX PO ONE (11:00)
[2019-02-17] MEDS: SOLU-Medrol IV SCH ×3 (11:05→21:51)
[2019-02-17] MEDS: SODIUM CHLORIDE FLUSH SYRINGE 10 ML IV SCH ×2 (11:05→21:48)
[2019-02-17] MEDS: PROVENTIL IH PRN ×2 (12:55→14:02)
[2019-02-17] MEDS: ATROVENT IH PRN ×2 (12:55→14:04)
--- NOTE | 2019-02-17 15:16 | Consultation ---
History of Present Illness - Reason for Consult Consult date: 02/17/19 end stage renal disease - History of Present Illness Mr. Ingram is a 73yo gentleman with ESRD on HD, HTN and DM who presented to the ED with shortness of breath and nonproductive cough. In the ED, patient was placed on 100% nonrebreather. CXR notable for pulmonary edema He was recently seen in [facility] ED where he presented to the ED on Feb 13 from dialysis with elevated blood pressure, 200/118. Hydralazine given. BP improved to 170s/90s and patient was discharged to home Patient has been admitted for further management. Past History Past Medical History: cancer (hx of colon CA), ESRD, hypertension, other (prior kidney transplant recipient) Past Surgical History: Other (previous hemicolectomy w/ permanent colostomy secondary to colon cancer) Social history: no significant social history Family history: no significant family history Medications and Allergies Allergies Allergy/AdvReac Type Severity Reaction Status Date / Time No Known Allergies Allergy Unverified 04/18/15 19:25 Home Medications Medication Instructions Recorded Confirmed Last Taken Type Isosorb Dinit/Hydralazine [Bidil 1 each PO Q8HR tablet 08/20/18 02/17/19 1 Day Ago Rx 20/37.5MG] ~02/16/19 cloNIDine [Catapres] 0.2 mg PO TID tablet 08/20/18 02/17/19 2 Days Ago Rx ~02/15/19 Active Meds: Active Medications Acetaminophen (Tylenol) 650 mg PO Q4H PRN PRN Reason: Pain MILD(1-3)/Fever >100.5/[place] Last Admin: 02/17/19 06:02 Dose: 650 mg Documented by: Albuterol (Proventil) 2.5 mg IH Q4HRT PRN PRN Reason: Shortness Of Breath Last Admin: 02/17/19 14:02 Dose: 2.5 mg Documented by: Clonidine HCl (Catapres) 0.2 mg PO TID LUCHO Last Admin: 02/17/19 08:55 Dose: 0.2 mg Documented by: Dextrose (D50w (25gm) Syringe) 50 ml IV PRN PRN PRN Reason: Hypoglycemia Enoxaparin Sodium (Lovenox) 30 mg SUB-Q QDAY [facility] Hydralazine HCl (Apresoline) 5 mg IV Q6HR PRN PRN Reason: Blood Pressure Last Admin: 02/17/19 05:20 Dose: 5 mg Documented by: Sodium Chloride (Nacl 0.9%) 100 mls @ 999 mls/hr IV VEDA PRN PRN Reason: Hypotension Insulin Human Lispro (Humalog) 0 unit SUB-Q ACHS [facility]; Protocol Last Admin: 02/17/19 07:30 Dose: Not Given Documented by: Ipratropium [place] (Atrovent) 0.5 mg IH Q4HRT PRN PRN Reason: Shortness Of Breath Last Admin: 02/17/19 14:04 Dose: 0.5 mg Documented by: Isosorbide Dinitrate/Hydralazine (Bidil 20/37.5mg) 1 each PO Q8HR LUCHO Methylprednisolone Sodium Succinate (Solu-Medrol) 40 mg IV Q12HR LUCHO Last Admin: 02/17/19 11:05 Dose: 40 mg Documented by: Ondansetron HCl (Zofran) 4 mg IV Q8H PRN PRN Reason: Nausea And Vomiting Sodium Chloride (Sodium Chloride Flush Syringe 10 Ml) 10 ml IV BID LUCHO Last Admin: 02/17/19 11:05 Dose: 10 ml Documented by: Sodium Chloride (Sodium Chloride Flush Syringe 10 Ml) 10 ml IV PRN PRN PRN Reason: LINE FLUSH Review of Systems All systems: negative Exam - Vital Signs Vital signs: Vital Signs Pulse Ox 100 02/16/19 23:33 - General Appearance General appearance: well-developed, well-nourished EENT: ATNC Respiratory: Clear to Ascultation Heart: regular, S1S2 Gastrointestinal: Present: normal. Absent: tenderness, distended Integumentary: no rash, warm and dry Musculoskeletal: Present: other (no edema) Psychiatric: cooperative Results - Lab Results 02/17/19 05:56 02/17/19 05:56 Most recent lab results Calcium 8.2 mg/dL (8.4-10.2) L 02/17/19 05:56 Assessment and Plan Impression * End-stage renal disease on maintenance hemodialysis * Acute hypoxic resp failure secondary to pulmonary edema * Hyperkalemia, mild * Hypertension * Type II DM * History of renal transplant * Anemia secondary to ESRD Recommendations * Patient reports that he last dialyzed yesterday at his outpatient dialysis center. Note 2h HD treatment ordered for today * Resume MWF schedule tomorrow * UF as tolerated * Will add Norvasc 10mg daily * Avoid nephrotoxins * Monitor fluid status and electrolytes closely * No IV, BP or venipuncture and his access arm * Adjust diet and meds for ESRD state
--- NOTE | 2019-02-17 17:10 | Event Note ---
Date: 02/17/19 I was informed by that this patient belongs to . Will sign off.
[2019-02-17] MEDS ORDERED: NACL 0.9 (PRIMING MACHINE ONLY DIALYSIS) MC ONE (17:12)
[2019-02-17] MEDS: BIDIL 20/37.5MG PO SCH ×2 (18:47→21:46)
[2019-02-17] MEDS: NORVASC PO SCH (21:46)
[2019-02-18] MEDS: BIDIL 20/37.5MG PO SCH ×3 (05:56→22:07)
[2019-02-18] MEDS: HumaLOG SUB-Q SCH ×4 (08:18→22:09)
--- NOTE | 2019-02-18 08:28 | Progress Note ---
Assessment and Plan - Patient Problems (1) Diabetes mellitus, without long-term current use of insulin Current Visit: Yes Status: Acute Qualifiers: Diabetes mellitus complication detail: with chronic kidney disease Chronic kidney disease stage: on chronic dialysis Plan to address problem: Family history for diabetic control on current medication of consciousness him with sliding scale coverage with regular insulin (2) HTN (hypertension) Current Visit: No Status: Acute Qualifiers: Hypertension type: essential hypertension Qualified Code(s): I10 - Essential (primary) hypertension Plan to address problem: Blood pressure medication being adjusted for better on optimal control of blood pressure (3) ESRD needing dialysis Current Visit: No Status: Chronic Plan to address problem: Patient currently on hemodialysis Saturday, will continue hemodialysis per nephrology orders (4) Elevated troponin Current Visit: No Status: Resolved Plan to address problem: Secondary to chronic hypertension and end-stage renal disease, troponin noted to be elevated over the years (5) Uncontrolled hypertension Current Visit: No Status: Resolved Plan to address problem: Continue to adjust current blood pressure medication, nephrology noted has added Norvasc to her current therapy will observe for possible discharge after hemodialysis tomorrow. Blood pressure continues to improve Subjective Date of service: 02/18/19 Principal diagnosis: end-stage renal disease on hemodialysis, uncontrolled hypertension, type 2 Interval history: Patient is seen and examined, chart reviewed, image consultant notes reviewed. Patient well-known to our service from previous hospitalization and outpatient management. Patient is a 76-year-old male with history of end-stage renal disease on hemodialysis previous renal transplant with rejection of transplant approximately 2 years ago now back on hemodialysis. Patient has had frequent hospitalization post dialysis within the last few months most recent hospitalization was at [facility] 3 weeks ago when patient became bradycardic and hypotensive while on hemodialysis. Patient was hospitalized and subsequently discharged back to the senior care where patient is currently a resident. Patient now being readmitted on account of elevated blood pressure postdialysis which could not be controlled. Patient denied any new complaints no chest pain or shortness of breath at this time. Vital signs reviewed today shows blood pressure is slightly elevated patient's bone drier operator is Dr. Clifton as well as Dr. Brewer Objective - Exam Narrative Exam: GENERAL: Patient resting comfortably in bed not in acute distress, chronically ill-looking HEENT: Not jaundiced no cyanosis mildly pale NECK: Engorged neck veins, no thyroid enlargement, no lymphadenopathy CHEST/LUNGS: Reduced air exchange bibasilarly, pupil strabismus or crackles bilaterally, no wheeze No chest wall tenderness, percussion is normal, symmetrical chest wall. HEART/CARDIOVASCULAR: Tachycardia. Second heart sounds ABDOMEN: Abdomen is soft, nondistended, no tenderness no guarding, colostomy in place, active bowel sounds. Liver and spleen kidneys are not palpably enlarged, multiple healed laparotomy scars SKIN: Warm and dry skin scaly rash in lower extremities NEURO: Awake, alert, oriented x3, speech normal. Power 5/5 in all the extremities. EXTREMITIES: No pedal edema, good peripheral pulses, no finger or toe clubbing. - Constitutional Vitals: Vital Signs - 12hr 02/17/19 02/18/19 02/18/19 21:05 00:10 05:10 Temperature 98.0 F 98.0 F Pulse Rate 76 Respiratory 18 18 Rate Blood Pressure 159/82 164/95 O2 Sat by Pulse 95 91 Oximetry - Labs CBC & Chem 7: 02/17/19 05:56 02/17/19 05:56 Labs: Abnormal lab results 02/17/19 02/17/19 02/17/19 Range/Units 08:27 11:27 17:29 POC Glucose 123 H 174 H 190 H (70-105) 02/17/19 02/18/19 Range/Units 21:23 07:50 POC Glucose 131 H 120 H (70-105)
[2019-02-18] MEDS: CATAPRES PO SCH ×3 (09:33→21:10)
[2019-02-18] MEDS: NORVASC PO SCH (09:39)
[2019-02-18] MEDS: SODIUM CHLORIDE FLUSH SYRINGE 10 ML IV SCH ×2 (09:40→21:10)
[2019-02-18] MEDS: LOVENOX SUB-Q SCH (09:40)
[2019-02-18] MEDS: SOLU-Medrol IV SCH ×2 (09:40→21:10)
--- NOTE | 2019-02-18 10:42 | Progress Note ---
Assessment and Plan Impression * End-stage renal disease on maintenance hemodialysis * Acute hypoxic resp failure secondary to pulmonary edema * Hyperkalemia, mild * Hypertension * Type II DM * History of renal transplant * Anemia secondary to ESRD Recommendations * HD qMWF schedule tomorrow * UF as tolerated * added Norvasc 10mg daily * Avoid nephrotoxins * Monitor fluid status and electrolytes closely * No IV, BP or venipuncture and his access arm * Adjust diet and meds for ESRD state Subjective Date of service: 02/18/19 Principal diagnosis: end-stage renal disease on hemodialysis, uncontrolled hy pertension, type 2 Interval history: resting in bed today Objective - Exam Narrative Exam: General appearance: well-developed, well-nourished EENT: ATNC Respiratory: Clear to Ascultation Heart: regular, S1S2 Gastrointestinal: Present: normal. Absent: tenderness, distended Integumentary: no rash, warm and dry Musculoskeletal: Present: other (no edema) Psychiatric: cooperative - Vital Signs Vital signs: Vital Signs - 12hr 02/18/19 02/18/19 02/18/19 00:10 05:10 09:15 Temperature 98.0 F 98.0 F Pulse Rate 76 Respiratory 18 18 Rate Blood Pressure 159/82 164/95 O2 Sat by Pulse 91 100 Oximetry 02/18/19 02/18/19 09:33 09:39 Temperature Pulse Rate 85 85 Respiratory Rate Blood Pressure 146/87 146/87 O2 Sat by Pulse Oximetry - Lab 02/17/19 05:56 02/17/19 05:56 Most recent lab results Calcium 8.2 mg/dL (8.4-10.2) L 02/17/19 05:56 Medications & Allergies - Medications Allergies/Adverse Reactions: Allergies No Known Allergies Allergy (Unverified 04/18/15 19:25) Home Medications: Home Medications Medication Instructions Recorded Confirmed Last Taken Type Isosorb Dinit/Hydralazine [Bidil 1 each PO Q8HR tablet 08/20/18 02/17/19 1 Day Ago Rx 20/37.5MG] ~02/16/19 cloNIDine [Catapres] 0.2 mg PO TID tablet 08/20/18 02/17/19 2 Days Ago Rx ~02/15/19 Active Medications: Generic Name Dose Route Start Last Admin Trade Name Freq PRN Reason Stop Dose Admin Acetaminophen 650 mg 02/17/19 01:49 02/17/19 06:02 Tylenol PO 650 mg Q4H PRN Administration Pain MILD(1-3)/Fever >100.5/[place] Albuterol 2.5 mg 02/17/19 06:53 02/17/19 14:02 Proventil IH 2.5 mg Q4HRT PRN Administration Shortness Of Breath Amlodipine Besylate 10 mg 02/17/19 20:00 02/18/19 09:39 Norvasc PO 10 mg QDAY LUCHO Administration Clonidine HCl 0.2 mg 02/17/19 08:00 02/18/19 09:33 Catapres PO 0.2 mg TID LUCHO Administration Dextrose 50 ml 02/17/19 01:49 D50w (25gm) Syringe IV PRN PRN Hypoglycemia Enoxaparin Sodium 30 mg 02/18/19 10:00 02/18/19 09:40 Lovenox SUB-Q 30 mg QDAY LUCHO Administration Hydralazine HCl 5 mg 02/17/19 05:36 02/17/19 05:20 Apresoline IV 5 mg Q6HR PRN Administration Blood Pressure Sodium Chloride 100 mls @ 999 mls/hr 02/17/19 10:35 Nacl 0.9% IV VEDA PRN Hypotension Insulin Human Lispro 0 unit 02/17/19 07:30 02/18/19 08:18 Humalog SUB-Q Not Given [facility] Protocol Ipratropium [place] 0.5 mg 02/17/19 06:51 02/17/19 14:04 Atrovent IH 0.5 mg Q4HRT PRN Administration Shortness Of Breath Isosorbide Dinitrate/Hydralazine 1 each 02/17/19 14:00 02/18/19 05:56 Bidil 20/37.5mg PO 1 each Q8HR LUCHO Administration Methylprednisolone Sodium Succinate 40 mg 02/17/19 10:00 02/18/19 09:40 Solu-Medrol IV 40 mg Q12HR LUCHO Administration Ondansetron HCl 4 mg 02/17/19 01:49 Zofran IV Q8H PRN Nausea And Vomiting Sodium Chloride 10 ml 02/17/19 10:00 02/18/19 09:40 Sodium Chloride Flush Syringe 10 Ml IV 10 ml BID LUCHO Administration Sodium Chloride 10 ml 02/17/19 01:49 Sodium Chloride Flush Syringe 10 Ml IV PRN PRN LINE FLUSH
[2019-02-18] MEDS ORDERED: NACL 0.9 (PRIMING MACHINE ONLY DIALYSIS) MC ONE (19:42)
[2019-02-19] MEDS: TYLENOL PO PRN (05:25)
[2019-02-19] MEDS: BIDIL 20/37.5MG PO SCH ×3 (05:26→22:29)
[2019-02-19] MEDS: HumaLOG SUB-Q SCH ×4 (08:37→22:29)
[2019-02-19] MEDS: CATAPRES PO SCH ×3 (08:37→20:17)
[2019-02-19] MEDS: NORVASC PO SCH (09:52)
[2019-02-19] MEDS: SOLU-Medrol IV SCH ×2 (09:53→22:29)
[2019-02-19] MEDS: LOVENOX SUB-Q SCH (09:53)
[2019-02-19] MEDS: SODIUM CHLORIDE FLUSH SYRINGE 10 ML IV SCH ×2 (09:55→22:29)
--- NOTE | 2019-02-19 10:00 | Progress Note ---
Assessment and Plan Roberto Shah man with a history of hypertension, end-stage renal disease on dialysis, diabetes, comes to the emergency room because his blood pressure was elevated after dialysis. They gave him some medication but his blood pressure did not responded appropriately. He also complained of shortness of breath. The patient was seen here a few days ago for the same, his blood pressure was elevated after dialysis, he was treated in the emergency room and discharged back to [facility]. - End-stage renal disease on maintenance hemodialysis Resume MWF schedule per Nephrology Avoid nephrotoxic agents Renal diet Monitr fluid status - Acute hypoxic resp failure secondary to pulmonary edema UF as tolerated - Hyperkalemia, mild anticipate improvement with HD - Hypertension Optimize with oral antihypertensive D/c Amlodipie Commence Nifedipine 60 mg bid - Type II DM SSI and consistent Carbohydrate diet - History of renal transplant * Anemia secondary to ESRD DVT priophylaxis with Heparin and Gi with pepcid Code status : Full code Time spent: 25 mins Subjective Date of service: 02/19/19 Principal diagnosis: end-stage renal disease on hemodialysis, uncontrolled hypertension, type 2 Interval history: no new complaint. Lying quietly in bed. Objective - Constitutional Vitals: Vital Signs - 12hr 02/19/19 02/19/19 02/19/19 01:38 04:21 05:08 Temperature 97.7 F 97.4 F L Pulse Rate 56 L 94 H Respiratory 18 20 Rate Blood Pressure 158/89 174/101 Blood Pressure 168/83 [Right] O2 Sat by Pulse 94 95 97 Oximetry 02/19/19 02/19/19 02/19/19 05:09 05:26 07:42 Temperature 97.7 F Pulse Rate 44 L 94 H 89 Respiratory 18 20 Rate Blood Pressure 168/83 174/101 173/90 Blood Pressure [Right] O2 Sat by Pulse 97 95 Oximetry 02/19/19 08:37 Temperature Pulse Rate 89 Respiratory Rate Blood Pressure 173/90 Blood Pressure [Right] O2 Sat by Pulse Oximetry General appearance: Present: no acute distress, well-nourished - EENT Eyes: PERRL, EOM intact ENT: hearing intact, clear oral mucosa Ears: bilateral: normal - Neck Neck: supple, normal ROM - Respiratory Respiratory effort: normal Respiratory: bilateral: diminished - Cardiovascular Rhythm: regular Heart Sounds: Present: S1 & S2. Absent: gallop, rub Extremities: pulses intact, No edema, normal color, Full ROM - Gastrointestinal General gastrointestinal: Present: soft, non-tender, non-distended, normal bowel sounds - Integumentary Integumentary: clear, warm, dry - Musculoskeletal Musculoskeletal: 1, strength equal bilaterally - Neurologic Neurologic: moves all extremities - Labs CBC & Chem 7: 02/17/19 05:56 02/17/19 05:56 Labs: Abnormal lab results 02/18/19 02/18/19 02/19/19 Range/Units 17:31 21:12 07:58 POC Glucose 169 H 216 H 206 H (70-105)
[2019-02-19] MEDS: PROCARDIA XL PO SCH ×2 (11:37→22:29)
--- NOTE | 2019-02-19 12:46 | Progress Note ---
Assessment and Plan Impression * End-stage renal disease on maintenance hemodialysis * Acute hypoxic resp failure secondary to pulmonary edema * Hyperkalemia, mild * Hypertension * Type II DM * History of renal transplant * Anemia secondary to ESRD Recommendations * HD qMWF schedule * UF as tolerated * Avoid nephrotoxins * Monitor fluid status and electrolytes closely * No IV, BP or venipuncture and his access arm * Adjust diet and meds for ESRD state Subjective Date of service: 02/19/19 Principal diagnosis: end-stage renal disease on hemodialysis, uncontrolled hypertension, type 2 Interval history: resting in bed today Objective - Exam Narrative Exam: General appearance: well-developed, well-nourished EENT: ATNC Respiratory: Clear to Ascultation Heart: regular, S1S2 Gastrointestinal: Present: normal. Absent: tenderness, distended Integumentary: no rash, warm and dry Musculoskeletal: Present: other (no edema) Psychiatric: cooperative - Vital Signs Vital signs: Vital Signs - 12hr 02/19/19 02/19/19 02/19/19 01:38 04:21 05:08 Temperature 97.7 F 97.4 F L Pulse Rate 56 L 94 H Respiratory 18 20 Rate Blood Pressure 158/89 174/101 Blood Pressure 168/83 [Right] O2 Sat by Pulse 94 95 97 Oximetry 02/19/19 02/19/19 02/19/19 05:09 05:26 07:42 Temperature 97.7 F Pulse Rate 44 L 94 H 89 Respiratory 18 20 Rate Blood Pressure 168/83 174/101 173/90 Blood Pressure [Right] O2 Sat by Pulse 97 95 Oximetry 02/19/19 02/19/19 02/19/19 08:37 09:52 11:28 Temperature 97.7 F Pulse Rate 89 90 83 Respiratory 16 Rate Blood Pressure 173/90 171/89 144/75 Blood Pressure [Right] O2 Sat by Pulse 92 Oximetry - Lab 02/17/19 05:56 02/17/19 05:56 Most recent lab results Calcium 8.2 mg/dL (8.4-10.2) L 02/17/19 05:56 Medications & Allergies - Medications Allergies/Adverse Reactions: Allergies No Known Allergies Allergy (Unverified 04/18/15 19:25) Home Medications: Home Medications Medication Instructions Recorded Confirmed Last Taken Type Isosorb Dinit/Hydralazine [Bidil 1 each PO Q8HR tablet 08/20/18 02/17/19 1 Day Ago Rx 20/37.5MG] ~02/16/19 cloNIDine [Catapres] 0.2 mg PO TID tablet 08/20/18 02/17/19 2 Days Ago Rx ~02/15/19 Active Medications: Generic Name Dose Route Start Last Admin Trade Name Freq PRN Reason Stop Dose Admin Acetaminophen 650 mg 02/17/19 01:49 02/19/19 05:25 Tylenol PO 650 mg Q4H PRN Administration Pain MILD(1-3)/Fever >100.5/[place] Albuterol 2.5 mg 02/17/19 06:53 02/17/19 14:02 Proventil IH 2.5 mg Q4HRT PRN Administration Shortness Of Breath Clonidine HCl 0.2 mg 02/17/19 08:00 02/19/19 08:37 Catapres PO 0.2 mg TID LUCHO Administration Dextrose 50 ml 02/17/19 01:49 D50w (25gm) Syringe IV PRN PRN Hypoglycemia Enoxaparin Sodium 30 mg 02/18/19 10:00 02/19/19 09:53 Lovenox SUB-Q 30 mg QDAY LUCHO Administration Hydralazine HCl 5 mg 02/17/19 05:36 02/17/19 05:20 Apresoline IV 5 mg Q6HR PRN Administration Blood Pressure Sodium Chloride 100 mls @ 999 mls/hr 02/17/19 10:35 Nacl 0.9% IV VEDA PRN Hypotension Insulin Human Lispro 0 unit 02/17/19 07:30 02/19/19 08:37 Humalog SUB-Q 4 unit ACHS LUCHO Administration Protocol Ipratropium [place] 0.5 mg 02/17/19 06:51 02/17/19 14:04 Atrovent IH 0.5 mg Q4HRT PRN Administration Shortness Of Breath Isosorbide Dinitrate/Hydralazine 1 each 02/17/19 14:00 02/19/19 05:26 Bidil 20/37.5mg PO 1 each Q8HR LUCHO Administration Methylprednisolone Sodium Succinate 40 mg 02/17/19 10:00 02/19/19 09:53 Solu-Medrol IV 40 mg Q12HR LUCHO Administration Nifedipine 60 mg 02/19/19 11:00 02/19/19 11:37 Procardia Xl PO 60 mg Q12HR LUCHO Administration Ondansetron HCl 4 mg 02/17/19 01:49 Zofran IV Q8H PRN Nausea And Vomiting Sodium Chloride 10 ml 02/17/19 10:00 02/19/19 09:55 Sodium Chloride Flush Syringe 10 Ml IV 10 ml BID LUCHO Administration Sodium Chloride 10 ml 02/17/19 01:49 Sodium Chloride Flush Syringe 10 Ml IV PRN PRN LINE FLUSH
[2019-02-20] MEDS: BIDIL 20/37.5MG PO SCH ×2 (05:01→15:03)
[2019-02-20] MEDS: HumaLOG SUB-Q SCH ×2 (07:30→15:04)
[2019-02-20] MEDS: CATAPRES PO SCH ×2 (08:30→15:03)
--- NOTE | 2019-02-20 08:44 | Discharge Summary ---
Providers - Providers Date of Admission: 02/17/19 01:49 Date of discharge: 02/20/19 Attending physician: LORI ALVAREZ 02/17/19 11:44 Consult to Physician [CONS] Routine Comment: Consulting Provider: ADEEL GRANT Physician Instructions: Reason For Exam: ESRD, manage bp, pt known to you per Dr. Alvarez Primary care physician: Dr Alvarez Hospitalization Reason for admission: sevely elevated BP at hemodialysis Condition: Fair Pertinent studies: CXR showed mild CHF Procedures: none Hospital course: patient is a 73 y/o male with a history of hypertension, end-stage renal disease on dialysis on MWF, diabetes, comes to the emergency room because his bl ood pressure was elevated after dialysis. They gave him some medication but his blood pressure did not responded appropriately. He also complained of shortness of breath. The patient was seen here a few days ago for the same, his blood pressure was elevated after dialysis, he was treated in the emergency room and [facility] On admission was commence on oral antihyperrtensive, continue with hemodialysis by nephrologists who were consulted. Denies any chest pain. Shortness of breath improved. Blood pressure controlled. Patient was discharged back to SNF and to f/u with his PCP Dr. Alvarez Disposition: [id number]/[id number] SNF [facility] Time spent for discharge: 35 min - Discharge Diagnoses (1) Diabetes mellitus, without long-term current use of insulin Status: Acute Qualifiers: Diabetes mellitus complication detail: with chronic kidney disease Chronic kidney disease stage: on chronic dialysis (2) Bradycardia Status: Acute (3) HTN (hypertension) Status: Acute Qualifiers: Hypertension type: essential hypertension Qualified Code(s): I10 - Essential (primary) hypertension (4) Anemia Status: Chronic Qualifiers: Anemia type: due to chronic kidney disease Chronic kidney disease stage: on chronic dialysis Qualified Code(s): N18.6 - End stage renal disease; D63.1 - Anemia in chronic kidney disease; Z99.2 - Dependence on renal dialysis Comment: Hemoglobin noted to be stable for the period of hospitalization despite ongoing hematuria (5) ESRD needing dialysis Status: Chronic Comment: . Patient to follow-up with is oral communication instructor Dr. 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 Qualified Code(s): E11.65 - Type 2 diabetes mellitus with hyperglycemia Comment: Continue current ongoing diabetes management and monitor blood sugar at home as previously Core Measure Documentation - Palliative Care Palliative Care/ Comfort Measures: Not Applicable - Core Measures Any of the following diagnoses?: none Exam - Constitutional Vitals: Temp Pulse Resp BP Pulse Ox 97.5 F L 79 16 98/56 88 02/20/19 03:45 02/20/19 05:01 02/20/19 03:45 02/20/19 05:01 02/20/19 03:45 General appearance: Present: no acute distress, well-nourished - EENT Eyes: Present: PERRL ENT: hearing intact, clear oral mucosa - Neck Neck: Present: supple, normal ROM - Respiratory Respiratory effort: normal Respiratory: bilateral: CTA - Cardiovascular Heart Sounds: Present: S1 & S2. Absent: rub, click - Extremities Extremities: pulses symmetrical, No edema Peripheral Pulses: within normal limits - Abdominal General gastrointestinal: Present: soft, non-tender, non-distended, normal bowel sounds - Integumentary Integumentary: Present: clear, warm, dry - Musculoskeletal Musculoskeletal: gait normal, strength equal bilaterally - Psychiatric Psychiatric: appropriate mood/affect, intact judgment & insight - Neurologic Neurologic: CNII-XII intact, moves all extremities Plan Activity: fall precautions Weight Bearing Status: Non-Weight Bearing Diet: diabetic, renal Follow up with: RENEA CARSON MD [Primary Care Provider] - 7 Days Prescriptions: NIFEdipine XL [Procardia Xl] 60 mg PO Q12HR #60 tablet
[2019-02-20] MEDS ORDERED: NACL 0.9 (PRIMING MACHINE ONLY DIALYSIS) MC ONE (08:48)
--- NOTE | 2019-02-20 10:52 | Progress Note ---
Assessment and Plan Impression * End-stage renal disease on maintenance hemodialysis * Acute hypoxic resp failure secondary to pulmonary edema * Hyperkalemia, mild * Hypertension * Type II DM * History of renal transplant * Anemia secondary to ESRD Recommendations * HD qMWF schedule * UF as tolerated * Avoid nephrotoxins * Monitor fluid status and electrolytes closely * No IV, BP or venipuncture and his access arm * Adjust diet and meds for ESRD state Subjective Date of service: 02/20/19 Principal diagnosis: end-stage renal disease on hemodialysis, uncontrolled hypertension, type 2 Interval history: resting in bed today Objective - Exam Narrative Exam: General appearance: well-developed, well-nourished EENT: ATNC Respiratory: Clear to Ascultation Heart: regular, S1S2 Gastrointestinal: Present: normal. Absent: tenderness, distended Integumentary: no rash, warm and dry Musculoskeletal: Present: other (no edema) Psychiatric: cooperative - Vital Signs Vital signs: Vital Signs - 12hr 02/19/19 02/20/19 02/20/19 23:13 03:45 05:01 Temperature 97.3 F L 97.5 F L Pulse Rate 76 79 79 Respiratory 12 16 Rate Blood Pressure 97/48 98/56 98/56 O2 Sat by Pulse 94 88 Oximetry - Lab 02/17/19 05:56 02/17/19 05:56 Most recent lab results Calcium 8.2 mg/dL (8.4-10.2) L 02/17/19 05:56 Medications & Allergies - Medications Allergies/Adverse Reactions: Allergies No Known Allergies Allergy (Unverified 04/18/15 19:25) Home Medications: Home Medications Medication Instructions Recorded Confirmed Last Taken Type ALBUTEROL NEB's [Proventil 0.083% 2.5 mg IH Q4HRT PRN nebu 02/20/19 Unknown Rx NEBS] Ipratropium [Atrovent NEB] 0.5 mg IH Q4HRT PRN nebu 02/20/19 Unknown Rx Isosorb Dinit/Hydralazine [Bidil 1 each PO Q8HR tablet 02/20/19 Unknown Rx 20/37.5MG] NIFEdipine XL [Procardia Xl] 60 mg PO Q12HR #60 tablet 02/20/19 Unknown Rx cloNIDine [Catapres] 0.2 mg PO TID tablet 02/20/19 Unknown Rx Active Medications: Generic Name Dose Route Start Last Admin Trade Name Freq PRN Reason Stop Dose Admin Acetaminophen 650 mg 02/17/19 01:49 02/19/19 05:25 Tylenol PO 650 mg Q4H PRN Administration Pain MILD(1-3)/Fever >100.5/[place] Albuterol 2.5 mg 02/17/19 06:53 02/17/19 14:02 Proventil IH 2.5 mg Q4HRT PRN Administration Shortness Of Breath Clonidine HCl 0.2 mg 02/17/19 08:00 02/20/19 08:30 Catapres PO Not Given TID LUCHO Dextrose 50 ml 02/17/19 01:49 D50w (25gm) Syringe IV PRN PRN Hypoglycemia Enoxaparin Sodium 30 mg 02/18/19 10:00 02/19/19 09:53 Lovenox SUB-Q 30 mg QDAY LUCHO Administration Hydralazine HCl 5 mg 02/17/19 05:36 02/17/19 05:20 Apresoline IV 5 mg Q6HR PRN Administration Blood Pressure Sodium Chloride 100 mls @ 999 mls/hr 02/17/19 10:35 Nacl 0.9% IV VEDA PRN Hypotension Insulin Human Lispro 0 unit 02/17/19 07:30 02/20/19 07:30 Humalog SUB-Q Not Given ACHS COUNTS INCLUDE 234 BEDS AT THE [facility] Protocol Ipratropium [place] 0.5 mg 02/17/19 06:51 02/17/19 14:04 Atrovent IH 0.5 mg Q4HRT PRN Administration Shortness Of Breath Isosorbide Dinitrate/Hydralazine 1 each 02/17/19 14:00 02/20/19 05:01 Bidil 20/37.5mg PO Not Given Q8HR COUNTS INCLUDE 234 BEDS AT THE [facility] Methylprednisolone Sodium Succinate 40 mg 02/17/19 10:00 02/19/19 22:29 Solu-Medrol IV 40 mg Q12HR LUCHO Administration Ondansetron HCl 4 mg 02/17/19 01:49 Zofran IV Q8H PRN Nausea And Vomiting Sodium Chloride 10 ml 02/17/19 10:00 02/19/19 22:29 Sodium Chloride Flush Syringe 10 Ml IV 10 ml BID LUCHO Administration Sodium Chloride 10 ml 02/17/19 01:49 Sodium Chloride Flush Syringe 10 Ml IV PRN PRN LINE FLUSH
[2019-02-20] MEDS: LOVENOX SUB-Q SCH (15:03)
[2019-02-20] MEDS: SOLU-Medrol IV SCH (15:03)
[2019-02-20] MEDS: SODIUM CHLORIDE FLUSH SYRINGE 10 ML IV SCH (15:03)
[2019-02-20 15:31] VITALS: BP 124/51
[2019-02-21] MEDS ORDERED: PROCARDIA XL PO SCH (10:00)
== END 2019-02-20 15:15 | DRG 291 ==
LOC: ED 23:03 → 4A 02-17 01:49
PROVIDERS: ADMIT Internal Medicine; ATTEND Internal Medicine
PROC: 5A1D70Z Performance of Urinary Filtration, Intermittent, Less than 6 Hours Per Day (ICD-10-PCS; principal; 2019-02-17)
PROC: 4A033R1 Measurement of Arterial Saturation, Peripheral, Percutaneous Approach (ICD-10-PCS; 2019-02-17)
PROC: 5A1D70Z Performance of Urinary Filtration, Intermittent, Less than 6 Hours Per Day (ICD-10-PCS; 2019-02-18)
PROC: 5A1D70Z Performance of Urinary Filtration, Intermittent, Less than 6 Hours Per Day (ICD-10-PCS; 2019-02-20)
DX: I13.0 Hypertensive heart and chronic kidney disease with heart failure and stage 1 through stage 4 chronic kidney disease, or unspecified chronic kidney disease (principal); J96.01 Acute respiratory failure with hypoxia; N18.6 End stage renal disease; Z94.0 Kidney transplant status; J20.9 Acute bronchitis, unspecified; E11.22 Type 2 diabetes mellitus with diabetic chronic kidney disease; R00.1 Bradycardia, unspecified; D64.9 Anemia, unspecified; D63.1 Anemia in chronic kidney disease; E87.5 Hyperkalemia; E11.65 Type 2 diabetes mellitus with hyperglycemia; I50.9 Heart failure, unspecified; Z82.49 Family history of ischemic heart disease and other diseases of the circulatory system; Z93.3 Colostomy status
CPT/HCPCS: 36415; 71045; 80048; 80053; 80061; 82140; 82550; 82553; 82803; 82962; 84484; 85025; 85610; 85730; 93005; 93010; 94640; 94760; G0378; J0360; J1650; J1815; J2920; J2930; J7030